=== PATIENT | female | born 1935 | race Caucasian/White ===

== ENCOUNTER 2017-12-11 07:32 | Emergency (ER) | payer MEDICARE ==
[2017-12-11] MEDS ORDERED: ASPIRIN 81 MG TABLET, CHEWABLE PO ONE (09:16)
--- NOTE | 2017-12-11 09:23 | ER Document Report ---
ED General - General Chief Complaint: High Blood Pressure Stated Complaint: POSSIBLE HIGH BLOOD PRESSURE/ NUMBNESS Time Seen by Provider: 12/11/17 08:40 Mode of Arrival: Ambulatory Information source: Patient Notes: 82 years old female presents today with complaint of left hand numbness chest pain and left facial numbness for the last 3 days. 3 days ago she was seen by the primary care physician. She states the numbness and pain in the hand is continuous. Only involving the hand and not the entire arm. The chest pain she says also continuous mild to moderate in intensity. It is not exacerbated by any activities or change of position. But when pressed upon it hurts more. Left facial numbness she describes the numbness as left half of the face. Persistent. Had some headache on and off. No nausea vomiting palpitation or diaphoresis. Denies any focal weakness numbness tingling sensation in other parts of the body. TRAVEL OUTSIDE OF THE [place] IN LAST 30 DAYS: No - HPI Onset: Other - 3 days ago Onset/Duration: Gradual Quality of pain: Achy Severity: Moderate Associated symptoms: denies: None, Allergy/hay fever, Body/muscle aches, Chest pain, Chills, Nonproductive cough, Productive cough, Diarrhea, Drooling, Earache , Fever, Headache, Hoarseness, Hurts to breath, Leg swelling, Nausea, Vomiting, Rhinnorhea, Sinus pain/drainage, Shortness of breath, Slow to respond, Sore throat, Sweating, Weakness, Other Exacerbated by: denies: Denies, Supine, Sitting, Standing, Movement, Walking, Coughing, Deep breathing, Food, Other Relieved by: denies: Denies, Supine, Sitting, Standing, Remaining still, Antacids, Food, Other Similar symptoms previously: No - Related Data Allergies/Adverse Reactions: Sulfa (Sulfonamide Antibiotics) Allergy (Unknown, Verified 12/11/17 07:33) metformin Allergy (Verified 12/11/17 07:33) Past Medical History - General Information source: Patient - Social History Smoking Status: Never Smoker Cigarette use (# per day): No Chew tobacco use (# tins/day): No Frequency of alcohol use: None Drug Abuse: None Family History: Reviewed & Not Pertinent Patient has suicidal ideation: No Patient has homicidal ideation: No - Past Medical History Cardiac Medical History: Reports: Hx Hypertension - medicated Denies: Hx Heart Attack Pulmonary Medical History: Denies: Hx Asthma Neurological Medical History: Denies: Hx Cerebrovascular Accident, Hx Seizures Endocrine Medical History: Reports: Hx Diabetes Mellitus Type 2 Renal/ Medical History: Denies: Hx Peritoneal Dialysis GI Medical History: Denies: Hx Hepatitis, Hx Hiatal Hernia, Hx Ulcer Infectious Medical History: Denies: Hx Hepatitis Past Surgical History: Reports: Hx Vascular Surgery - right carotid "cleaned out ". Denies: Hx Hysterectomy, Hx Mastectomy, Hx Open Heart Surgery, Hx Pacemaker - Immunizations Hx Diphtheria, Pertussis, Tetanus Vaccination: Yes Review of Systems - Review of Systems Constitutional: denies: No symptoms reported, See HPI, Chills, Diaphoresis, Fever, Malaise, Weakness, Other, Weight gain, Weight loss, Recent illness EENT: denies: No symptoms reported, See HPI, Eye pain, Eye discharge, Blurred vision, Tearing, Double vision, Ear pain, Ear discharge, Nose pain, Nose congestion, Nose discharge, Sinus pressure, Sinus discharge, Throat pain, Difficulty swallowing, Throat swelling, Mouth pain, Mouth swelling, Dental problem, Vertigo, Other Cardiovascular: Chest pain. denies: No symptoms reported, See HPI, Palpitations , Heart racing, Orthopnea, Dyspnea, Syncope, Dizziness, Lightheaded, Edema, Other, Paroxysmal Nocturnal Dysp Respiratory: denies: No symptoms reported, See HPI, Cough, Hurts to breathe, Hemoptysis, Short of breath, Sputum, Stridor, Wheezing, Other Gastrointestinal: denies: No symptoms reported, See HPI, Abdomen distended, Abdominal pain, Diarrhea, Nausea, Vomiting, Constipation, Blood streaked bowels , Poor appetite, Poor fluid intake, Blood in vomit, Black stools, Rectal bleeding, Last bowel movement, Fecal incontinence, Other Genitourinary: denies: No symptoms reported, See HPI, Burning, Dysuria, Discharge, Frequency, Flank pain, Hematuria, Incontinence, Pain, Urgency, Retention, Other Musculoskeletal: denies: No symptoms reported, See HPI, Back pain, Gout, Joint pain, Joint swelling, Muscle pain, Muscle stiffness, Neck pain, Deformity, Leg swelling, Ankle swelling, Other Skin: denies: No symptoms reported, See HPI, Change in color, Change in hair/ nails, Dryness, Lesions, Lumps, Rash, Other Hematologic/Lymphatic: denies: No symptoms reported, See HPI, Anemia, Blood clots, Easy bleeding, Easy bruising, Enlarged lymph nodes, Swollen glands, Other Neurological/Psychological: denies: No symptoms reported, See HPI, Confusion, Dementia, Depression, Hallucinations, Anxiety, Homicidal ideation, Sensory change, Weakness, Gait changes, Loss of power, Paralysis, Seizure, Lost consciousness, Headaches, Speech impairment, Numbness, Suicidal ideation, Tingling, Tremor, Other Physical Exam - Vital signs Vitals: Temp Pulse Resp BP Pulse Ox 98.4 F 80 20 231/97 H 95 12/11/17 07:39 12/11/17 07:39 12/11/17 07:39 12/11/17 07:39 12/11/17 07:39 - Notes Notes: PHYSICAL EXAMINATION: GENERAL: Well-appearing, well-nourished and in no acute distress. Appeared to be anxious HEAD: Atraumatic, normocephalic. EYES: Pupils equal round and reactive to light, extraocular movements intact, conjunctiva are normal. ENT: Nares patent, oropharynx clear without exudates. Moist mucous membranes. NECK: Normal range of motion, supple without lymphadenopathy LUNGS: Breath sounds clear to auscultation bilaterally and equal. No wheezes rales or rhonchi. Chest wall: Chest wall tenderness noted over the left side of the chest wall. HEART: Regular rate and rhythm without murmurs ABDOMEN: Soft, nontender, nondistended abdomen. No guarding, no rebound. No masses appreciated. Female : deferred Musculoskeletal: Normal range of motion, no pitting or edema. No cyanosis. NEUROLOGICAL: Cranial nerves grossly intact. Normal speech, normal gait. Normal sensory, motor exams PSYCH: Normal mood, normal affect. SKIN: Warm, Dry, normal turgor, no rashes or lesions noted. Course - Vital Signs Vital signs: Temp Pulse Resp BP Pulse Ox 98.4 F 77 17 171/90 H 95 12/11/17 07:39 12/11/17 08:35 12/11/17 11:01 12/11/17 11:01 12/11/17 11:01 - Laboratory Result Diagrams: 12/11/17 08:19 12/11/17 08:19 Laboratory results interpreted by me: 12/11/17 12/11/17 08:19 08:19 RBC 5.51 H RDW 14.9 H Carbon Dioxide 21 L Glucose 182 H Direct Bilirubin 0.6 H AST 42 H Total Protein 8.3 H - Diagnostic Test Radiology reviewed: Image reviewed, Reports reviewed Radiology results interpreted by me: 12/11/17 11:37 CT of the brain reported by radiologist as no acute stroke or a bleed. Some ischemic changes. Chest x-ray reported by radiologist as normal with no infiltration effusion or pneumothorax - EKG Interpretation by Me EKG shows normal: Sinus rhythm, [place] Rate: Normal Rhythm: NSR When compared to previous EKG there are: No significant change - Electrocardiogram shows normal sinus rhythm at rate of 76 bpm normal axis no acute ST elevation ST depression T-wave inversion noted. Nonspecific Q-wave in lead III. Discharge - Discharge Clinical Impression: Carpal tunnel syndrome of left wrist, Chest wall pain Condition: Fair Disposition: HOME, SELF-CARE Instructions: Chest Wall Pain ([facility]) Additional Instructions: Carpal tunnel syndrome Prescriptions: Oxycodone HCl/Acetaminophen [Percocet 5-325 mg Tablet] 1 - 2 tab PO Q4H PRN #15 tablet PRN Reason:
--- NOTE | 2017-12-11 10:08 | RADIOLOGY REPORT (SQ) ---
EXAM DESCRIPTION: CHEST SINGLE VIEW COMPLETED DATE/TIME: 12/11/2017 9:39 am REASON FOR STUDY: Chest pain COMPARISON: Two-view chest 02/23/2011 EXAM PARAMETERS: NUMBER OF VIEWS: One view. TECHNIQUE: Single frontal radiographic view of the chest acquired. RADIATION DOSE: NA LIMITATIONS: None. FINDINGS: LUNGS AND PLEURA: No opacities, masses or pneumothorax. No pleural effusion. MEDIASTINUM AND HILAR STRUCTURES: No masses. Contour normal. HEART AND VASCULAR STRUCTURES: Heart normal in size. Normal vasculature. BONES: No acute findings. HARDWARE: None in the chest. OTHER: No other significant finding. IMPRESSION: NO ACUTE RADIOGRAPHIC FINDING IN THE CHEST. TECHNICAL DOCUMENTATION: JOB ID: [id number] [employer]- All Rights Reserved Reading location - IP/workstation name: [email or web address]
[2017-12-11 10:25] LABS: ABSOLUTE BASOPHILS # (AUTO) 0.1 10^3/uL (0.0-0.2); ABSOLUTE EOSINOPHILS # (AUTO) 0.1 10^3/uL (0.0-0.6); ABSOLUTE MONOCYTES (AUTO) 0.7 10^3/uL (0.1-1.4); ABSOLUTE NEUT (AUTO) 6.4 10^3/uL (1.7-8.2); BASOPHILS % (AUTO) 0.6 % (0-2); EOSINOPHILS % (AUTO) 1.5 % (0-6); HEMATOCRIT 46.5 % (36.0-47.0); HEMOGLOBIN 15.3 g/dL (12.0-15.5); LYMPHOCYTES % (AUTO) 21.9 % (13-45); MEAN CORPUSCULAR HEMOGLOBIN 27.8 pg (27.0-33.4); MEAN CORPUSCULAR VOLUME 84 fl (80-97); MONOCYTES % (AUTO) 7.4 % (3-13); PLATELET COUNT 193 10^3/uL (150-450); RED BLOOD COUNT 5.51 10^6/uL (3.72-5.28); RED CELL DISTRIBUTION WIDTH 14.9 % (11.5-14.0); SEGMENTED NEUTROPHILS % (AUTO) 68.6 % (42-78); TOTAL CELLS COUNTED % (AUTO) 100 %; WHITE BLOOD COUNT 9.3 10^3/uL (4.0-10.5)
--- NOTE | 2017-12-11 10:26 | RADIOLOGY REPORT (SQ) ---
EXAM DESCRIPTION: CT HEAD WITHOUT COMPLETED DATE/TIME: 12/11/2017 9:48 am REASON FOR STUDY: Headache, strokelike symptoms COMPARISON: CT brain 01/26/2016 TECHNIQUE: Axial images acquired through the brain without intravenous contrast. Images reviewed wi th bone, brain and subdural windows. Images stored on PACS. All CT scanners at this facility use dose modulation, iterative reconstruction, and/or weight based d osing when appropriate to reduce radiation dose to as low as reasonably achievable (ALARA). [facility]: Dose Right [facility]: CareDose [facility]: Dose Right [facility]: Teradose 4D [facility]: Smart Anadys RADIATION DOSE: CT Rad equipment meets quality standard of care and radiation dose reduction techniq ues were employed. CTDIvol: 64.6 mGy. DLP: 1163 mGy-cm. mGy. LIMITATIONS: Mild motion artifact FINDINGS: VENTRICLES: Normal size and contour. CEREBRUM: Since the prior imaging 01/26/2016, patient has developed a well-circumscribed low-attenuati on lacunar infarct in the lateral right thalamus which is nonacute. There is moderate bifrontal and biparietal white matter small vessel ischemic change, stable. No CT evidence of acute large territor y ischemic change, acute intracranial hemorrhage, mass effect, or midline shift. CEREBELLUM: No masses. No hemorrhage. No alteration of density. No evidence for acute infarction. EXTRAAXIAL SPACES: No fluid collections. No masses. ORBITS AND GLOBE: No intra- or extraconal masses. Normal contour of globe without masses. CALVARIUM: No fracture. PARANASAL SINUSES: No fluid or mucosal thickening. SOFT TISSUES: No mass or hematoma. OTHER: No other significant finding. IMPRESSION: No acute findings today. Moderate bifrontal and biparietal chronic small vessel ischemic change, with a nonacute right alignme nt lacunar infarct. EVIDENCE OF ACUTE STROKE: NO. COMMENT: Quality ID # [id number]: Final reports with documentation of one or more dose reduction techniques (e.g., Automated exposure control, adjustment of the mA and/or kV according to patient size, use of iterative reconstruction technique) TECHNICAL DOCUMENTATION: JOB ID: [id number] [employer]- All Rights Reserved Reading location - IP/workstation name: [facility]
[2017-12-11 10:44] LABS: CREATINE KINASE MB 0.41 ng/mL (<4.55)
[2017-12-11 10:46] LABS: TROPONIN I < 0.012 ng/mL
[2017-12-11 10:59] LABS: ALANINE AMINOTRANSFERASE 20 U/L (9-52); ALBUMIN 4.7 g/dL (3.5-5.0); ALKALINE PHOSPHATASE 94 U/L (38-126); ANION GAP 16 (5-19); ASPARTATE AMINO TRANSFERASE 42 U/L (14-36); BILIRUBIN,DIRECT 0.6 mg/dL (0.0-0.4); BILIRUBIN,TOTAL 0.7 mg/dL (0.2-1.3); BLOOD UREA NITROGEN 16 mg/dL (7-20); CALCIUM 9.9 mg/dL (8.4-10.2); CARBON DIOXIDE 21 mmol/L (22-30); CHLORIDE 107 mmol/L (98-107); CREATINE KINASE 50 U/L (30-135); GLUCOSE 182 mg/dL (75-110); POTASSIUM 4.5 mmol/L (3.6-5.0); SODIUM 144.2 mmol/L (137-145); TOTAL PROTEIN 8.3 g/dL (6.3-8.2)
[2017-12-11 12:08] VITALS: BP 163/96
--- NOTE | 2017-12-11 13:04 | EKG REPORT ---
SEVERITY:- ABNORMAL ECG - SINUS RHYTHM NONSPECIFIC T ABNORMALITIES, LATERAL LEADS : Confirmed by: Ralf Cabrera MD 11-Dec-2017 13:03:54
== END 2017-12-11 12:08 | disposition home or self-care (01) ==
LOC: ER 07:32
DX: R07.89 Other chest pain (principal); G56.02 Carpal tunnel syndrome, left upper limb; R20.0 Anesthesia of skin; E11.9 Type 2 diabetes mellitus without complications; R51 Headache; Z88.8 Allergy status to other drugs, medicaments and biological substances; Z88.2 Allergy status to sulfonamides
CPT/HCPCS: 93005; 99284; 36415; 82553; 82550; 85025; 80053; 84484; 71045; 70450; 93010; A9270

== ENCOUNTER → 2018-02-12 | Day surgery (SDC) | payer MEDICARE ==
[~2018-02-12] MED LIST: BUPIVACAINE HCL 0.5 % INJ/PF 30 ML SDV ONE; CEFAZOLIN SODIUM 2 GM in DEXTROSE 5%-WATER 100 ML IV PRN; LIDOCAINE 1% INJ-PF (10 MG/ML) 30 ML SDV ONE
[2018-02-12 07:32] LABS: HEMATOCRIT 43.3 % (36.0-47.0); HEMOGLOBIN 14.3 g/dL (12.0-15.5); MEAN CORPUSCULAR HEMOGLOBIN 28.1 pg (27.0-33.4); MEAN CORPUSCULAR HGB CONC 33.1 g/dL (32.0-36.0); MEAN CORPUSCULAR VOLUME 85 fl (80-97); PLATELET COUNT 172 10^3/uL (150-450); RED BLOOD COUNT 5.11 10^6/uL (3.72-5.28); RED CELL DISTRIBUTION WIDTH 14.9 % (11.5-14.0); WHITE BLOOD COUNT 8.9 10^3/uL (4.0-10.5)
[2018-02-12 07:43] VITALS: BP 145/73
[2018-02-12 07:50] LABS: ANION GAP 16 (5-19); BLOOD UREA NITROGEN 29 mg/dL (7-20); CALCIUM 9.4 mg/dL (8.4-10.2); CARBON DIOXIDE 25 mmol/L (22-30); CHLORIDE 101 mmol/L (98-107); GLUCOSE 330 mg/dL (75-110); POTASSIUM 4.8 mmol/L (3.6-5.0); SODIUM 141.7 mmol/L (137-145)
--- NOTE | 2018-02-12 08:22 | RADIOLOGY REPORT (SQ) ---
EXAM DESCRIPTION: CHEST SINGLE VIEW COMPLETED DATE/TIME: 02/12/2018 7:35 am REASON FOR STUDY: pre op G56.02 CARPAL TUNNEL SYNDROME, LEFT UPPER LIMB COMPARISON: 04/05/2007, 02/23/2011, 12/11/2017 NUMBER OF VIEWS: Two view. TECHNIQUE: Frontal and lateral radiographic views of the chest acquired. LIMITATIONS: None. FINDINGS: LUNGS AND PLEURA: No opacities, masses or pneumothorax. No pleural effusion. Attenuated bl ood vessels and flattened marcela-diaphragms. MEDIASTINUM AND HILAR STRUCTURES: No masses. No contour abnormalities. HEART AND VASCULAR STRUCTURES: Heart normal in size and contour. No evidence for failure. BONES: No acute findings. HARDWARE: None in the chest. OTHER: No other significant finding. IMPRESSION: COPD. NO ACUTE RADIOGRAPHIC FINDING IN THE CHEST. TECHNICAL DOCUMENTATION: JOB ID: [id number] [employer]- All Rights Reserved Reading location - IP/workstation name: [facility]
--- NOTE | 2018-02-12 14:26 | EKG REPORT ---
SEVERITY:- ABNORMAL ECG - SINUS RHYTHM NONSPECIFIC T ABNORMALITIES, LATERAL LEADS : Confirmed by: Jony Ta 12-Feb-2018 14:25:50
== END ==
LOC: OROUT 06:29
PROVIDERS: ATTEND Orthopaedic Surgery
DX: G56.02 Carpal tunnel syndrome, left upper limb (principal); R94.31 Abnormal electrocardiogram [ECG] [EKG]
CPT/HCPCS: 36415; 85027; 80048; 71045; 93005; 93010; J0690; J3490

== ENCOUNTER 2018-02-26 06:31 | Day surgery (SDC) | payer MEDICARE ==
[~2018-02-26 06:31] MED LIST changes: +CEFAZOLIN 2 GM/D5W RTU 2 GM/50 ML RTUPB IV SCH; -CEFAZOLIN SODIUM 2 GM in DEXTROSE 5%-WATER 100 ML IV PRN
[2018-02-26] MEDS ORDERED: CEFAZOLIN SODIUM 2 GM in DEXTROSE 5%-WATER 100 ML IV PRN (08:17)
[2018-02-26] MEDS ORDERED: ONDANSETRON HCL INJ/PF 4 MG/2 ML SDV ONE (08:49)
[2018-02-26] MEDS ORDERED: FENTANYL CITRATE INJ/PF 100 MCG/2 ML AMPUL ONE (08:49)
[2018-02-26] MEDS ORDERED: MIDAZOLAM 2 MG/2 ML INJ ONE (08:49)
[2018-02-26] MEDS ORDERED: PROPOFOL INJ 200 MG/20 ML VIAL IV ONE (08:49)
[2018-02-26 09:06] LABS: APPEARANCE,URINE CLEAR; BILIRUBIN,URINE NEGATIVE (NEGATIVE); COLOR,URINE STRAW; GLUCOSE, URINE NEGATIVE (NEGATIVE); KETONES,URINE NEGATIVE (NEGATIVE); LEUKOCYTE ESTERASE,URINE NEGATIVE (NEGATIVE); NITRITE,URINE NEGATIVE (NEGATIVE); PROTEIN,URINE NEGATIVE (NEGATIVE); URINE SPECIFIC GRAVITY 1.006; UROBILINOGEN,URINE NEGATIVE mg/dL (<2.0)
[2018-02-26] MEDS ORDERED: FENTANYL CITRATE INJ/PF 100 MCG/2 ML AMPUL IV PRN ×3 (09:12)
[2018-02-26] MEDS ORDERED: ONDANSETRON HCL INJ/PF 4 MG/2 ML SDV IV PRN (09:12)
[2018-02-26] MEDS ORDERED: DIPHENHYDRAMINE HCL 50 MG/ML VIAL IV PRN (09:12)
[2018-02-26 14:12] VITALS: BP 140/76
--- NOTE | 2018-03-01 15:48 | Operative Report ---
Operative Report DATE OF SURGERY: 02/26/18 PREOPERATIVE DIAGNOSIS: Left Carpal Tunnel Syndrome POSTOPERATIVE DIAGNOSIS: Same OPERATION: Endoscopic Carpal Tunnel Release SURGEON: CLAUDIA WOODY ANESTHESIA: GA COMPLICATIONS: None ESTIMATED BLOOD LOSS: Minimal PROCEDURE: Indication for above procedure: 82-year-old female with complaints of numbness and tingling throughout her fingers. On physical examination she has findings suggesting carpal tunnel syndrome. We attempted conservative measures including bracing and injections which provided short-term but not long-term relief. Neurodiagnostic testing was also done however this was negative for carpal tunnel syndrome. Given patient's positive results after a carpal tunnel injection we discussed repeat injection versus operative intervention given the short-term relief of the injection patient elected to proceed with operative treatment. Procedure In Detail: Patient was seen and evaluated in the preoperative holding area. The LEFT upper extremity was initialized and marked. Patient received Ancef IV for bacterial prophylaxis. Patient was taken back to the operative room where transferred operative table. Patient was then placed under MAC anesthesia. Once adequately anesthetized, a nonsterile tourniquet was placed on the upper extremity. A surgical team debriefing was performed ensuring all instrumentation was available, the surgical procedure was discussed with possible concerns reviewed. Skin was prepped with alcohol a 50:50 10 mL mixture of 1% lidocaine and 0.5% Marcaine plain was injected locally and w/in carpal canal. The upper extremity was prepped with chlorhexidine and alcohol and draped in a sterile fashion. A timeout was done identifying correct patient, procedure and extremity everyone in attendance agree with this and verbalized no concerns.The extremity was then exsanguinated the tourniquet was inflated to 250 mmHg. A transverse skin incision was made just proximal to the wrist flexion crease ulnar to the palmaris longus. Blunt dissection was performed down to the palmaris longus tendon which was retracted radially. Deep to the palmaris longus tendon was the volar carpal ligament this was incised identifying the median nerve deep. With the use of a [place] elevator any soft tissue/synovium was freed from the undersurface of the transverse carpal ligament. The hook of hamate was identified ulnarly. The [employer]Med cannulas were then introduced beginning with #1 progressing to a #3 gently dilating the carpal canal. I then introduced the scope within the cannula and identified transverse carpal ligament ensuring the median nerve was not visualized within the cannula. I triangulated distally with a 25-gauge needle identifying the distal aspect of the transverse carpal ligament, to ensure protection of the superficial palmar arch. The arthroscopic knife was used to incise the transverse carpal ligament under direct visualization with the arthroscopic camera. Any excess transverse fibers that remained after the first past were carefully released with a repeat pass. The median nerve was then directly visualized radially without disruption. Once this was completed I placed the #3 dilator and assured I got complete release of the transverse carpal ligament without residual compression. The median nerve was directly visualized and free of any overlying compression. I then turned my attention to release of the volar antebrachial fascia proximally. Once again a [place] was used to open the wound and I proceeded with cannula #1 to #3. The arthroscope was introduced into the cannula and under direct visualization the volar antebrachial fascia was released. Once this was complete I copiusly irrigated the wound with normal saline. The skin incision was closed with 4-0 Monocryl subcutaneous and a running subcuticular 4-0 Monocryl. This was reinforced with Dermabond and Steri -Strips. Sterile, 4 x 4's and a Ambrosio bandage was placed loosely. Sponge counts , instrument counts and needle counts were correct. The was no intraoperative complications patient tolerated the procedure well and was stable to PACU.
--- NOTE | 2018-03-01 15:49 | Discharge Summary ---
Discharge Summary (SDC) - Discharge Final Diagnosis: Left carpal tunnel syndrome Date of Surgery: 02/26/18 Discharge Date: 02/26/18 Condition: Good Treatment or Instructions: Schedule Follow Up w/ Dr. Fabián Nevarez @ [facility] for [facility] to be seen in 10-14 days or as scheduled [place]: Ong: Enders: May remove dressing on postop day #3, keep incision covered and dry. Ice and elevate May begin finger range of motion attempting to make full fist. Stool softener of choice when on pain medication. Prescriptions: Hydrocodone/Acetaminophen [[place] 5-325 mg Tablet] 1 tab PO Q6 PRN #15 tablet PRN Reason: Referrals: TIMOTHY CARTER PA-C [Primary Care Provider] - Discharge Diet: As Tolerated Respiratory Treatments at Home: Deep Breathing/Coughing Discharge Activity: Activity As Tolerated Report the Following to Your Physician Immediately: Fever over 101 Degrees, Unusual Bleeding, Redness, Swelling, Warmth
== END 2018-02-26 12:30 | disposition home or self-care (01) ==
LOC: OROUT 06:31
PROVIDERS: ATTEND Orthopaedic Surgery
PROC: 01N54ZZ Release Median Nerve, Percutaneous Endoscopic Approach (ICD-10-PCS; principal; 2018-02-26 09:00)
DX: G56.02 Carpal tunnel syndrome, left upper limb (principal); E11.9 Type 2 diabetes mellitus without complications; I10 Essential (primary) hypertension; I20.9 Angina pectoris, unspecified; M19.90 Unspecified osteoarthritis, unspecified site; Z79.899 Other long term (current) drug therapy; Z88.8 Allergy status to other drugs, medicaments and biological substances; Z88.2 Allergy status to sulfonamides; Z79.84 Long term (current) use of oral hypoglycemic drugs; Z85.51 Personal history of malignant neoplasm of bladder; Z86.73 Personal history of transient ischemic attack (TIA), and cerebral infarction without residual deficits; Z87.891 Personal history of nicotine dependence
CPT/HCPCS: 36415; 82962; 82947; 81001; 83036; 29848; J2250; J0690; J3490; J2405; 1810; J2704; J3010

== ENCOUNTER → 2018-08-14 | Outpatient (CLI) | payer MEDICARE ==
--- NOTE | 2018-08-14 11:28 | RADIOLOGY REPORT (SQ) ---
EXAM DESCRIPTION: MRI CERVICAL SPINE WITHOUT COMPLETED DATE/TIME: 08/14/2018 10:36 am REASON FOR STUDY: CERVICAL DISC DISORDER W/ RADICULOPATHY, UNSPEC CERVICAL REGION M50.10 CERVICAL D ISC DISORDER W RADICULOPATHY, UNSP CERVICAL COMPARISON: None. TECHNIQUE: Sagittal and Axial imaging includes T1, T2, STIR and gradient echo sequences. LIMITATIONS: Mild motion artifact. FINDINGS: ALIGNMENT: Normal. VERTEBRAE: Intact. BONE MARROW: Normal. No marrow replacement or reactive changes. DISCS: Normal. No significant abnormal signal or loss of height. HARDWARE: None in the spine. CORD AND BASE OF BRAIN: Normal in size and signal intensity. SOFT TISSUES: No soft tissue masses. C1-C2: No significant spinal stenosis. C2-C3: No significant spinal stenosis or exit foraminal stenosis. C3-C4: Small asymmetric right-sided posterior disc and osteophyte formation. Borderline contact with the cervical cord. No significant spinal stenosis or exit foraminal stenosis. C4-C5: Mild posterior disc and osteophyte. No significant spinal stenosis or exit foraminal stenosis . C5-C6: Mild posterior disc and osteophyte. No significant spinal stenosis or exit foraminal stenosis . C6-C7: Mild posterior disc and osteophyte. Left uncovertebral spurring with left exit foraminal sten osis. No significant spinal stenosis. C7-T1: No significant spinal stenosis or exit foraminal stenosis. UPPER THORACIC: Incompletely imaged. No significant spinal stenosis or exit foraminal stenosis. OTHER: No other significant finding. IMPRESSION: MILD DEGENERATIVE CHANGES DESCRIBED ABOVE. TECHNICAL DOCUMENTATION: JOB ID: [id number] [employer]- All Rights Reserved Reading location - IP/workstation name: [facility]-[email or web address]
== END ==
LOC: RAD 09:57
PROVIDERS: ATTEND Orthopaedic Surgery
DX: M50.10 Cervical disc disorder with radiculopathy, unspecified cervical region (principal)
CPT/HCPCS: 72141

== ENCOUNTER → 2019-01-12 | Outpatient (CLI) | payer MEDICARE ==
[2019-01-12 09:04] LABS: ABSOLUTE EOSINOPHILS # (AUTO) 0.1 10^3/uL (0.0-0.6); ABSOLUTE LYMPHOCYTES (AUTO) 1.9 10^3/uL (0.5-4.7); ABSOLUTE MONOCYTES (AUTO) 0.7 10^3/uL (0.1-1.4); ABSOLUTE NEUT (AUTO) 5.2 10^3/uL (1.7-8.2); BASOPHILS % (AUTO) 0.6 % (0-2); EOSINOPHILS % (AUTO) 1.3 % (0-6); HEMATOCRIT 50.9 % (36.0-47.0); HEMOGLOBIN 16.9 g/dL (12.0-15.5); LYMPHOCYTES % (AUTO) 23.9 % (13-45); MEAN CORPUSCULAR HEMOGLOBIN 27.4 pg (27.0-33.4); MEAN CORPUSCULAR HGB CONC 33.2 g/dL (32.0-36.0); MEAN CORPUSCULAR VOLUME 82 fl (80-97); MONOCYTES % (AUTO) 8.5 % (3-13); PLATELET COUNT 174 10^3/uL (150-450); RED BLOOD COUNT 6.18 10^6/uL (3.72-5.28); RED CELL DISTRIBUTION WIDTH 15.3 % (11.5-14.0); SEGMENTED NEUTROPHILS % (AUTO) 65.7 % (42-78); TOTAL CELLS COUNTED % (AUTO) 100 %
[2019-01-12 09:13] LABS: APPEARANCE,URINE CLEAR; BILIRUBIN,URINE NEGATIVE (NEGATIVE); COLOR,URINE YELLOW; GLUCOSE, URINE >=500 mg/dL (NEGATIVE); KETONES,URINE NEGATIVE (NEGATIVE); LEUKOCYTE ESTERASE,URINE NEGATIVE (NEGATIVE); NITRITE,URINE NEGATIVE (NEGATIVE); PROTEIN,URINE NEGATIVE (NEGATIVE); URINE SPECIFIC GRAVITY 1.013; UROBILINOGEN,URINE NEGATIVE mg/dL (<2.0)
[2019-01-12 09:23] LABS: ALANINE AMINOTRANSFERASE 23 U/L (9-52); ALBUMIN 4.4 g/dL (3.5-5.0); ALKALINE PHOSPHATASE 108 U/L (38-126); ANION GAP 11 (5-19); ASPARTATE AMINO TRANSFERASE 22 U/L (14-36); BILIRUBIN,DIRECT 0.4 mg/dL (0.0-0.4); BILIRUBIN,TOTAL 0.8 mg/dL (0.2-1.3); BLOOD UREA NITROGEN 21 mg/dL (7-20); CALCIUM 10.1 mg/dL (8.4-10.2); CARBON DIOXIDE 26 mmol/L (22-30); CHLORIDE 104 mmol/L (98-107); CHOLESTEROL 232.53 mg/dL (0-200); GLUCOSE 115 mg/dL (75-110); POTASSIUM 4.6 mmol/L (3.6-5.0); SODIUM 140.8 mmol/L (137-145); TOTAL PROTEIN 7.6 g/dL (6.3-8.2); TRIGLYCERIDES 158 mg/dL (<150)
[2019-01-12 09:34] LABS: DIRECT LDL 156 mg/dL (<100)
[2019-01-12 09:35] LABS: VLDL CHOLESTEROL 31.6 mg/dL (10-31)
[2019-01-15 13:38] LABS: A/G RATIO. 1.4 (0.7-1.7); ALPHA-1-GLOBULIN 0.2 g/dL (0.0-0.4); BETA GLOBULIN 1.1 g/dL (0.7-1.3); IMMUNOGLOBULIN A 230 mg/dL (64-422); IMMUNOGLOBULIN G 1053 mg/dL (700-1600); IMMUNOGLOBULIN M 70 mg/dL (26-217); MONOCLONAL-SPIKE Not Observed g/dL (Not Observ)
== END ==
LOC: LAB 08:21
PROVIDERS: ATTEND Family Medicine
DX: D47.2 Monoclonal gammopathy (principal); E11.40 Type 2 diabetes mellitus with diabetic neuropathy, unspecified; I10 Essential (primary) hypertension; R53.83 Other fatigue; E55.9 Vitamin D deficiency, unspecified; R33.9 Retention of urine, unspecified
CPT/HCPCS: 36415; 80053; 80061; 81001; 82306; 83036; 84443; 85025; 86320

== ENCOUNTER → 2019-02-06 | Outpatient (CLI) | payer MEDICARE, OTHER ==
--- NOTE | 2019-02-06 11:17 | WOMENS IMAGING REPORT ---
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 LIMITATIONS: None. FINDINGS: LUMBAR SPINE: The bone mineral density (BMD) measured from L1-L4 in the AP projection correlates with a T-score of -1.5, which is osteopenia as defined by the World Health Organization. HIP: The bone mineral density (BMD) measured in the left hip correlates with a T-score of -2.0 in the femo ral neck, which is osteopenia as defined by the World Health Organization. IMPRESSION: 1. LUMBAR SPINE: Osteopenia 2. HIP: Osteopenia COMMENT: Patient's 10 year risk of major osteoporotic fracture is 9.4%. Her 10 year risk of hip fra cture is 2.7%. The World Health Organization defines low BMD as follows: T-score: Normal: Greater than -1.0 Osteopenia: Between -1.0 and -2.5 Osteoporosis: Less than -2.5 without fractures Established osteoporosis: Less than -2.5 with fractures In general, you may wish to consider: Diagnosis Treatment Follow-up DEXA Normal BMD Prevention 2-3 years Osteopenia Prevention/Therapy 1-2 years Osteoporosis Therapy Yearly TECHNICAL DOCUMENTATION: JOB ID: [id number] [employer]- All Rights Reserved Reading location - IP/workstation name: [email or web address]
--- NOTE | 2019-02-06 11:48 | RADIOLOGY REPORT (SQ) ---
EXAM DESCRIPTION: MRI CERVICAL SPINE WITHOUT COMPLETED DATE/TIME: 02/06/2019 11:14 am REASON FOR STUDY: CERVICAL CDISC DIORDER W/MYELOPATHY (M50.00) Z78.0 ASYMPTOMATIC MENOPAUSAL STATE M50.00 CERVICAL DISC DISORDER WITH MYELOPATHY, UNSP CERVICAL COMPARISON: MRI cervical spine 08/14/2018 TECHNIQUE: Sagittal and Axial imaging includes T1, T2, STIR and gradient echo sequences. LIMITATIONS: None. FINDINGS: ALIGNMENT: Normal. VERTEBRAE: Intact. BONE MARROW: Mild sclerotic vertebral body reactive endplate changes at C2-3 through C6-7 DISCS: Diffuse decreased T2 weighted intervertebral disc signal. Disc space loss of height at C5-6 a nd C6-7 HARDWARE: None in the spine. CORD AND BASE OF BRAIN: Normal in size and signal intensity. SOFT TISSUES: No soft tissue masses. C1-C2: No significant spinal stenosis. C2-C3: No central canal or left foraminal narrowing. Mild right foraminal narrowing from facet and u ncovertebral hypertrophy. C3-C4: Minimal posterior disc bulging and bony spurring partly effaces the ventral thecal sac and abu ts the ventral cord without cord flattening or abnormal intrinsic cord signal. No significant centra l canal or foraminal narrowing. C4-C5: Very mild posterior disc bulge and bony spurring is present without central or foraminal encro achment C5-C6: Mild diffuse posterior disc bulge and bony spurring partly effaces the ventral thecal sac with out cord flattening or abnormal intrinsic cord signal. Borderline central canal narrowing. No right foraminal narrowing. Mild to moderate left foraminal narrowing from facet and uncovertebral hypertr ophy C6-C7: Broad diffuse posterior disc bulge and bony spurring left greater than right partially effaces the ventral thecal sac and abuts the ventral cord without cord flattening. Borderline central canal narrowing. There is mild to moderate right and moderate to high-grade left foraminal narrowing from facet and uncovertebral hypertrophy C7-T1: No significant spinal stenosis or exit foraminal stenosis. UPPER THORACIC: Incompletely imaged. No significant spinal stenosis or exit foraminal stenosis. OTHER: No other significant finding. IMPRESSION: Mild degenerative changes as above TECHNICAL DOCUMENTATION: JOB ID: [id number]- All Rights Reserved Reading location - IP/workstation name: [email or web address]
== END ==
LOC: WI 09:58
PROVIDERS: ATTEND Family Medicine
DX: M50.00 Cervical disc disorder with myelopathy, unspecified cervical region (principal); Z78.0 Asymptomatic menopausal state
CPT/HCPCS: 72141; 77080

== ENCOUNTER → 2019-02-19 | Outpatient (CLI) | payer MEDICARE, OTHER ==
--- NOTE | 2019-02-20 21:38 | XCELERA REPORT ---
[address] [address] Transthoracic Echocardiogram Report Name: DAVIN HERNANDEZ Age: 83 yrs Gender: Female : 1935 Patient Status: Outpatient Patient Location: RAD Study Date: 02/19/2019 09:51 AM Height: 64 in Weight: 150 lb BSA: 1.7 m2 Procedure: A two-dimensional transthoracic echocardiogram with color flow and Doppler was performed. The study was technically limited with all images being suboptimal in quality. Reason For Study: CHEST PAIN History: CHEST PAIN. Ordering Physician: TEDDY JUAN Performed By: Anastacia Cadena Interpretation Summary The left ventricle is normal in size. There is mild to moderate concentric left ventricular hypertrophy. LV EF is 65% The left ventricular ejection fraction is within normal limits. Doppler measurements suggest impaired left ventricular relaxation, which is associated with grade I/IV or mild diastolic dysfunction The left ventricular wall motion is normal. There is no thrombus. There is no ventricular septal defect visualized. The right ventricle is moderately dilated. The right ventricular systolic function is mildly reduced. The right atrium is normal. The left atrial size is normal. The interatrial septum is intact with no evidence for an atrial septal defect. There is no Doppler evidence for an interatrial shunt There is moderate mitral annular calcification. There is no vegetation seen on the mitral valve. There is no mitral valve stenosis. There is a mild amount of mitral regurgitation There is no aortic valvular vegetation. There is aortic sclerosis without aortic stenosis. There is no LVOT obstruction. No aortic regurgitation is present. There is no tricuspid stenosis. There is a moderate amount of tricuspid regurgitation There is servere pulmonary hypertension by echo RVSP is 63 to 68 mm of Hg , with RA mean f 5 to 10. There is no pulmonic valvular stenosis. There is a moderate amount of pulmonic regurgitation The aortic root is normal size. The inferior vena cava appeared normal and decreased > 50% with respiration (RAP 5-10 mmHg) There is no pericardial effusion. MMode/2D Measurements & Calculations RVDd: 4.0 cm LVIDd: 4.1 cm FS: 35.6 % Ao root diam: 2.6 cm IVSd: 1.2 cm LVIDs: 2.6 cm EDV(Teich): 74.6 ml Ao root area: 5.3 cm2 LVPWd: 1.2 cm ESV(Teich): 25.7 ml LA dimension: 3.5 cm EF(Teich): 65.6 % Doppler Measurements & Calculations MV E max arlyn: MV P1/2t max arlyn: Ao V2 max: LV V1 max P.9 cm/sec 69.4 cm/sec 177.4 cm/sec 6.4 mmHg MV A max arlyn: MV P1/2t: 74.9 msec Ao max PG: LV V1 max: 113.4 cm/sec MVA(P1/2t): 2.9 cm2 12.6 mmHg 126.4 cm/sec MV E/A: 0.60 MV dec slope: 271.5 cm/sec2 MV dec time: 0.25 sec PA V2 max: PI end-d arlyn: TR max arlyn: MV P1/2t-pr_phl: 54.8 cm/sec 176.2 cm/sec 378.9 cm/sec 74.9 msec PA max P.2 mmHg TR max P.4 mmHg Left Ventricle The left ventricle is normal in size. There is mild to moderate concentric left ventricular hypertrophy. LV EF is 65%. The left ventricular ejection fraction is within normal limits. Doppler measurements suggest impaired left ventricular relaxation, which is associated with grade I/IV or mild diastolic dysfunction. The left ventricular wall motion is normal. There is no thrombus. There is no ventricular septal defect visualized. Right Ventricle The right ventricle is moderately dilated. The right ventricular systolic function is mildly reduced. Atria The right atrium is normal. The left atrial size is normal. The interatrial septum is intact with no evidence for an atrial septal defect. There is no Doppler evidence for an interatrial shunt. Mitral Valve There is moderate mitral annular calcification. There is no evidence of mitral valve prolapse. There is no vegetation seen on the mitral valve. There is no mitral valve stenosis. There is a mild amount of mitral regurgitation. Aortic Valve There is no aortic valvular vegetation. There is aortic sclerosis without aortic stenosis. There is no LVOT obstruction. No aortic regurgitation is present. Tricuspid Valve There is no tricuspid stenosis. There is a moderate amount of tricuspid regurgitation. There is servere pulmonary hypertension by echo. RVSP is 63 to 68 mm of Hg , with RA mean f 5 to 10. Pulmonic Valve There is no pulmonic valvular stenosis. There is a moderate amount of pulmonic regurgitation. Great Vessels The aortic root is normal size. The inferior vena cava appeared normal and decreased > 50% with respiration (RAP 5-10 mmHg). Effusions There is no pericardial effusion. : TEDDY JUAN > Nadiya Pablo
== END ==
LOC: RAD 08:33
PROVIDERS: ATTEND Internal Medicine Cardiovascular Disease
DX: R07.9 Chest pain, unspecified (principal)
CPT/HCPCS: 93306

== ENCOUNTER → 2019-02-25 | Outpatient (CLI) | payer MEDICARE, OTHER ==
[~2019-02-25] MED LIST changes: +AMINOPHYLLINE INJ/PF 250 MG/10 ML SDV IV ONE; -BUPIVACAINE HCL 0.5 % INJ/PF 30 ML SDV ONE; -CEFAZOLIN 2 GM/D5W RTU 2 GM/50 ML RTUPB IV SCH; -LIDOCAINE 1% INJ-PF (10 MG/ML) 30 ML SDV ONE; +REGADENOSON INJ 0.4 MG/5 ML DISP.SYRIN IV ONE
--- NOTE | 2019-02-26 06:34 | RADIOLOGY REPORT ---
STRESS TEST REPORT PATIENT NAME: DAVIN HERNANDEZ ROOM#: DATE OF SERVICE: 02/25/2019 AGE: 83Y ORDER#: [id number] REFERRING MD: TEDDY JUAN M.D. INDICATION: For assessment of chest pain. PROCEDURE PERFORMED: Stress/rest single isotope Cardiolite SPECT imaging with IV Lexiscan stress and gated SPECT imaging. CLINICAL HISTORY: This is an 83-year-old female with no known coronary artery disease, but has complaints of chest pain and coronary artery risk factors of diabetes, hypertension, and hypercholesterolemia. REPORT The patient received IV Lexiscan 0.4 mg infused over 10 seconds and flushed. The resting heart rate was 65 bpm and increased to 92 bpm at end infusion. The resting blood pressure was 122/64 and stayed around 116/64 at end infusion. The patient had symptoms of nausea, heaviness in the chest, and some shortness of breath. On auscultation, there was no wheezing. At 5 minutes postinjection, she was given IV aminophylline 100 mg, with total resolution of her nausea and chest heaviness. Myocardial perfusion imaging was performed at rest 60 minutes following the injection of 10.43 mCi of Cardiolite. Ten seconds after the IV Lexiscan injection, the patient was given with 30.2 mCi of Cardiolite and flushed. Gated poststress tomographic imaging was performed 60 minutes after stress. SUMMARY OF FINDINGS/IMPRESSION: The overall quality of the study is fair. The left ventricular cavity is noted to be normal in size on both the rest and stress studies. There is no evidence of gross transient ischemic dilatation of the left ventricle, although the TID ratio calculated via computer was 1.16. SPECT images showed a small area of moderate visible ischemia in the basal inferior wall and the basal inferoseptal wall. There was no fixed perfusion defect. The gated SPECT imaging showed no motion and contraction of the basal inferoseptal wall and basal inferior wall. The left ventricular ejection fraction was calculated to be 53%. IMPRESSION: Myocardial perfusion imaging is abnormal. There is a small area of moderate visible ischemia in the basal inferoseptal wall and basal inferior wall, but no fixed perfusion defect. The left ventricular ejection fraction was normal at 53% and there was normal motion and contraction in these areas. No prior study for comparison. INTERPRETING PHYSICIAN: RAMILA ESCALONA M.D. /: [id number] TT: [id number] ID: [id number] /: [id number] TD: [id number] JOB: [id number] cc:Marichuy GOODWIN M.D. >
== END ==
LOC: RAD 06:28
PROVIDERS: ATTEND Internal Medicine Cardiovascular Disease
DX: R07.9 Chest pain, unspecified (principal)
CPT/HCPCS: 93017; 78452; A9500; J2785; J0280; Q9969

== ENCOUNTER 2019-03-22 07:22 | Emergency (ER) | payer MEDICARE, OTHER ==
[2019-03-22 08:44] LABS: ALANINE AMINOTRANSFERASE 25 U/L (9-52); ALBUMIN 4.3 g/dL (3.5-5.0); ALKALINE PHOSPHATASE 102 U/L (38-126); ANION GAP 9 (5-19); ASPARTATE AMINO TRANSFERASE 20 U/L (14-36); BILIRUBIN,DIRECT 0.3 mg/dL (0.0-0.4); BILIRUBIN,TOTAL 0.5 mg/dL (0.2-1.3); BLOOD UREA NITROGEN 15 mg/dL (7-20); CALCIUM 9.7 mg/dL (8.4-10.2); CARBON DIOXIDE 27 mmol/L (22-30); CHLORIDE 105 mmol/L (98-107); CREATINE KINASE 31 U/L (30-135); GLUCOSE 125 mg/dL (75-110); POTASSIUM 4.7 mmol/L (3.6-5.0); TOTAL PROTEIN 7.2 g/dL (6.3-8.2)
[2019-03-22 08:48] LABS: ABSOLUTE EOSINOPHILS # (AUTO) 0.2 10^3/uL (0.0-0.6); ABSOLUTE LYMPHOCYTES (AUTO) 1.4 10^3/uL (0.5-4.7); ABSOLUTE MONOCYTES (AUTO) 1.3 10^3/uL (0.1-1.4); ABSOLUTE NEUT (AUTO) 5.5 10^3/uL (1.7-8.2); BASOPHILS % (AUTO) 0.4 % (0-2); EOSINOPHILS % (AUTO) 1.9 % (0-6); HEMATOCRIT 47.7 % (36.0-47.0); HEMOGLOBIN 15.7 g/dL (12.0-15.5); LYMPHOCYTES % (AUTO) 16.8 % (13-45); MEAN CORPUSCULAR HEMOGLOBIN 27.6 pg (27.0-33.4); MEAN CORPUSCULAR VOLUME 84 fl (80-97); PLATELET COUNT 161 10^3/uL (150-450); RED CELL DISTRIBUTION WIDTH 15.8 % (11.5-14.0); SEGMENTED NEUTROPHILS % (AUTO) 65.9 % (42-78); TOTAL CELLS COUNTED % (AUTO) 100 %; WHITE BLOOD COUNT 8.4 10^3/uL (4.0-10.5)
[2019-03-22 08:56] LABS: CREATINE KINASE MB 0.56 ng/mL (<4.55); NT PRO BNP 526 pg/mL (<450)
[2019-03-22 08:58] LABS: TROPONIN I < 0.012 ng/mL
--- NOTE | 2019-03-22 09:20 | ER Document Report ---
ED General - General Chief Complaint: Breathing Difficulty Stated Complaint: DIFFICULTY BREATHING Time Seen by Provider: 03/22/19 08:40 Primary Care Provider: TEDDY WILLARD MD [Primary Care Provider] - Follow up as needed TRAVEL OUTSIDE OF THE [place] IN LAST 30 DAYS: No - HPI Notes: Patient is a 83-year-old female that presents to the emergency department for chief complaint of cough and shortness of breath. Patient reports cough, congestion and sinus pressure over the last week. She denies any fevers or chills. She states that she became more short of breath last night and had a difficult time sleeping. Her cough is productive with a green sputum. She denies ever needing breathing treatments or oxygen at home. Patient also does report a right-sided chest pain which she describes as a sharp pain that is intermittent and has been ongoing for the last 2 days. The pain lasts for about 1 second at a time and then resolves. She is currently not expressing any chest pain. Patient has never had a heart catheterization before but did have an MRI of her heart which showed mild CAD, this was done with Dr. Willard reportedly a few months ago. Patient denies any nausea/vomiting, abdominal pain, numbness and weakness Past Medical History: CHF, pulmonary hypertension, hypertension, hyperlipidemia, diabetes, CAD Past Surgical History: Right carotid endarterectomy, bladder cancer surgery Social History: Denies drugs alcohol and tobacco use Family History: Reviewed and noncontributory for presenting illness Allergies: Reviewed, see documented allergy list. REVIEW OF SYSTEMS: CONSTITUTIONAL : No fever No chills No diaphoresis No recent illness EENT: No vision changes No congestion No sore throat CARDIOVASCULAR: No chest pain No palpitations RESPIRATORY: shortness of breath cough difficulty breathing GASTROINTESTINAL: No abdominal pain No nausea No vomiting No diarrhea GENITOURINARY: No dysuria No hematuria No difficulty urinating MUSCULOSKELETAL: No back pain No leg pain No arm pain SKIN: No rashes No lesions LYMPHATIC: No swollen, enlarged glands. NEUROLOGICAL: No lightheadedness No headache No weakness No paresthesias PSYCHIATRIC: No anxiety No depression PHYSICAL EXAMINATION: Vital signs reviewed, nursing noted reviewed. GENERAL: Well-appearing, well-nourished and in no acute distress. HEAD: Atraumatic, normocephalic. EYES: Eyes appear normal, extraocular movements intact, sclera anicteric, conjunctiva are normal. ENT: nares patent, oropharynx clear without exudates. Moist mucous membranes. NECK: Normal range of motion, supple without lymphadenopathy LUNGS: Breath sounds mildly diminished to auscultation bilaterally and equal. No accessory muscle use or retractions. No rhonchi or wheezing HEART: Regular rate and rhythm without murmurs ABDOMEN: Soft, nontender, normoactive bowel sounds. No rebound, guarding, or rigidity. No masses appreciated. EXTREMITIES: Nontender, good range of motion, no pitting or edema. NEUROLOGICAL: No focal neurological deficits. Moves all extremities spontaneously Motor and sensory grossly intact on exam. PSYCH: Normal mood, normal affect. SKIN: Warm, Dry, normal turgor, no rashes or lesions noted on exposed skin - Related Data Allergies/Adverse Reactions: Sulfa (Sulfonamide Antibiotics) Allergy (Unknown, Verified 03/22/19 07:23) metformin Allergy (Verified 03/22/19 07:23) Past Medical History - Social History Smoking Status: Unknown if Ever Smoked Family History: Reviewed & Not Pertinent Patient has suicidal ideation: No Patient has homicidal ideation: No - Past Medical History Cardiac Medical History: Reports: Hx Hypertension - medicated Denies: Hx Coronary Artery Disease, Hx Heart Attack Pulmonary Medical History: Denies: Hx Asthma, Hx Bronchitis, Hx COPD, Hx Pneumonia Neurological Medical History: Denies: Hx Cerebrovascular Accident, Hx Seizures Endocrine Medical History: Reports: Hx Diabetes Mellitus Type 2 Renal/ Medical History: Denies: Hx Peritoneal Dialysis GI Medical History: Denies: Hx Hepatitis, Hx Hiatal Hernia, Hx Ulcer Musculoskeletal Medical History: Reports Hx Arthritis Infectious Medical History: Denies: Hx Hepatitis Past Surgical History: Reports: Hx Vascular Surgery - right carotid "cleaned out". Denies: Hx Hysterectomy, Hx Mastectomy, Hx Open Heart Surgery, Hx Pacemaker - Immunizations Hx Diphtheria, Pertussis, Tetanus Vaccination: Yes Physical Exam - Vital signs Vitals: Temp Pulse Resp BP Pulse Ox 98.4 F 65 20 164/58 H 88 L 03/22/19 07:28 03/22/19 07:28 03/22/19 07:28 03/22/19 07:28 03/22/19 07:28 Course - Re-evaluation Re-evalutation: 03/22/19 09:20 Vitals reviewed. Nursing notes reviewed. Patient was mildly hypoxic on room air presentation and was placed on 2 L nasal cannula which has improved her oxygen saturation to 96%. She is otherwise afebrile and does not appear toxic. 03/22/19 11:23 Patient was given DuoNeb and when she was reevaluated her oxygen level was now 93% on room air. She states she is feeling much better. Chest x-ray shows left basilar atelectasis however patient symptoms are more consistent with pneumonia. I suspect she may have a left lower lobe pneumonia. Patient has a negative troponin but her EKG shows new T wave inversions concerning for possible ischemia in the setting of CAD. Patient was recommended to be admitted to the hospital for further evaluation of her EKG changes, chest pain and low oxygen levels. Patient would not like to be admitted to the hospital. She understands risks, benefits, and alternative treatment plans. Patient would like to sign out AGAINST MEDICAL ADVICE. Her family is at bedside and states they will monitor her at home and have her return for new or worsening symptoms. Patient is aware she can return at any point time for further management. She will be started on azithromycin for possible pneumonia. She will be given albuterol inhaler for symptomatic management. She was told to take aspirin at home daily. She will follow with Dr. Willard Sunday morning if she does not return to the emergency room. Laboratory 03/22/19 03/22/19 03/22/19 07:46 07:46 07:46 WBC 8.4 RBC 5.70 H Hgb 15.7 H Hct 47.7 H MCV 84 MCH 27.6 MCHC 33.0 RDW 15.8 H Plt Count 161 Seg Neutrophils % 65.9 Lymphocytes % 16.8 Monocytes % 15.0 H Eosinophils % 1.9 Basophils % 0.4 Absolute Neutrophils 5.5 Absolute Lymphocytes 1.4 Absolute Monocytes 1.3 Absolute Eosinophils 0.2 Absolute Basophils 0.0 Sodium 141.0 Potassium 4.7 Chloride 105 Carbon Dioxide 27 Anion Gap 9 BUN 15 Creatinine 0.79 Est GFR ( Amer) > 60 Est GFR (Non-Af Amer) > 60 Glucose 125 H Calcium 9.7 Total Bilirubin 0.5 Direct Bilirubin 0.3 Neonat Total Bilirubin Not Reportable Neonat Direct Bilirubin Not Reportable Neonat Indirect Bili Not Reportable AST 20 ALT 25 Alkaline Phosphatase 102 Creatine Kinase 31 CK-MB (CK-2) 0.56 Troponin I < 0.012 NT-Pro-B Natriuret Pep 526 H Total Protein 7.2 Albumin 4.3 Urine Color Urine Appearance Urine pH Ur Specific [place] Urine Protein Urine Glucose (UA) Urine Ketones Urine Blood Urine Nitrite Urine Bilirubin Urine Urobilinogen Ur Leukocyte Esterase Urine WBC (Auto) Urine RBC (Auto) Urine Ascorbic Acid 03/22/19 09:05 WBC RBC Hgb Hct MCV MCH MCHC RDW Plt Count Seg Neutrophils % Lymphocytes % Monocytes % Eosinophils % Basophils % Absolute Neutrophils Absolute Lymphocytes Absolute Monocytes Absolute Eosinophils Absolute Basophils Sodium Potassium Chloride Carbon Dioxide Anion Gap BUN Creatinine Est GFR ( Amer) Est GFR (Non-Af Amer) Glucose Calcium Total Bilirubin Direct Bilirubin Neonat Total Bilirubin Neonat Direct Bilirubin Neonat Indirect Bili AST ALT Alkaline Phosphatase Creatine Kinase CK-MB (CK-2) Troponin I NT-Pro-B Natriuret Pep Total Protein Albumin Urine Color YELLOW Urine Appearance SLIGHTLY-CLOUDY Urine pH 5.0 Ur Specific [place] 1.013 Urine Protein NEGATIVE Urine Glucose (UA) NEGATIVE Urine Ketones NEGATIVE Urine Blood NEGATIVE Urine Nitrite NEGATIVE Urine Bilirubin NEGATIVE Urine Urobilinogen NEGATIVE Ur Leukocyte Esterase NEGATIVE Urine WBC (Auto) 3 Urine RBC (Auto) 1 Urine Ascorbic Acid NEGATIVE Chest X-Ray 03/22/19 08:17 IMPRESSION: Left basilar atelectasis. - Vital Signs Vital signs: Temp Pulse Resp BP Pulse Ox 98.4 F 65 17 117/39 L 96 03/22/19 07:28 03/22/19 07:28 03/22/19 10:01 03/22/19 10:01 03/22/19 10:01 - Laboratory Result Diagrams: 03/22/19 07:46 03/22/19 07:46 Laboratory results interpreted by me: 03/22/19 03/22/19 03/22/19 07:46 07:46 07:46 RBC 5.70 H Hgb 15.7 H Hct 47.7 H RDW 15.8 H Monocytes % 15.0 H Glucose 125 H NT-Pro-B Natriuret Pep 526 H - EKG Interpretation by Me Additional EKG results interpreted by me: 03/22/19 09:21 Interpreted by myself 0734: Normal sinus rhythm, rate 56, normal axis, T wave inversion lead III, aVF, V3-V6 which is new compared to 02/12/2018. No STEMI Discharge - Discharge Clinical Impression: Abnormal EKG, Hypoxia Pneumonia Qualifiers: Pneumonia type: due to unspecified organism Laterality: left Lung location: lower lobe of lung Qualified Code(s): J18.1 - Lobar pneumonia, unspecified organism Condition: Fair Disposition: AGAINST MEDICAL ADVICE Instructions: Pneumonia ([facility]), Electrogram Abnormality ([facility]) Prescriptions: Albuterol Sulfate [Proair HFA Inhalation Aerosol 8.5 gm MDI] 2 puff IH Q4H PRN #1 mdi PRN Reason: Azithromycin [Zithromax 250 mg Tablet] 250 mg PO DAILY #4 tablet Referrals: TEDDY WILLARD MD [Primary Care Provider] - 03/24/19
--- NOTE | 2019-03-22 09:23 | RADIOLOGY REPORT (SQ) ---
EXAM DESCRIPTION: CHEST SINGLE VIEW COMPLETED DATE/TIME: 03/22/2019 8:44 am REASON FOR STUDY: SOB COMPARISON: 12/11/2017 EXAM PARAMETERS: NUMBER OF VIEWS: One view. TECHNIQUE: Single frontal radiographic view of the chest acquired. RADIATION DOSE: NA LIMITATIONS: None. FINDINGS: LUNGS AND PLEURA: Hazy density partially silhouetting the left diaphragm. Right lung is c lear. MEDIASTINUM AND HILAR STRUCTURES: No masses. Contour normal. HEART AND VASCULAR STRUCTURES: Heart normal in size. Normal vasculature. BONES: No acute findings. HARDWARE: None in the chest. OTHER: No other significant finding. IMPRESSION: Left basilar atelectasis. TECHNICAL DOCUMENTATION: JOB ID: [id number] [employer]- All Rights Reserved Reading location - IP/workstation name: [email or web address]
[2019-03-22 10:08] LABS: APPEARANCE,URINE SLIGHTLY-CLOUDY; BILIRUBIN,URINE NEGATIVE (NEGATIVE); COLOR,URINE YELLOW; GLUCOSE, URINE NEGATIVE (NEGATIVE); KETONES,URINE NEGATIVE (NEGATIVE)
[2019-03-22 10:09] LABS: NITRITE,URINE NEGATIVE (NEGATIVE); PROTEIN,URINE NEGATIVE (NEGATIVE); URINE SPECIFIC GRAVITY 1.013; UROBILINOGEN,URINE NEGATIVE mg/dL (<2.0)
[2019-03-22 10:10] LABS: LEUKOCYTE ESTERASE,URINE NEGATIVE (NEGATIVE)
[2019-03-22] MEDS ORDERED: IPRATROPIUM/ALBUTEROL 0.5-2.5 MG/3 ML AMPUL NEB ONE ×2 (10:46→10:48)
[2019-03-22 10:55] VITALS: BP 117/39
[2019-03-22] MEDS ORDERED: AZITHROMYCIN 250 MG TABLET PO ONE (11:28)
--- NOTE | 2019-03-22 11:51 | EKG REPORT ---
SEVERITY:- ABNORMAL ECG - SINUS RHYTHM MULTIPLE ATRIAL PREMATURE COMPLEXES ABNORMAL T, CONSIDER ISCHEMIA, DIFFUSE LEADS : Confirmed by: Ralf Cabrera MD 22-Mar-2019 11:50:03
== END 2019-03-22 11:41 | disposition left against medical advice (07) ==
LOC: ER 07:22
DX: J18.1 Lobar pneumonia, unspecified organism (principal); R09.02 Hypoxemia; R94.31 Abnormal electrocardiogram [ECG] [EKG]; I50.9 Heart failure, unspecified; I11.0 Hypertensive heart disease with heart failure; E78.5 Hyperlipidemia, unspecified; E11.9 Type 2 diabetes mellitus without complications
CPT/HCPCS: 93005; 94640; 99285; 36415; 82553; 82550; 85025; 80053; 81001; 84484; 83880; 71045; 93010; A9270 ×2; J7620

== ENCOUNTER → 2019-05-31 | Outpatient (CLI) | payer MEDICARE, OTHER ==
[2019-05-31 08:58] LABS: ABSOLUTE BASOPHILS # (AUTO) 0.1 10^3/uL (0.0-0.2); ABSOLUTE EOSINOPHILS # (AUTO) 0.2 10^3/uL (0.0-0.6); ABSOLUTE LYMPHOCYTES (AUTO) 2.2 10^3/uL (0.5-4.7); ABSOLUTE MONOCYTES (AUTO) 0.7 10^3/uL (0.1-1.4); ABSOLUTE NEUT (AUTO) 5.9 10^3/uL (1.7-8.2); BASOPHILS % (AUTO) 0.6 % (0-2); EOSINOPHILS % (AUTO) 2.3 % (0-6); HEMATOCRIT 47.8 % (36.0-47.0); HEMOGLOBIN 15.8 g/dL (12.0-15.5); LYMPHOCYTES % (AUTO) 24.4 % (13-45); MEAN CORPUSCULAR HEMOGLOBIN 28.1 pg (27.0-33.4); MEAN CORPUSCULAR VOLUME 85 fl (80-97); MONOCYTES % (AUTO) 8.2 % (3-13); PLATELET COUNT 165 10^3/uL (150-450); RED BLOOD COUNT 5.62 10^6/uL (3.72-5.28); RED CELL DISTRIBUTION WIDTH 14.5 % (11.5-14.0); SEGMENTED NEUTROPHILS % (AUTO) 64.5 % (42-78); TOTAL CELLS COUNTED % (AUTO) 100 %; WHITE BLOOD COUNT 9.1 10^3/uL (4.0-10.5)
[2019-05-31 09:15] LABS: ALBUMIN 4.6 g/dL (3.5-5.0); ALKALINE PHOSPHATASE 94 U/L (38-126); ANION GAP 8 (5-19); ASPARTATE AMINO TRANSFERASE 21 U/L (14-36); BILIRUBIN,DIRECT 0.3 mg/dL (0.0-0.4); BILIRUBIN,TOTAL 0.5 mg/dL (0.2-1.3); BLOOD UREA NITROGEN 16 mg/dL (7-20); CALCIUM 9.7 mg/dL (8.4-10.2); CARBON DIOXIDE 28 mmol/L (22-30); CHLORIDE 105 mmol/L (98-107); CHOLESTEROL 223.44 mg/dL (0-200); GLUCOSE 144 mg/dL (75-110); TOTAL PROTEIN 7.4 g/dL (6.3-8.2); TRIGLYCERIDES 167 mg/dL (<150)
[2019-05-31 09:26] LABS: DIRECT LDL 156 mg/dL (<100)
[2019-05-31 09:28] LABS: VLDL CHOLESTEROL 33.4 mg/dL (10-31)
[2019-06-02 03:36] LABS: MICROALBUMIN URINE 251.5 ug/mL (Not Estab.)
== END ==
LOC: OD 08:18
PROVIDERS: ATTEND Family Medicine
DX: E78.5 Hyperlipidemia, unspecified (principal); E11.40 Type 2 diabetes mellitus with diabetic neuropathy, unspecified; D75.1 Secondary polycythemia
CPT/HCPCS: 36415; 80053; 80061; 82043; 82570; 83036; 84443; 85025

== ENCOUNTER → 2019-06-04 | Outpatient (CLI) | payer MEDICARE, OTHER ==
--- NOTE | 2019-06-04 12:46 | RADIOLOGY REPORT (SQ) ---
EXAM DESCRIPTION: CHEST PA/LATERAL COMPLETED DATE/TIME: 06/04/2019 12:30 pm REASON FOR STUDY: UNSPECIFIED BACTERIAL PNEUMONIA COMPARISON: 03/22/2019 EXAM PARAMETERS: NUMBER OF VIEWS: two views TECHNIQUE: Digital Frontal and Lateral radiographic views of the chest acquired. RADIATION DOSE: NA LIMITATIONS: none FINDINGS: LUNGS AND PLEURA: Stable interstitial changes without focal consolidation, pleural effusio n pneumothorax. MEDIASTINUM AND HILAR STRUCTURES: No masses or contour abnormalities. HEART AND VASCULAR STRUCTURES: Normal heart size. Aortic atherosclerosis. BONES: No acute findings. HARDWARE: None in the chest. OTHER: No other significant finding. IMPRESSION: Stable chronic changes without focal consolidation or other evidence of acute cardiopulm onary process. TECHNICAL DOCUMENTATION: JOB ID: [id number] [employer]- All Rights Reserved Reading location - IP/workstation name: [email or web address]
== END ==
LOC: OD 12:16
PROVIDERS: ATTEND Family Medicine
DX: J15.9 Unspecified bacterial pneumonia (principal)
CPT/HCPCS: 71046

== ENCOUNTER → 2019-09-02 | Outpatient (CLI) | payer MEDICARE, OTHER ==
[2019-09-02 12:18] LABS: ANION GAP 14 (5-19); BLOOD UREA NITROGEN 17 mg/dL (7-20); CALCIUM 9.9 mg/dL (8.4-10.2); CARBON DIOXIDE 27 mmol/L (22-30); CHLORIDE 101 mmol/L (98-107); GLUCOSE 205 mg/dL (75-110); POTASSIUM 5.5 mmol/L (3.6-5.0)
== END ==
LOC: OD 11:17
PROVIDERS: ATTEND Family Medicine
DX: E11.40 Type 2 diabetes mellitus with diabetic neuropathy, unspecified (principal)
CPT/HCPCS: 36415; 80048; 83036

== ENCOUNTER → 2019-12-09 | Outpatient (CLI) | payer MEDICARE, OTHER ==
--- NOTE | 2019-12-09 10:50 | RADIOLOGY REPORT (SQ) ---
EXAM DESCRIPTION: MRI HEAD WITHOUT COMPLETED DATE/TIME: 12/09/2019 10:41 am REASON FOR STUDY: R27.0 ATAXIA, UNSPECIFIED R27.0 ATAXIA, UNSPECIFIED COMPARISON: CT dated 12/11/2017. TECHNIQUE: Multiplanar imaging includes non-contrasted T1, T2, FLAIR, and diffusion with ADC map seq uences. Images stored on PACS. LIMITATIONS: Motion artifact. FINDINGS: ANATOMY: No anomalies. Normal vascular flow voids. Pituitary fossa normal. CSF SPACES: Atrophy induced prominence of ventricles and CSF spaces. CEREBRUM: High signal intensity lesions scattered throughout the white matter on FLAIR imaging with d istribution suggesting micro-vascular ischemic changes. No evidence of hemorrhage, mass, or extraaxi al fluid collection. POSTERIOR FOSSA: No signal alteration. No hemorrhage. No edema, masses or mass effect. Internal cici tory canals, cerebello-pontine angles, mastoids normal. DIFFUSION IMAGING: Negative for acute or sub-acute infarction. ORBITS: No masses. Globes normal. PARANASAL SINUSES: No fluid levels. Mucosa normal. OTHER: No other significant finding. IMPRESSION: ATROPHY AND CHRONIC MICRO-VASCULAR ISCHEMIC CHANGES. OTHERWISE NORMAL MRI OF THE BRAIN W ITHOUT INTRAVENOUS GADOLINIUM CONTRAST. EVIDENCE OF ACUTE STROKE: NO. TECHNICAL DOCUMENTATION: JOB ID: [id number] [employer]- All Rights Reserved Reading location - IP/workstation name: [email or web address]
== END ==
LOC: RAD 09:29
PROVIDERS: ATTEND Family Medicine
DX: R27.0 Ataxia, unspecified (principal)
CPT/HCPCS: 70551

== ENCOUNTER → 2020-03-16 | Outpatient (CLI) | payer MEDICARE, OTHER ==
--- NOTE | 2020-03-16 09:33 | ER RDC ASSESSMENT REPORT ---
Intake - In the Last 14 days Have you traveled outside [place]?: No Have you been in close contact with someone CONFIRMED: No Worked in Healthcare?: No - Symptoms Subjective Fever([place] feverish): Yes Chills: Yes Muscule Aches: Yes Runny Nose: Yes Sore Throat: Yes Cough (New or worsening chronic cough): Yes Shortness of breath: Yes Nausea or Vomiting: Yes Headache: Yes Abdominal Pain: Yes Diarrhea(3 or more loose stools in last 24 hours): Yes - Do you have any of the following Chronic lung disease: Asthma or emphysema or COPD: Yes Chronic Lung Disease Comment: copd Cystic Fibrosis: No Diabetes: Yes High Blood Pressure: Yes Cardiovascular Disease: Yes Chronic Kidney Disease: No Chronic Liver Disease: No Chronic blood disorder like Sickle Cell Disease: No Weak immune system due to disease or medication: No Neurologic condition that limits movement: No Developmental delay - Moderate to Severe: No Recent (within past 2 weeks) or current : No Morbid Obesity (>100 pounds over ideal weight): No - Objective Temperature: 96.5 F Pulse Rate: 77 Respiratory Rate: 20 Blood Pressure: 135/66 O2 Sat by Pulse Oximetry: 93 Objective: Given above, testing performed: If Testing Performed: Test Specimen Type Sent to General - General Information source: Patient Notes: Patient presents to the RTC for screening for the coronavirus. Patient reports fever chills body aches cough runny nose and shortness of breath. Patient also complains of headache abdominal pain with nausea vomiting and diarrhea. Patient reports symptoms since June of last year. Does have an underlying history of hypertension, diabetes and COPD. - Related Data Allergies/Adverse Reactions: Sulfa (Sulfonamide Antibiotics) Allergy (Unknown, Verified 03/22/19 07:23) metformin Allergy (Verified 03/22/19 07:23) Past Medical History - General Information source: Patient - Social History Smoking Status: Never Smoker Family History: Reviewed & Not Pertinent - Past Medical History Cardiac Medical History: Reports: Hx Hypertension - medicated Denies: Hx Coronary Artery Disease, Hx Heart Attack Pulmonary Medical History: Denies: Hx Asthma, Hx Bronchitis, Hx COPD, Hx Pneumonia Neurological Medical History: Reports: Other - Neuropathy. Denies: Hx Cerebrovascular Accident, Hx Seizures Endocrine Medical History: Reports: Hx Diabetes Mellitus Type 2 Renal/ Medical History: Denies: Hx Peritoneal Dialysis GI Medical History: Denies: Hx Hepatitis, Hx Hiatal Hernia, Hx Ulcer Musculoskeletal Medical History: Reports Hx Arthritis Infectious Medical History: Denies: Hx Hepatitis Past Surgical History: Reports: Hx Carotid Endarterectomy, Hx Tubal Ligation, Hx Vascular Surgery - right carotid "cleaned out" Physical Exam - Notes Notes: Full physical exam could not be performed due to covid 19 isolation protocols. Constitutional: Nontoxic appearance, no acute distress Eyes: Nonicteric, extraocular movements intact, sclera clear ENT: Posterior pharynx clear without exudates Cardiovascular: Heart rate and rhythm regular, no JVD Respiratory: Occasional cough, rhonchi that clears with cough nonlabored breathing, no use of accessory muscles, no tachypnea Gastrointestinal: Abdomen not distended Muculoskeletal: Moves all extremities well Skin: Normal color Neuro: Awake alert oriented, normal speech Psych: Normal mood and affect Diagnostic Results Laboratory Results: The patient was evaluated during the global Covid 19 pandemic, and that diagnosis was suspected/considered upon their initial presentation. Their evaluation, treatment and testing was consistent with current guidelines for patients who present with complaints or symptoms that may be related to Covid 19. Patient presents with upper respiratory symptoms worrisome for possible Covid 19. Patient does not have emergency worrying symptoms such as difficulty breathing, shortness of breath, chest pain, pressure, confusion or cyanosis. Patient appears suitable for discharge as vital signs are stable and patient is nontoxic in appearance. Patient good return precautions have been discussed with patient, patient verbalized understanding and is agreeable with discharge plan of care at this time. Patient Education/Counseling Counseling/Education: Patient was provided with discharge information including: As a person under investigation for Covid 19, the [facility], division of public health advises you to adhere to the following guidance until your test results are reported to you. If your test result is positive, you will receive additional information from your provider and your local health department at that time. Remain at home until you are cleared by the health provider or public health authorities. Keep a log of visitors to your home, notify any visitors to your home of your isolation status. If you plan to move to a new address or leave the county, notify the local health department in your County. Call your doctor or seek care if you have an urgent medical need. Before seeking medical care, call ahead to get instructions from the provider before arriving at the medical office clinic or hospital. Notify them that you are being tested for the virus that causes Covid 19 so that arrangements can be made, as necessary, to prevent transmission to others in the healthcare setting. Next, notify the local health department in your county. If a medical emergency arises and you need to call 911, inform the first responders that you are being tested for the virus that causes Covid 19. Next, notify the local health department in your county. RDC Discharge - Discharge Clinical Impression: Encounter for screening laboratory testing for COVID-19 virus Condition: Stable Disposition: Home; Selfcare
[2020-03-16 09:37] VITALS: BP 135/66
[2020-03-16 12:18] LABS: A TYPE INFLUENZA AG NEGATIVE (NEGATIVE); B INFLUENZA AG NEGATIVE (NEGATIVE)
== END ==
LOC: RDC 08:59
PROVIDERS: ATTEND Nurse Practitioner Family
DX: Z20.828 Contact with and (suspected) exposure to other viral communicable diseases (principal); R50.9 Fever, unspecified; R05 Cough; R06.02 Shortness of breath; M79.10 Myalgia, unspecified site; J02.9 Acute pharyngitis, unspecified; R09.89 Other specified symptoms and signs involving the circulatory and respiratory systems; R11.2 Nausea with vomiting, unspecified; R51 Headache; R10.9 Unspecified abdominal pain; R19.7 Diarrhea, unspecified; J44.9 Chronic obstructive pulmonary disease, unspecified; I10 Essential (primary) hypertension; E11.9 Type 2 diabetes mellitus without complications; Z88.2 Allergy status to sulfonamides; Z88.8 Allergy status to other drugs, medicaments and biological substances
CPT/HCPCS: 87070; 87880; 87804; U0003; G0463; C9803; 87635; 99201; 99211

== ENCOUNTER → 2020-03-24 | Outpatient (CLI) | payer MEDICARE, OTHER ==
[2020-03-24 08:55] LABS: ABSOLUTE EOSINOPHILS # (AUTO) 0.2 10^3/uL (0.0-0.6); ABSOLUTE MONOCYTES (AUTO) 0.7 10^3/uL (0.1-1.4); ABSOLUTE NEUT (AUTO) 4.6 10^3/uL (1.7-8.2); BASOPHILS % (AUTO) 0.5 % (0-2); HEMATOCRIT 48.2 % (36.0-47.0); HEMOGLOBIN 16.2 g/dL (12.0-15.5); LYMPHOCYTES % (AUTO) 26.9 % (13-45); MEAN CORPUSCULAR HEMOGLOBIN 28.3 pg (27.0-33.4); MEAN CORPUSCULAR HGB CONC 33.6 g/dL (32.0-36.0); MEAN CORPUSCULAR VOLUME 84 fl (80-97); MONOCYTES % (AUTO) 8.9 % (3-13); PLATELET COUNT 166 10^3/uL (150-450); RED BLOOD COUNT 5.72 10^6/uL (3.72-5.28); RED CELL DISTRIBUTION WIDTH 14.4 % (11.5-14.0); SEGMENTED NEUTROPHILS % (AUTO) 61.7 % (42-78); TOTAL CELLS COUNTED % (AUTO) 100 %; WHITE BLOOD COUNT 7.5 10^3/uL (4.0-10.5)
[2020-03-24 09:01] LABS: APPEARANCE,URINE CLEAR; BILIRUBIN,URINE NEGATIVE (NEGATIVE); COLOR,URINE STRAW; GLUCOSE, URINE NEGATIVE (NEGATIVE); KETONES,URINE NEGATIVE (NEGATIVE); LEUKOCYTE ESTERASE,URINE TRACE (NEGATIVE); NITRITE,URINE NEGATIVE (NEGATIVE); PROTEIN,URINE 100 mg/dL (NEGATIVE); URINE SPECIFIC GRAVITY 1.006; UROBILINOGEN,URINE NEGATIVE mg/dL (<2.0)
[2020-03-24 09:06] LABS: ADD MANUAL MICROSCOPIC YES
[2020-03-24 09:19] LABS: RBC,URINE NONE SEEN /HPF; WBC,URINE NONE SEEN /HPF
[2020-03-24 09:27] LABS: ALBUMIN 4.6 g/dL (3.5-5.0); ALKALINE PHOSPHATASE 108 U/L (38-126); ANION GAP 7 (5-19); ASPARTATE AMINO TRANSFERASE 21 U/L (14-36); BILIRUBIN,DIRECT 0.1 mg/dL (0.0-0.4); BILIRUBIN,TOTAL 0.9 mg/dL (0.2-1.3); BLOOD UREA NITROGEN 11 mg/dL (7-20); CALCIUM 9.8 mg/dL (8.4-10.2); CARBON DIOXIDE 30 mmol/L (22-30); CHLORIDE 102 mmol/L (98-107); CHOLESTEROL 240.22 mg/dL (0-200); GLUCOSE 115 mg/dL (75-110); POTASSIUM 4.2 mmol/L (3.6-5.0); TOTAL PROTEIN 7.6 g/dL (6.3-8.2); TRIGLYCERIDES 189 mg/dL (<150)
[2020-03-24 09:37] LABS: DIRECT LDL 153 mg/dL (<100)
[2020-03-24 09:41] LABS: VLDL CHOLESTEROL 37.8 mg/dL (10-31)
[2020-03-25 13:37] LABS: CREATININE URINE 46.6 mg/dL (Not Estab.); MICROALBUMIN URINE 259.1 ug/mL (Not Estab.)
== END ==
LOC: OD 07:36
PROVIDERS: ATTEND Family Medicine
DX: E55.9 Vitamin D deficiency, unspecified (principal); E11.40 Type 2 diabetes mellitus with diabetic neuropathy, unspecified; E78.5 Hyperlipidemia, unspecified; D75.1 Secondary polycythemia; Z85.51 Personal history of malignant neoplasm of bladder
CPT/HCPCS: 36415; 80053; 80061; 81001; 82043; 82306; 82570; 83036; 85025

== ENCOUNTER → 2020-08-10 | Outpatient (CLI) | payer MEDICARE ==
[2020-08-10 14:09] LABS: ANION GAP 12 (5-19); BLOOD UREA NITROGEN 19 mg/dL (7-20); CALCIUM 9.9 mg/dL (8.4-10.2); CARBON DIOXIDE 27 mmol/L (22-30); CHLORIDE 101 mmol/L (98-107); GLUCOSE 208 mg/dL (75-110); POTASSIUM 4.7 mmol/L (3.6-5.0)
== END ==
LOC: OD 12:30
PROVIDERS: ATTEND Internal Medicine Cardiovascular Disease
DX: I11.0 Hypertensive heart disease with heart failure (principal); I50.9 Heart failure, unspecified; R00.2 Palpitations
CPT/HCPCS: 36415; 80048; 83735; 83880; 84443

== ENCOUNTER 2020-09-20 17:26 | Inpatient (IN) | payer MEDICARE, OTHER ==
[2020-09-20] MEDS ORDERED: FUROSEMIDE INJ/PF 20 MG/2 ML SDV IV ONE (19:46)
[2020-09-20 20:10] LABS: ABSOLUTE LYMPHOCYTES (AUTO) 1.7 10^3/uL (0.5-4.7); ABSOLUTE MONOCYTES (AUTO) 0.6 10^3/uL (0.1-1.4); BASOPHILS % (AUTO) 0.5 % (0-2); EOSINOPHILS % (AUTO) 0.5 % (0-6); HEMATOCRIT 46.1 % (36.0-47.0); HEMOGLOBIN 14.9 g/dL (12.0-15.5); LYMPHOCYTES % (AUTO) 20.4 % (13-45); MEAN CORPUSCULAR HEMOGLOBIN 27.4 pg (27.0-33.4); MEAN CORPUSCULAR HGB CONC 32.3 g/dL (32.0-36.0); MEAN CORPUSCULAR VOLUME 85 fl (80-97); MONOCYTES % (AUTO) 7.1 % (3-13); PLATELET COUNT 186 10^3/uL (150-450); RED BLOOD COUNT 5.43 10^6/uL (3.72-5.28); RED CELL DISTRIBUTION WIDTH 15.6 % (11.5-14.0); SEGMENTED NEUTROPHILS % (AUTO) 71.5 % (42-78); TOTAL CELLS COUNTED % (AUTO) 100 %; WHITE BLOOD COUNT 8.4 10^3/uL (4.0-10.5)
[2020-09-20 20:32] LABS: NT PRO BNP 3930 pg/mL (<450)
[2020-09-20 20:33] LABS: TROPONIN I < 0.012 ng/mL
--- NOTE | 2020-09-20 20:57 | RADIOLOGY REPORT (SQ) ---
EXAM DESCRIPTION: CHEST 2 VIEWS CLINICAL HISTORY: 85 years Female, Dyspnea COMPARISON: Two views of the chest 06/04/2019 FINDINGS: Lungs: Prominence of the interstitial lung markings is again identified and unchanged. No focal consolidation. No pleural effusions or pneumothorax. Mediastinum: Cardiac and mediastinal silhouette are unchanged. There is vascular calcifications in the thoracic aorta. Bones: Appearance of the osseous structures are stable. There is endplate spondylosis in the mid thoracic spine. IMPRESSION: No acute process. No significant interval change.
--- NOTE | 2020-09-20 20:59 | RADIOLOGY REPORT (SQ) ---
EXAM DESCRIPTION: HIP RIGHT AP/LATERAL CLINICAL HISTORY: 85 years Female, Pain s/p fall COMPARISON: None. FINDINGS: Hips are located bilaterally. The pelvic ring is intact. Sacrum is not well seen secondary to overlying air in the colon. There is degenerative change in the lower spine. There is mild axial joint space narrowing in the right hip. No fracture is seen. Soft tissues are unremarkable. Vascular calcifications are present. IMPRESSION: Subtle degenerative change of the right hip. No fracture.
--- NOTE | 2020-09-20 21:00 | RADIOLOGY REPORT (SQ) ---
EXAM DESCRIPTION: KNEE RIGHT 4 VIEWS CLINICAL HISTORY: 85 years Female, Pain s/p fall COMPARISON: None. FINDINGS: Bone mineralization is diminished. Minimal narrowing of the lateral compartment. Several small ossific densities are seen adjacent to the lateral femoral condyle suggesting old trauma. No acute fracture. No effusion. Soft tissues are unremarkable. IMPRESSION: No acute process. Subtle degenerative change in the lateral compartment.
[2020-09-20 21:53] LABS: ALBUMIN 3.9 g/dL (3.5-5.0); ALKALINE PHOSPHATASE 117 U/L (38-126); ANION GAP 9 (5-19); ASPARTATE AMINO TRANSFERASE 28 U/L (14-36); BILIRUBIN,DIRECT 0.5 mg/dL (0.0-0.4); BLOOD UREA NITROGEN 18 mg/dL (7-20); CALCIUM 9.5 mg/dL (8.4-10.2); CARBON DIOXIDE 28 mmol/L (22-30); CHLORIDE 104 mmol/L (98-107); GLUCOSE 190 mg/dL (75-110); POTASSIUM 4.2 mmol/L (3.6-5.0); TOTAL PROTEIN 7.1 g/dL (6.3-8.2)
[2020-09-21] MEDS ORDERED: GLUCAGON,HUMAN RECOMB 1 MG INJ IM PRN (01:52)
[2020-09-21] MEDS ORDERED: DEXTROSE 40% GEL 15 GM TUBE PO PRN ×2 (01:52)
[2020-09-21] MEDS ORDERED: DEXTROSE 50%-WATER 25 GM/50 ML DISP.SYRIN IV PRN ×2 (01:52)
[2020-09-21] MEDS ORDERED: IPRATROPIUM/ALBUTEROL 0.5-2.5 MG/3 ML AMPUL NEB PRN (01:53)
--- NOTE | 2020-09-21 01:57 | PDOC H&P ---
History of Present Illness Admission Date/PCP: RAMILA ESCALONA MD Patient complains of: Shortness of breath, lower extremity weakness History of Present Illness: DAVIN HERNANDEZ is a 85 year old female with a history of hypertension, COPD, heart failure who was brought in by EMS after she was found lying in her kitchen floor. Per EMS report her oxygen saturation was 76% on room air when she was initially found. Currently patient is saturating mid 90s on 3 L of intranasal oxygen. She reports about 2 days back when she tried to go to the bathroom her legs gave up on her and has been having weakness of her lower extremities. Since the incident she has been able to regain strength on the left lower extremity but the right lower extremity has been weaker. She denies weakness in any of her upper extremity, facial droop, change in her speech, difficulty with swallowing, loss of consciousness. She also states that she has been missing her Lasix for the past week stating that it has been making her pee a lot and waking her up at night. She has been feeling more and more short of breath. She denies any nausea, vomiting, abdominal pain, or any change in her bowel or urinary habits. Past Medical History Cardiac Medical History: Reports: Congestive Heart Failure, Myocardial Infarction, Hyperlipidema, Hypertension - medicated Denies: Coronary Artery Disease Pulmonary Medical History: Reports: Chronic Obstructive Pulmonary Disease (COPD) Denies: Asthma, Bronchitis, Pneumonia Neurological Medical History: Denies: Seizures Endocrine Medical History: Reports: Diabetes Mellitus Type 2 GI Medical History: Denies: Hepatitis, Hiatal Hernia Musculoskeltal Medical History: Reports: Arthritis Hematology: Denies: Anemia, Sickle Cell Disease Past Surgical History Past Surgical History: Reports: Carotid Endarterectomy, Tubal Ligation, Vascular Surgery - right carotid "cleaned out" Denies: Amputation, Hysterectomy, Mastectomy, Pacemaker Social History Information Source: Patient Lives with: Family Smoking Status: Unknown if Ever Smoked Hx Recreational Drug Use: No Drugs: None - Advance Directive Resuscitation Status: Full Code Family History Family History: Reviewed & Not Pertinent Parental Family History Reviewed: Yes Children Family History Reviewed: Yes Sibling(s) Family History Reviewed.: Yes Medication/Allergy Home Medications: Albuterol Sulfate [Proair HFA Inhalation Aerosol 8.5 gm MDI] 2 puff IH Q4H PRN #1 mdi 03/22/19 Azithromycin [Zithromax 250 mg Tablet] 250 mg PO DAILY #4 tablet 03/22/19 Allergies/Adverse Reactions: Sulfa (Sulfonamide Antibiotics) Allergy (Unknown, Verified 09/20/20 19:36) metformin Allergy (Verified 09/20/20 19:36) Review of Systems Constitutional: ABSENT: chills, fever(s), headache(s), weight gain, weight loss Eyes: ABSENT: visual disturbances Ears: ABSENT: hearing changes Nose, Mouth, and Throat: ABSENT: headache(s), mouth pain, sore throat Cardiovascular: PRESENT: as per HPI Respiratory: PRESENT: as per HPI Gastrointestinal: ABSENT: abdominal pain, constipation, diarrhea, hematemesis, hematochezia, nausea, vomiting Neurological: ABSENT: abnormal gait, abnormal speech, confusion, dizziness, focal weakness, syncope Psychiatric: ABSENT: anxiety, depression, homidical ideation, suicidal ideation Endocrine: ABSENT: cold intolerance, heat intolerance, polydipsia, polyuria Hematologic/Lymphatic: ABSENT: easy bleeding, easy bruising Physical Exam Vital Signs: Temp Pulse Resp BP Pulse Ox 98.0 F 13 169/95 H 95 09/20/20 19:33 09/21/20 01:01 09/21/20 01:01 09/21/20 01:01 Intake & Output 09/19/20 09/20/20 09/21/20 06:59 06:59 06:59 Output Total 1150 Balance -1150 Weight 71.1 kg Additional comments: GENERAL APPEARANCE: Alert and oriented x3, in no acute distress HEENT: Normocephalic and atraumatic. No scleral icterus. Moist oral mucosa NECK: Supple. No lymphadenopathy or tenderness. No carotid bruit. No JVD CHEST: Symmetric. Nontender to palpation. LUNGS: Clear with good air entry bilaterally. No wheezing or crackles HEART: Regular rate and rhythm with normal S1 and S2. No murmurs, gallops, or rubs. ABDOMEN: Flat, soft, active bowel sounds, no direct or rebound tenderness. No organomegaly detected. EXTREMITIES: No cyanosis, clubbing, or edema. MUSCULOSKELETAL: No deformity, atrophy or swelling noted PSYCHIATRIC: Recent and remote memory is intact. Appropriate mood and affect. SKIN: Warm, dry, and well perfused. No lesions or rashes are noted. NEUROLOGIC: Cranial nerves II through XII are grossly intact Motor : power 5/5 in upper extremities and left lower extremity, 3/5 on right lower extremity Tone is normal, no muscle atrophy, no fasciculation Sensation to light touch intact symmetrically in upper and lower extremities Reflexes: +2 bilaterally symmetrically No clonus Results Laboratory Results: 09/20/20 17:52 09/20/20 17:52 09/20/20 09/20/20 17:52 17:52 WBC 8.4 RBC 5.43 H Hgb 14.9 Hct 46.1 MCV 85 MCH 27.4 MCHC 32.3 RDW 15.6 H Plt Count 186 Seg Neutrophils % 71.5 Sodium 141.0 Potassium 4.2 Chloride 104 Carbon Dioxide 28 Anion Gap 9 BUN 18 Creatinine 0.84 Est GFR ( Amer) > 60 Glucose 190 H Calcium 9.5 Total Bilirubin 1.0 AST 28 Alkaline Phosphatase 117 Total Protein 7.1 Albumin 3.9 09/20/20 17:52 Troponin I < 0.012 NT-Pro-B Natriuret Pep 3930 H Impressions: Chest X-Ray 09/20/20 19:45 IMPRESSION: No acute process. No significant interval change. Hip/Pelvis X-Ray 09/20/20 19:45 IMPRESSION: Subtle degenerative change of the right hip. No fracture. Knee X-Ray 09/20/20 19:45 IMPRESSION: No acute process. Subtle degenerative change in the lateral compartment. Assessment and Plan - Diagnosis (1) Acute on chronic respiratory failure with hypoxia Is this a current diagnosis for this admission?: Yes Plan: Patient was found saturating 76% on room air Likely due to mixture of heart failure and COPD exacerbation Chest x-ray shows signs of pulmonary vascular congestion with cardiomegaly BNP was elevated at 3930 Currently saturating mid 90s on 4 L intranasal oxygen Closely monitor respiratory parameters Lasix 40 mg IV twice daily Breathing treatments with DuoNebs, prednisone and oral Levaquin Strict I&O of, daily weights and fluid restriction (2) Congestive heart failure Qualifiers: Heart failure type: unspecified Heart failure chronicity: acute on chronic Qualified Code(s): I50.9 - Heart failure, unspecified Is this a current diagnosis for this admission?: Yes Plan: Presents with shortness of breath Likely precipitated by medication noncompliance Chest x-ray show cardiomegaly with signs of pulmonary edema Has elevated BNP 3930 Ordered echocardiogram Lasix 40 IV twice daily Strict I&O's, daily weights and fluid restriction On telemetry monitoring (3) COPD exacerbation Is this a current diagnosis for this admission?: Yes Plan: Continue breathing treatment with DuoNeb's Currently on prednisone 40 mg p.o. daily Intranasal oxygen and titrate for saturation between 88 and 92% Continue Levaquin 750 p.o. daily Continue closely monitoring respiratory monitors (4) Right leg weakness Is this a current diagnosis for this admission?: Yes Plan: Patient has right lower extremity weakness CT head without contrast was negative for acute change Ordered MRI head, carotid Doppler and echocardiogram On telemetry Neuro check, fall precaution, swallow eval Aspirin and atorvastatin started PT/OT consult placed (5) Hypertension Is this a current diagnosis for this admission?: Yes Plan: Continue home medications - Time Time Spent with patient: 35 or more minutes Total Critical Time (Minutes): 45 Medications reviewed and adjusted accordingly: Yes Anticipated Discharge Disposition: Home, Self Care Anticipated Discharge Timeframe: within 72 hours - Inpatient Certification Based on my medical assessment, after consideration of the patient's comorbidities, presenting symptoms, or acuity I expect that the services needed warrant INPATIENT care.: Yes I certify that my determination is in accordance with my understanding of Medicare's requirements for reasonable and necessary INPATIENT services [42 CFR 412.3e].: Yes Medical Necessity: Significant Comorbidiites Make Outpatient Treatment Too Risky, Need Close Monitoring Due to Risk of Patient Decompensation, Need For Continuous Telemetry Monitoring, Risk of Complication if Not Cared For in Hospital Post Hospital Care: D/C or Transfer Summary
--- NOTE | 2020-09-21 02:36 | ER Document Report ---
ED General - General Chief Complaint: Shortness Of Breath Stated Complaint: SHORTNESS OF BREATH Time Seen by Provider: 09/20/20 19:12 Primary Care Provider: RAMILA ESCALONA MD [Primary Care Provider] - Follow up as needed Mode of Arrival: Medic Information source: Patient TRAVEL OUTSIDE OF THE [place] IN LAST 30 DAYS: No - HPI Notes: Patient complains of shortness of breath it has been going on for several days. She is a somewhat poor historian. She says that she does not have lung disease, but the nursing staff reports that EMS said that she has an oxygen set up at home but does not use it. She also evidently has furosemide prescribed but does not take it because it makes her urinate more frequently. According to nursing staff and EMS the patient was found on her kitchen floor with an O2 sat of 76% when EMS arrived. To me, the patient indicated that she fell onto her right knee and that her knee was painful and would not hold her up. She described her complaint in her leg is more related to the pain and less so the weakness. She does mention some giving way of the knee but it sounded more like an orthopedic issue the way the patient was describing it to me. It is unclear how much support the patient gets at home from her family. - Related Data Allergies/Adverse Reactions: Sulfa (Sulfonamide Antibiotics) Allergy (Unknown, Verified 09/20/20 19:36) metformin Allergy (Verified 09/20/20 19:36) Home Medications: Gabapentin. Glimepiride. Omeprazole. Dicyclomine. Nitrogymcerin. Pantoprazole. Metoprolol. ProAir inhaler. cefuroxime. Cetirizine. Ventolin. Anoro Ellipta. Telmisartan-amlodipine. Lantus. albuterol Past Medical History - General Information source: Patient - Social History Smoking Status: Unknown if Ever Smoked Family History: Reviewed & Not Pertinent - Medical History Medical History: Other Notes: Past medical history as documented in the EHR is reviewed. - Past Medical History Cardiac Medical History: Reports: Hx Congestive Heart Failure, Hx Heart Attack, Hx Hypercholesterolemia, Hx Hypertension - medicated Denies: Hx Coronary Artery Disease Pulmonary Medical History: Reports: Hx COPD Denies: Hx Asthma, Hx Bronchitis, Hx Pneumonia Neurological Medical History: Denies: Hx Cerebrovascular Accident, Hx Seizures Endocrine Medical History: Reports: Hx Diabetes Mellitus Type 2 Renal/ Medical History: Denies: Hx Peritoneal Dialysis GI Medical History: Denies: Hx Hepatitis, Hx Hiatal Hernia, Hx Ulcer Musculoskeletal Medical History: Reports Hx Arthritis Infectious Medical History: Denies: Hx Hepatitis Past Surgical History: Reports: Hx Carotid Endarterectomy, Hx Tubal Ligation, Hx Vascular Surgery - right carotid "cleaned out". Denies: Hx Hysterectomy, Hx Mastectomy, Hx Open Heart Surgery, Hx Pacemaker - Immunizations Hx Diphtheria, Pertussis, Tetanus Vaccination: Yes Review of Systems - Review of Systems Notes: All other systems were reviewed and are negative or noncontributory except as noted in the present illness. Physical Exam - Vital signs Vitals: Resp Pulse Ox 16 94 09/20/20 17:44 09/20/20 17:44 - Notes Notes: General: Pleasant elderly somewhat chronically ill-appearing female in no acute distress. Vital signs and nursing documentation are reviewed. Neck: Supple no obvious JVD. Chest: Fair air entry bilaterally. Few bibasilar rales. No rhonchi or wheezes. Heart: Regular rate and rhythm no murmur rub or gallop. Distant heart tones are present. Abdomen: Obese soft nontender no masses organomegaly. Extremities: Trace to 1+ edema at the ankles bilaterally. Patient has no right hip tenderness to palpation no pain with internal or external rotation but some tenderness to palpation of the right knee. Neuro: No focal abnormalities noted. Course - Re-evaluation Re-evalutation: 09/21/20 02:36 Patient was given furosemide IV. She was placed on oxygen. Her condition gradually improved somewhat. Her labs indicated some degree of congestive heart failure. Her chest x-ray certainly did not suggest florid pulmonary edema. Her skeletal x-rays show degenerative change of her hip and knee but no obvious fracture or dislocation. I contacted the hospitalist on duty and he agreed to admit the patient to the hospital for further evaluation and treatment. - Vital Signs Vital signs: Temp Pulse Resp BP Pulse Ox 98.0 F 13 169/95 H 95 09/20/20 19:33 09/21/20 01:01 09/21/20 01:01 09/21/20 01:01 - Laboratory Result Diagrams: 09/20/20 17:52 09/20/20 17:52 Laboratory results interpreted by me: 09/20/20 09/20/20 09/20/20 17:52 17:52 17:52 RBC 5.43 H RDW 15.6 H Glucose 190 H Direct Bilirubin 0.5 H NT-Pro-B Natriuret Pep 3930 H 09/21/20 02:35 Labs- Entire Visit 09/20/20 09/20/20 09/20/20 17:52 17:52 17:52 WBC 8.4 RBC 5.43 H Hgb 14.9 Hct 46.1 MCV 85 MCH 27.4 MCHC 32.3 RDW 15.6 H Plt Count 186 Lymph % (Auto) 20.4 Butts % (Auto) 7.1 Eos % (Auto) 0.5 Baso % (Auto) 0.5 Absolute Neuts (auto) 6.0 Absolute Lymphs (auto) 1.7 Absolute Monos (auto) 0.6 Absolute Eos (auto) 0.0 Absolute Basos (auto) 0.0 Seg Neutrophils % 71.5 Sodium 141.0 Potassium 4.2 Chloride 104 Carbon Dioxide 28 Anion Gap 9 BUN 18 Creatinine 0.84 Est GFR ( Amer) > 60 Est GFR (MDRD) Non-Af > 60 Glucose 190 H Calcium 9.5 Total Bilirubin 1.0 Direct Bilirubin 0.5 H Neonat Total Bilirubin Not Reportable Neonat Direct Bilirubin Not Reportable Neonat Indirect Bili Not Reportable AST 28 ALT 14 Alkaline Phosphatase 117 Troponin I < 0.012 NT-Pro-B Natriuret Pep 3930 H Total Protein 7.1 Albumin 3.9 - Diagnostic Test Radiology reviewed: Image reviewed, Reports reviewed Radiology results interpreted by me: 09/21/20 02:35 Chest X-Ray 09/20/20 19:45 IMPRESSION: No acute process. No significant interval change. Hip/Pelvis X-Ray 09/20/20 19:45 IMPRESSION: Subtle degenerative change of the right hip. No fracture. Knee X-Ray 09/20/20 19:45 IMPRESSION: No acute process. Subtle degenerative change in the lateral compartment. - EKG Interpretation by Me EKG shows normal: Sinus rhythm Rate: Normal Rhythm: NSR Discharge - Discharge Clinical Impression: Right leg weakness Congestive heart failure Qualifiers: Heart failure type: unspecified Heart failure chronicity: acute on chronic Qualified Code(s): I50.9 - Heart failure, unspecified Acute and chronic respiratory failure Qualifiers: Respiratory failure complication: unspecified whether with hypoxia or hypercapnia Qualified Code(s): J96.20 - Acute and chronic respiratory failure, unspecified whether with hypoxia or hypercapnia Condition: Fair Disposition: ADMITTED INPATIENT Admitting Provider: [facility] Unit Admitted: Telemetry Referrals: RAMILA ESCALONA MD [Primary Care Provider] - Follow up as needed
--- NOTE | 2020-09-21 03:48 | RADIOLOGY REPORT (SQ) ---
EXAM DESCRIPTION: CT HEAD WITHOUT IV CONTRAST COMPLETED DATE/TME: 09/21/2020 03:26 CLINICAL HISTORY: R leg weakness x 2 days COMPARISON: 12/09/2019 TECHNIQUE: Axial CT of the head obtained from the skull apex to the skull base without contrast. FINDINGS: No acute intracranial hemorrhage identified. No mass, mass effect, shift of the midline, abnormal extra-axial fluid collection or CT evidence of acute ischemic change identified. The ventricular system and sulcal spaces are mildly enlarged compatible with mild cerebral atrophy. Confluent areas of hypodensity throughout the supratentorial white matter are nonspecific and may be related to chronic small vessel ischemic change. The visualized paranasal sinuses and mastoid air cells are well aerated. No skull fracture identified. Visualized orbits and globes are unremarkable. Atherosclerotic calcification of the intracranial internal carotid arteries. IMPRESSION: 1. No acute intracranial abnormality by CT criteria. This exam was performed according to our departmental dose-optimization program, which includes automated exposure control, adjustment of the mA and/or kV according to patient size and/or use of iterative reconstruction technique.
[2020-09-21 04:07] LABS: APPEARANCE,URINE SLIGHTLY-CLOUDY; BILIRUBIN,URINE NEGATIVE (NEGATIVE); COLOR,URINE YELLOW; GLUCOSE, URINE 50 mg/dL (NEGATIVE); KETONES,URINE NEGATIVE (NEGATIVE); PROTEIN,URINE 100 mg/dL (NEGATIVE); URINE SPECIFIC GRAVITY 1.012; UROBILINOGEN,URINE NEGATIVE mg/dL (<2.0)
[2020-09-21] MEDS: ACETAMINOPHEN 325 MG TABLET PO PRN ×3 (05:07→21:30)
[2020-09-21 06:59] LABS: ANION GAP 13 (5-19); BLOOD UREA NITROGEN 16 mg/dL (7-20); CALCIUM 9.1 mg/dL (8.4-10.2); CARBON DIOXIDE 25 mmol/L (22-30); CHLORIDE 102 mmol/L (98-107); GLUCOSE 223 mg/dL (75-110); POTASSIUM 3.7 mmol/L (3.6-5.0)
[2020-09-21] MEDS: INSULIN REG, HUMAN 100 UNIT/ML 3 ML VIAL (PYX) SUBCUT SCH ×4 (08:04→22:34)
[2020-09-21] MEDS: ONDANSETRON HCL INJ/PF 4 MG/2 ML SDV IV PRN (08:15)
[2020-09-21] MEDS ORDERED: FUROSEMIDE INJ/PF 40 MG/4 ML SDV IV SCH (10:00)
[2020-09-21] MEDS ORDERED: FAMOTIDINE 20 MG TABLET PO SCH (10:00)
--- NOTE | 2020-09-21 10:01 | RADIOLOGY REPORT (SQ) ---
EXAM DESCRIPTION: MRI HEAD WITHOUT IMAGES COMPLETED DATE/TIME: 09/21/2020 9:16 am REASON FOR STUDY: CVA COMPARISON: CT dated 09/21/2020. MR dated 12/09/2019. TECHNIQUE: Multiplanar imaging includes non-contrasted T1, T2, FLAIR, and diffusion with ADC map seq uences. Images stored on PACS. LIMITATIONS: None. FINDINGS: ANATOMY: No anomalies. Normal vascular flow voids. Pituitary fossa normal. CSF SPACES: Atrophy induced prominence of ventricles and CSF spaces. CEREBRUM: High signal intensity lesions scattered throughout the white matter on FLAIR imaging with d istribution suggesting micro-vascular ischemic changes. No evidence of hemorrhage, mass, or extraaxi al fluid collection. POSTERIOR FOSSA: No signal alteration. No hemorrhage. No edema, masses or mass effect. Internal cici tory canals, cerebello-pontine angles, mastoids normal. DIFFUSION IMAGING: There are small focal areas of restricted diffusion in the subcortical white matte r of the right frontal lobe (axial image 21) and in the superior left frontal lobe (axial images 23- 26). ORBITS: No masses. Globes normal. PARANASAL SINUSES: No fluid levels. Mucosa normal. OTHER: No other significant finding. IMPRESSION: 1. SMALL FOCAL AREAS OF RESTRICTED DIFFUSION IN THE RIGHT FRONTAL LOBE AND SUPERIOR LEFT FRONTAL LOBE CONSISTENT WITH ACUTE LACUNAR INFARCTS. 2. ATROPHY AND CHRONIC MICRO-VASCULAR ISCHEMIC CHANGES. EVIDENCE OF ACUTE STROKE: YES. RIGHT MCA AND LEFT UMA. COMMENT: The findings were sent to the Radiology Results Communication Center at 09:54 on 09/21/2020 to be communicated to a licensed caregiver. TECHNICAL DOCUMENTATION: JOB ID: [id number] 2010 [employer]- All Rights Reserved Reading location - IP/workstation name: [email or web address]
[2020-09-21] MEDS: PREDNISONE 20 MG TABLET PO SCH (10:02)
[2020-09-21] MEDS: ENOXAPARIN SODIUM INJ 40 MG/0.4 ML DISP.SYRIN SUBCUT SCH (10:02)
[2020-09-21] MEDS: ASPIRIN 81 MG TABLET, CHEWABLE PO SCH (10:02)
--- NOTE | 2020-09-21 13:35 | PDOC PROGRESS REPORT ---
Subjective Date:: 09/21/20 Subjective:: The patient's son had many questions tested the patient. She reports feeling slightly better. Reason For Visit: CONGESTIVE HEART FAILURE,ACUTE AND CHRONIC Physical Exam Vital Signs: Temp Pulse Resp BP Pulse Ox 98.1 F 89 18 150/70 H 96 09/21/20 08:54 09/21/20 07:00 09/21/20 04:42 09/21/20 06:11 09/21/20 04:42 Intake & Output 09/20/20 09/21/20 09/22/20 06:59 06:59 06:59 Intake Total 250 480 Output Total 1450 Balance -1200 480 Weight 66.3 kg General appearance: PRESENT: cooperative, well-developed Head exam: PRESENT: atraumatic, normocephalic Respiratory exam: PRESENT: rales - Bilateral bases, symmetrical, unlabored. ABSENT: rhonchi, tachypnea, wheezes Cardiovascular exam: PRESENT: RRR, +S1, +S2, systolic murmur - 2/6. ABSENT: br adycardia, diastolic murmur, irregular rhythm GI/Abdominal exam: PRESENT: normal bowel sounds, soft. ABSENT: distended, guarding, tenderness Rectal exam: PRESENT: deferred Gentrourinary exam: ABSENT: indwelling catheter Extremities exam: ABSENT: pedal edema Neurological exam: PRESENT: alert, awake, oriented to person, oriented to place, oriented to time, oriented to situation, CN II-XII grossly intact, motor sensory deficit - Peripheral neuropathy from diabetes. ABSENT: altered Psychiatric exam: PRESENT: anxious - Anxious regarding hospitalization and medication regimen. ABSENT: agitated Focused psych exam: ABSENT: delusional, paranoid, restlessness Results Laboratory Results: 09/20/20 17:52 09/21/20 06:32 09/20/20 09/20/20 09/20/20 17:52 17:52 20:35 WBC 8.4 RBC 5.43 H Hgb 14.9 Hct 46.1 MCV 85 MCH 27.4 MCHC 32.3 RDW 15.6 H Plt Count 186 Seg Neutrophils % 71.5 Sodium 141.0 Potassium 4.2 Chloride 104 Carbon Dioxide 28 Anion Gap 9 BUN 18 Creatinine 0.84 Est GFR ( Amer) > 60 Glucose 190 H Calcium 9.5 Total Bilirubin 1.0 AST 28 Alkaline Phosphatase 117 Total Protein 7.1 Albumin 3.9 Urine Color YELLOW Urine Appearance SLIGHTLY-CLOUDY Urine pH 6.0 Ur Specific [place] 1.012 Urine Protein 100 H Urine Glucose (UA) 50 H Urine Ketones NEGATIVE Urine Blood NEGATIVE Urine RBC (Auto) 1 09/21/20 06:32 WBC RBC Hgb Hct MCV MCH MCHC RDW Plt Count Seg Neutrophils % Sodium 139.9 Potassium 3.7 Chloride 102 Carbon Dioxide 25 Anion Gap 13 BUN 16 Creatinine 0.70 Est GFR ( Amer) > 60 Glucose 223 H Calcium 9.1 Total Bilirubin AST Alkaline Phosphatase Total Protein Albumin Urine Color Urine Appearance Urine pH Ur Specific [place] Urine Protein Urine Glucose (UA) Urine Ketones Urine Blood Urine RBC (Auto) 09/20/20 17:52 Troponin I < 0.012 NT-Pro-B Natriuret Pep 3930 H Impressions: Chest X-Ray 09/20/20 19:45 IMPRESSION: No acute process. No significant interval change. Hip/Pelvis X-Ray 09/20/20 19:45 IMPRESSION: Subtle degenerative change of the right hip. No fracture. Knee X-Ray 09/20/20 19:45 IMPRESSION: No acute process. Subtle degenerative change in the lateral compartment. Head MRI 09/21/20 00:00 IMPRESSION: 1. SMALL FOCAL AREAS OF RESTRICTED DIFFUSION IN THE RIGHT FRONTAL LOBE AND SUPERIOR LEFT FRONTAL LOBE CONSISTENT WITH ACUTE LACUNAR INFARCTS. 2. ATROPHY AND CHRONIC MICRO-VASCULAR ISCHEMIC CHANGES. EVIDENCE OF ACUTE STROKE: YES. RIGHT MCA AND LEFT UMA. Head CT 09/21/20 00:26 IMPRESSION: 1. No acute intracranial abnormality by CT criteria. This exam was performed according to our departmental dose-optimization program, which includes automated exposure control, adjustment of the mA and/or kV according to patient size and/or use of iterative reconstruction technique. Assessment and Plan - Diagnosis (1) Acute on chronic respiratory failure with hypoxia Is this a current diagnosis for this admission?: Yes (2) Acute diastolic heart failure Is this a current diagnosis for this admission?: Yes (3) COPD exacerbation Is this a current diagnosis for this admission?: Yes (4) Acute lacunar infarction Is this a current diagnosis for this admission?: Yes (5) Hypertension Is this a current diagnosis for this admission?: Yes (6) Right leg weakness Is this a current diagnosis for this admission?: Yes - Plan Summary Summary: 09/21/2020 I spent approximately 30 minutes with the patient and her son. The majority of it was regarding her current illnesses Echocardiogram revealed an acute diastolic heart failure-we will adjust medication regimen accordingly She has a history of a carotid endarterectomy or atherectomy. I explained the use of statin therapy. The patient states she had diarrhea with statin therapy but I think she confuse this with a history of using Metformin. We will need aspirin, statin therapy, good control of blood pressure and diabetes. She thinks telmisartan caused her stroke. She is currently on losartan. They asked about Entresto but her ejection fraction is well above the threshold. Physical therapy did work with her. She is a week but her goal is home with home health and therapy. She did cough when she took a drink and I will ask speech therapy to see her. - Time Time Spent with patient: 25-34 minutes Medications reviewed and adjusted accordingly: Yes Anticipated Discharge Disposition: Home with Home Health Anticipated Discharge Timeframe: within 72 hours
--- NOTE | 2020-09-21 15:53 | RADIOLOGY REPORT (SQ) ---
EXAM DESCRIPTION: CAROTID DOPPLER IMAGES COMPLETED DATE/TIME: 09/21/2020 3:31 pm REASON FOR STUDY: Right lower extremity weakness, POSSIBLE CVA COMPARISON: 03/16/2011. TECHNIQUE: Grayscale ultrasound, Doppler velocity and spectra, and color Doppler images acquired of the extra-cranial carotid and vertebral arteries. Images stored on PACS. LIMITATIONS: None. FINDINGS: RIGHT CAROTID CCA Velocities: Within normal limits. ICA Velocities Peak systolic 0.71 m/s. End diastolic 0.19 m/s. Proximal ICA/CCA peak systolic ratio 1.2. Soft plaque. LEFT CAROTID CCA Velocities: Within normal limits. ICA Velocities Peak systolic 0.97 m/s. End diastolic 0.25 m/s. Proximal ICA/CCA peak systolic ratio 1.2. Soft plaque. VERTEBRAL ARTERIES: Antegrade flow. Normal waveforms. SUBCLAVIAN ARTERIES: No finding. OTHER: No other significant finding. IMPRESSION: NO HEMODYNAMICALLY SIGNIFICANT STENOSIS. COMMENT: Quality ID #[id number]: Velocity criteria are extrapolated from the diameter data as defined by t he Society of Radiologists in Ultrasound Consensus Conference. Radiology 2003: 229; 340-346. TECHNICAL DOCUMENTATION: JOB ID: [id number] 2010 [employer]- All Rights Reserved Reading location - IP/workstation name: [email or web address]
--- NOTE | 2020-09-21 16:20 | XCELERA REPORT ---
[address] [address] Transthoracic Echocardiogram Report Name: DAVIN HERNANDEZ Age: 85 yrs Gender: Female : 1935 [facility] Date: 09/21/2020 10:47 AM Height: 64 in Weight: 146 lb BSA: 1.7 m2 Procedure: A complete two-dimensional transthoracic echocardiogram was performed (2D, M-mode, spectral and color flow Doppler). The study was technically adequate with some images being suboptimal in quality. Reason For Study: heart failure, possible CVA Ordering Physician: SEGUNDO AHMADI Performed By: Afua Hope Interpretation Summary LEFT VENTRICLE: LV Systolic function: LVEF is felt to be within normal limits. Best estimate is approximately LVEF is 60 to 65%. LV Diastolic Function: Grade II diastolic dysfunction noted. Wall motion: No definite regional wall motion abnormalities are noted. Left ventricular chamber size: is within normal limit. Left ventricular wall thickness: is increased indicative of Mild LVH. RIGHT VENTRICLE: RV systolic function: moderately depressed. Right Ventricle Size: moderate to severely dilated. LEFT ATRIUM size: WNL. RIGHT ATRIUM size: moderately dilated. INTER ATRIAL SEPTUM: No definite atrial septal defect noted however a small PFO could be missed. AORTIC ROOT: seems to be within normal limits. ASCENDING AORTA: is not well visualized. INFERIOR VENA CAVA: was not well visualized. VALVES: MITRAL VALVE: Leaflets are mildly thickened. Mobility seems to be within normal limits. Mitral Regurgitation: trace to mild mitral regurgitation is noted. Mitral Stenosis: No mitral stenosis noted. Mitral valve prolapse: none noted. AORTIC VALVE: seems to be trileaflet with mild thickening but adequate excursion. Aortic stenosis: No aortic stenosis noted. Aortic regurgitation: No aortic incompetence noted. TRICUSPID VALVE: mobility and structures within normal limit. Tricuspid stenosis: no tricuspid stenosis noted. Tricuspid regurgitation: moderate to severe tricuspid regurgitation noted. Estimated RVSP: approximately 60 to 70 mmHg consistent with severe pulmonary hypertension. PULMONARY VALVE: was not well visualized but no significant abnormalities suspected. Pulmonary stenosis: no pulmonary stenosis noted. Pulmonary regurgitation: no significant pulmonary regurgitation noted. MASSES AND THROMBUS: No definite intracardiac thrombus or masses are noted. PERICARDIUM: minimal pericardial effusion was noted. IMPRESSION: 1. Normal LVEF. RV moderately dilated with moderate RV systolic dysfunction noted. 2. Mild LVH noted. RVH noted. Severe pulmonary hypertension noted. 3. Grade II [mild] Diastolic Dysfunction noted. 4. Moderate to severe tricuspid, trace to mild mitral regurgitation noted. MMode/2D Measurements & Calculations RVDd: 3.0 cm LVIDd: 3.9 cm FS: 35.3 % Ao root diam: 2.7 cm IVSd: 1.2 cm LVIDs: 2.5 cm EDV(Teich): 66.9 ml Ao root area: 5.8 cm2 LVPWd: 1.1 cm ESV(Teich): 23.2 ml EF(Teich): 65.3 % Doppler Measurements & Calculations MV E max arlyn: MV dec slope: Ao V2 max: LV V1 max P.6 cm/sec 486.8 cm/sec2 167.3 cm/sec 2.2 mmHg MV A max arlyn: MV dec time: Ao max PG: LV V1 max: 117.7 cm/sec 0.16 sec 11.2 mmHg 74.5 cm/sec MV E/A: 0.68 MR max arlyn: PA V2 max: PI end-d arlyn: TR max arlyn: 380.4 cm/sec 67.1 cm/sec 176.5 cm/sec 378.1 cm/sec MR max PG: PA max P.8 mmHg TR max P.9 mmHg 58.3 mmHg : SEGUNDO AHMADI Shyamal
[2020-09-21] MEDS ORDERED: INSULIN GLARGINE,HUM.REC.ANLOG 1,000 UNIT/10 ML VIAL SUBCUT SCH (22:00)
[2020-09-21] MEDS ORDERED: ATORVASTATIN CALCIUM 40 MG TABLET PO SCH (22:00)
[2020-09-21] MEDS: GABAPENTIN 100 MG CAPSULE PO SCH (22:34)
[2020-09-21] MEDS: AMLODIPINE BESYLATE 10 MG TABLET PO SCH (22:35)
[2020-09-21] MEDS: ATORVASTATIN CALCIUM 80 MG TABLET PO SCH (22:35)
[2020-09-22] MEDS: ACETAMINOPHEN 325 MG TABLET PO PRN (06:41)
--- NOTE | 2020-09-22 07:02 | PDOC PROGRESS REPORT ---
Subjective Date:: 09/22/20 Subjective:: The patient just finished her lunch. She appears comfortable on oxygen. She is not tachypneic. Reason For Visit: CONGESTIVE HEART FAILURE,ACUTE AND CHRONIC Physical Exam Vital Signs: Temp Pulse Resp BP Pulse Ox 97.3 F 76 18 113/61 91 L 09/22/20 03:53 09/22/20 03:53 09/22/20 03:53 09/22/20 03:53 09/22/20 03:53 Intake & Output 09/21/20 09/22/20 09/23/20 06:59 06:59 06:59 Intake Total 250 750 Output Total 1450 1100 Balance -1200 -350 Weight 66.3 kg 69.1 kg General appearance: PRESENT: no acute distress, cooperative, well-developed Head exam: PRESENT: atraumatic, normocephalic Ear exam: PRESENT: normal external ear exam. ABSENT: bleeding, drainage Mouth exam: PRESENT: moist, tongue midline Respiratory exam: PRESENT: rales - Fine rales at bases, symmetrical, unlabored. ABSENT: rhonchi, tachypnea, wheezes Cardiovascular exam: PRESENT: RRR, +S1, +S2, systolic murmur - 3/6 GI/Abdominal exam: PRESENT: normal bowel sounds, soft. ABSENT: tenderness Rectal exam: PRESENT: deferred Musculoskeletal exam: ABSENT: ambulatory - See physical therapy note. Still with marked right leg weakness Neurological exam: PRESENT: alert, awake, oriented to person, oriented to place, oriented to time, oriented to situation, CN II-XII grossly intact. ABSENT: altered Psychiatric exam: PRESENT: appropriate affect. ABSENT: agitated, anxious Focused psych exam: ABSENT: delusional, paranoid, restlessness Results Laboratory Results: 09/20/20 17:52 09/21/20 06:32 09/21/20 06:32 Sodium 139.9 Potassium 3.7 Chloride 102 Carbon Dioxide 25 Anion Gap 13 BUN 16 Creatinine 0.70 Est GFR ( Amer) > 60 Glucose 223 H Calcium 9.1 09/20/20 17:52 Troponin I < 0.012 NT-Pro-B Natriuret Pep 3930 H Impressions: Chest X-Ray 09/20/20 19:45 IMPRESSION: No acute process. No significant interval change. Hip/Pelvis X-Ray 09/20/20 19:45 IMPRESSION: Subtle degenerative change of the right hip. No fracture. Knee X-Ray 09/20/20 19:45 IMPRESSION: No acute process. Subtle degenerative change in the lateral compartment. Carotid Doppler Study 09/21/20 00:00 IMPRESSION: NO HEMODYNAMICALLY SIGNIFICANT STENOSIS. Head MRI 09/21/20 00:00 IMPRESSION: 1. SMALL FOCAL AREAS OF RESTRICTED DIFFUSION IN THE RIGHT FRONTAL LOBE AND SUPERIOR LEFT FRONTAL LOBE CONSISTENT WITH ACUTE LACUNAR INFARCTS. 2. ATROPHY AND CHRONIC MICRO-VASCULAR ISCHEMIC CHANGES. EVIDENCE OF ACUTE STROKE: YES. RIGHT MCA AND LEFT UMA. Head CT 09/21/20 00:26 IMPRESSION: 1. No acute intracranial abnormality by CT criteria. This exam was performed according to our departmental dose-optimization program, which includes automated exposure control, adjustment of the mA and/or kV according to patient size and/or use of iterative reconstruction technique. Assessment and Plan - Diagnosis (1) Acute on chronic respiratory failure with hypoxia Is this a current diagnosis for this admission?: Yes (2) COPD exacerbation Is this a current diagnosis for this admission?: Yes (3) Acute on chronic diastolic heart failure Is this a current diagnosis for this admission?: Yes (4) Acute lacunar infarction Is this a current diagnosis for this admission?: Yes (5) Hypertension Is this a current diagnosis for this admission?: Yes (6) Right leg weakness Is this a current diagnosis for this admission?: Yes (7) Severe pulmonary arterial systolic hypertension Is this a current diagnosis for this admission?: Yes (8) Tricuspid regurgitation Qualifiers: Cardiac valve disease etiology: etiology unspecified Qualified Code(s): I07.1 - Rheumatic tricuspid insufficiency Is this a current diagnosis for this admission?: Yes - Plan Summary Summary: 09/21/2020 I spent approximately 30 minutes with the patient and her son. The majority of it was regarding her current illnesses Echocardiogram revealed an acute diastolic heart failure-we will adjust medication regimen accordingly She has a history of a carotid endarterectomy or atherectomy. I explained the use of statin therapy. The patient states she had diarrhea with statin therapy but I think she confuse this with a history of using Metformin. We will need aspirin, statin therapy, good control of blood pressure and diabetes. She thinks telmisartan caused her stroke. She is currently on losartan. They asked about Entresto but her ejection fraction is well above the threshold. Physical therapy did work with her. She is a week but her goal is home with home health and therapy. She did cough when she took a drink and I will ask speech therapy to see her. 09/22/2020 Acute ischemic bilateral lacunar infarct-by the time the patient presented to the emergency department she was outside of the window for TPA and even if stroke alert was called in the emergency department she still would have been outside the window. She continues to work with physical therapy. Due to the significant weakness in the right leg short-term rehab is suggested. Heart failure is actually acute on chronic diastolic. There is also severe pulmonary hypertension with tricuspid regurgitation. Cardiology will see the patient tomorrow. We discussed the possibility of going to a pulmonary hypertension specialty clinic unfortunately they are not local. One is in [place] and there are 1 or 2 in the [facility] area. Accu-Cheks are still higher than desired. I will increase the Lantus. Speech therapy did evaluate the patient and there is no evidence of dysphagia. - Time Time Spent with patient: 15-24 minutes Medications reviewed and adjusted accordingly: Yes Anticipated Discharge Disposition: Assisted Facility Anticipated Discharge Timeframe: within 48 hours
[2020-09-22 07:14] LABS: HEMATOCRIT 47.6 % (36.0-47.0); HEMOGLOBIN 15.5 g/dL (12.0-15.5); MEAN CORPUSCULAR HEMOGLOBIN 27.6 pg (27.0-33.4); MEAN CORPUSCULAR HGB CONC 32.5 g/dL (32.0-36.0); MEAN CORPUSCULAR VOLUME 85 fl (80-97); PLATELET COUNT 185 10^3/uL (150-450); RED CELL DISTRIBUTION WIDTH 15.3 % (11.5-14.0); WHITE BLOOD COUNT 10.8 10^3/uL (4.0-10.5)
[2020-09-22 07:49] LABS: ANION GAP 5 (5-19); BLOOD UREA NITROGEN 25 mg/dL (7-20); CALCIUM 9.8 mg/dL (8.4-10.2); CARBON DIOXIDE 32 mmol/L (22-30); CHLORIDE 98 mmol/L (98-107); GLUCOSE 154 mg/dL (75-110); POTASSIUM 4.1 mmol/L (3.6-5.0); TRIGLYCERIDES 99 mg/dL (<150)
[2020-09-22 08:00] LABS: DIRECT LDL 100 mg/dL (<100)
[2020-09-22] MEDS: INSULIN REG, HUMAN 100 UNIT/ML 3 ML VIAL (PYX) SUBCUT SCH ×4 (08:19→22:06)
[2020-09-22] MEDS ORDERED: METOPROLOL SUCCINATE 25 MG TAB.SR.24H PO SCH (10:00)
[2020-09-22] MEDS ORDERED: OXYCODONE HCL IR 5 MG TABLET PO ONE (10:45)
[2020-09-22] MEDS: FLUTICASONE NASAL SPRAY 50 MCG/SPRY 120 SPRAY/16 GM NASL SCH (10:57)
[2020-09-22] MEDS: GABAPENTIN 100 MG CAPSULE PO SCH ×2 (10:58→22:04)
[2020-09-22] MEDS: FUROSEMIDE INJ/PF 40 MG/4 ML SDV IV SCH (10:58)
[2020-09-22] MEDS: ASPIRIN 81 MG TABLET, CHEWABLE PO SCH (10:58)
[2020-09-22] MEDS: FLUTICASONE/VILANTEROL 100-25 MCG/DOSE IH SCH (10:58)
[2020-09-22] MEDS: PREDNISONE 20 MG TABLET PO SCH (10:58)
[2020-09-22] MEDS: LOSARTAN POTASSIUM 50 MG TABLET PO SCH (10:59)
[2020-09-22] MEDS: METOPROLOL SUCCINATE 25 MG TAB.SR.24H PO SCH (10:59)
[2020-09-22] MEDS: ENOXAPARIN SODIUM INJ 40 MG/0.4 ML DISP.SYRIN SUBCUT SCH (10:59)
[2020-09-22] MEDS: ONDANSETRON HCL INJ/PF 4 MG/2 ML SDV IV PRN (20:19)
[2020-09-22] MEDS ORDERED: INSULIN GLARGINE,HUM.REC.ANLOG 1,000 UNIT/10 ML VIAL (PYX) SUBCUT ONE ×2 (21:53→22:00)
[2020-09-22] MEDS: ATORVASTATIN CALCIUM 80 MG TABLET PO SCH (22:04)
[2020-09-22] MEDS: AMLODIPINE BESYLATE 10 MG TABLET PO SCH (22:04)
[2020-09-23] MEDS ORDERED: INSULIN LISPRO 100 UNIT/ML 3 ML VIAL SUBCUT ONE (00:45)
[2020-09-23 06:11] LABS: ABSOLUTE LYMPHOCYTES (AUTO) 1.6 10^3/uL (0.5-4.7); ABSOLUTE NEUT (AUTO) 8.5 10^3/uL (1.7-8.2); BASOPHILS % (AUTO) 0.3 % (0-2); EOSINOPHILS % (AUTO) 0.1 % (0-6); HEMATOCRIT 48.5 % (36.0-47.0); HEMOGLOBIN 15.8 g/dL (12.0-15.5); LYMPHOCYTES % (AUTO) 14.2 % (13-45); MEAN CORPUSCULAR HEMOGLOBIN 27.8 pg (27.0-33.4); MEAN CORPUSCULAR HGB CONC 32.6 g/dL (32.0-36.0); MEAN CORPUSCULAR VOLUME 85 fl (80-97); MONOCYTES % (AUTO) 8.8 % (3-13); PLATELET COUNT 191 10^3/uL (150-450); RED CELL DISTRIBUTION WIDTH 15.9 % (11.5-14.0); SEGMENTED NEUTROPHILS % (AUTO) 76.6 % (42-78); TOTAL CELLS COUNTED % (AUTO) 100 %; WHITE BLOOD COUNT 11.1 10^3/uL (4.0-10.5)
[2020-09-23 06:30] LABS: ANION GAP 9 (5-19); BLOOD UREA NITROGEN 34 mg/dL (7-20); CALCIUM 9.6 mg/dL (8.4-10.2); CARBON DIOXIDE 27 mmol/L (22-30); CHLORIDE 99 mmol/L (98-107); GLUCOSE 108 mg/dL (75-110); POTASSIUM 4.6 mmol/L (3.6-5.0)
[2020-09-23] MEDS: INSULIN REG, HUMAN 100 UNIT/ML 3 ML VIAL (PYX) SUBCUT SCH ×4 (08:49→21:25)
[2020-09-23] MEDS: METOPROLOL SUCCINATE 25 MG TAB.SR.24H PO SCH (09:12)
[2020-09-23] MEDS: LOSARTAN POTASSIUM 50 MG TABLET PO SCH (09:13)
[2020-09-23] MEDS: GABAPENTIN 100 MG CAPSULE PO SCH ×2 (09:13→21:25)
[2020-09-23] MEDS: PREDNISONE 20 MG TABLET PO SCH (09:14)
[2020-09-23] MEDS: ASPIRIN 81 MG TABLET, CHEWABLE PO SCH (09:14)
[2020-09-23] MEDS: FUROSEMIDE INJ/PF 40 MG/4 ML SDV IV SCH (09:14)
[2020-09-23] MEDS: ENOXAPARIN SODIUM INJ 40 MG/0.4 ML DISP.SYRIN SUBCUT SCH (09:15)
--- NOTE | 2020-09-23 10:02 | PDOC CONSULTATION ---
Consultation Consult Date: 09/23/20 Attending physician:: AMANDEEP CALDERÓN Provider Consulted: TEDDY JUAN Consult reason:: [id number] History of Present Illness Admission Date/PCP: 09/21/20 02:43 RAMILA ESCALONA MD History of Present Illness: DAVIN HERNANDEZ is a 85 year old female DAVIN HERNANDEZ is a 85 year old female with a history of monoclonal gammopathy, type 2 diabetes, hypertension, stage IV COPD (very severe), pulmonary hypertension followed by Dr. Parnell at [facility], and heart failure with preserved ejection fraction who is consulted to our service for further evaluation and management of heart failure. The patient was brought to our emergency department by EMS after she was found lying in her kitchen floor for an unknown amount of time. Apparently EMS found her with an oxygen saturation of 76% on room air but her oxygen level improved with 3 L of oxygen. Of note, she had been missing her Lasix for at least 1 week week due to increased urination at night. She did endorse increased shortness of breath. She had an uneventful night and is found resting in bed comfortably. She denies cardiovascular complaints and feels slightly better. Unfortunately she did have a CVA as demonstrated by her brain imaging. Physical exam on 09/23/2020: GENERAL: Pleasant and conversational. Oriented x3 with normal mood. Not in acute distress. Well groomed and well developed. HEENT: Normocephalic, atraumatic. Pupils equal. Sclerae anicteric. Oropharynx moist. NECK: No JVD. No carotid bruits. LUNGS: Clear to auscultation bilaterally. Normal respiratory effort without the use of accessory muscles or intercostal retractions. CARDIOVASCULAR: Regular rate and rhythm, normal S1 and S2 without murmurs, rubs, or gallops. PMI not displaced. ABDOMEN: No masses or tenderness to palpation. No bruit. No splenomegaly or hepatomegaly. No abdominal aorta bruit noted. EXTREMITIES: No edema, no cyanosis, no clubbing. +2 pulses femoral and pedal pulses bilaterally. SKIN: No lesions or rashes. MUSCULOSKELETAL: No chest tenderness to palpation. Cardiac studies: Echocardiogram on 09/21/2020 at [facility]: -LV systolic function is normal. -EF 60 to 65%. -No wall motion abnormalities. -Grade 2 diastolic dysfunction. -Mild concentric LVH. -Trace to mild MR, moderate to severe TR. -Severe pulmonary hypertension with pressures estimated between 60 and 70 mmHg. Lexiscan MPS on 02/25/19: -Small area of moderate ischemia in the basal inferoseptal and basal inferior wall. -EF 53%. -Normal wall motion. Echocardiogram on 02/19/19 at [facility]: -LV is normal in size. -Moderate concentric LVH. -EF 65%. -Grade 1 diastolic dysfunction. -No wall motion normalities. -Moderate RVE with mildly reduced systolic function. -Moderate MAC without stenosis. -Mild MR, moderate TR, moderate PI,. -Severe pulmonary hypertension with pressures between 63 and 68 mmHg. Past Medical History Cardiac Medical History: Reports: Congestive Heart Failure, Myocardial Infarction, Hyperlipidema, Hypertension - medicated Denies: Coronary Artery Disease Pulmonary Medical History: Reports: Chronic Obstructive Pulmonary Disease (COPD) Denies: Asthma, Bronchitis, Pneumonia Neurological Medical History: Denies: Seizures Endocrine Medical History: Reports: Diabetes Mellitus Type 2 GI Medical History: Denies: Hepatitis, Hiatal Hernia Musculoskeltal Medical History: Reports: Arthritis Psychiatric Medical History: Denies: Depression Hematology: Denies: Anemia, Sickle Cell Disease Past Surgical History Past Surgical History: Reports: Carotid Endarterectomy, Tubal Ligation, Vascular Surgery - right carotid "cleaned out" Denies: Amputation, Hysterectomy, Mastectomy, Pacemaker Social History Lives with: Family Smoking Status: Unknown if Ever Smoked Electronic Cigarette use?: No Last Time Smoked: 1969 Frequency of Alcohol Use: None Hx Recreational Drug Use: No Drugs: None Hx Prescription Drug Abuse: No - Advance Directive Resuscitation Status: Full Code Family History Family History: Reviewed & Not Pertinent Parental Family History Reviewed: Yes Children Family History Reviewed: Yes Sibling(s) Family History Reviewed.: Yes Medication/Allergy Home Medications: Fluticasone Propionate [Flonase Nasal [place] 50 Mcg/[place] 16 gm] 1 spray NASL DAILY 09/21/20 Furosemide [Lasix 40 mg Tablet] 40 mg PO DAILY 09/21/20 Gabapentin [Neurontin 100 mg Capsule] 200 mg PO Q12 09/21/20 Insulin Glargine,Hum.rec.anlog [Lantus Insulin 100 Unit/mL Insulin Pen] 14 unit SUBCUT QPM 09/21/20 Metoprolol Succinate [Toprol Xl 25 mg Tab.sr] 25 mg PO DAILY 09/21/20 Omeprazole 20 mg PO DAILY 09/21/20 Telmisartan/Amlodipine [Telmisartan-Amlodipine 40-10] 0.5 each PO DAILY 09/21/20 Umeclidinium Brm/Vilanterol Tr [Anoro Ellipta 62.5-25 Mcg INH] 1 each IH DAILY 09/21/20 Allergies/Adverse Reactions: Sulfa (Sulfonamide Antibiotics) Allergy (Unknown, Verified 09/20/20 19:36) metformin Allergy (Verified 09/20/20 19:36) Physical Exam Vital Signs: Temp Pulse Resp BP Pulse Ox 97.9 F 77 17 151/83 H 93 09/23/20 00:13 09/23/20 02:00 09/23/20 00:13 09/23/20 00:13 09/23/20 03:06 Intake & Output 09/21/20 09/22/20 09/23/20 06:59 06:59 06:59 Intake Total 250 750 220 Output Total 1450 1100 150 Balance -1200 -350 70 Weight 66.3 kg 69.1 kg 66.7 kg Results Laboratory Results: 09/23/20 05:53 09/23/20 05:53 09/22/20 09/22/20 09/23/20 06:30 06:30 05:53 WBC 10.8 H 11.1 H RBC 5.60 H 5.70 H Hgb 15.5 15.8 H Hct 47.6 H 48.5 H MCV 85 85 MCH 27.6 27.8 MCHC 32.5 32.6 RDW 15.3 H 15.9 H Plt Count 185 191 Seg Neutrophils % 76.6 Sodium 135.4 L Potassium 4.1 Chloride 98 Carbon Dioxide 32 H Anion Gap 5 BUN 25 H Creatinine 0.92 Est GFR ( Amer) > 60 Glucose 154 H Calcium 9.8 Triglycerides 99 Cholesterol 161.00 LDL Cholesterol Direct 100 VLDL Cholesterol 20.0 HDL Cholesterol 46 09/23/20 05:53 WBC RBC Hgb Hct MCV MCH MCHC RDW Plt Count Seg Neutrophils % Sodium 135.2 L Potassium 4.6 Chloride 99 Carbon Dioxide 27 Anion Gap 9 BUN 34 H Creatinine 0.99 Est GFR ( Amer) > 60 Glucose 108 Calcium 9.6 Triglycerides Cholesterol LDL Cholesterol Direct VLDL Cholesterol HDL Cholesterol 09/20/20 17:52 Troponin I < 0.012 NT-Pro-B Natriuret Pep 3930 H Impressions: Chest X-Ray 09/20/20 19:45 IMPRESSION: No acute process. No significant interval change. Hip/Pelvis X-Ray 09/20/20 19:45 IMPRESSION: Subtle degenerative change of the right hip. No fracture. Knee X-Ray 09/20/20 19:45 IMPRESSION: No acute process. Subtle degenerative change in the lateral compartment. Carotid Doppler Study 09/21/20 00:00 IMPRESSION: NO HEMODYNAMICALLY SIGNIFICANT STENOSIS. Head MRI 09/21/20 00:00 IMPRESSION: 1. SMALL FOCAL AREAS OF RESTRICTED DIFFUSION IN THE RIGHT FRONTAL LOBE AND SUPERIOR LEFT FRONTAL LOBE CONSISTENT WITH ACUTE LACUNAR INFARCTS. 2. ATROPHY AND CHRONIC MICRO-VASCULAR ISCHEMIC CHANGES. EVIDENCE OF ACUTE STROKE: YES. RIGHT MCA AND LEFT UMA. Head CT 09/21/20 00:26 IMPRESSION: 1. No acute intracranial abnormality by CT criteria. This exam was performed according to our departmental dose-optimization program, which includes automated exposure control, adjustment of the mA and/or kV according to patient size and/or use of iterative reconstruction technique. Assessment & Plan - Diagnosis (1) Heart failure with preserved ejection fraction Is this a current diagnosis for this admission?: Yes Plan: The patient is diuresing well and her fluid balance is -1780 cc. Her elevated BNP is multifactorial in etiology to include her heart failure as well as her pulmonary hypertension. Recommendations: -Continue diuresis with current doses of Lasix IV -Continue with baby aspirin, atorvastatin, ARB. -Restrict fluid intake to 1500 cc daily. -Low sodium diet, less than 1500 mg daily. -Strict intake and output. -Daily weights. -Daily BMP/magnesium and replace electrolytes as needed. (2) Hypertension Qualifiers: Hypertension type: essential hypertension Qualified Code(s): I10 - Essential (primary) hypertension Plan: Her blood pressure is at goal this morning. We will continue with current medical management. (3) COPD (chronic obstructive pulmonary disease) Qualifiers: COPD type: emphysema Plan: The patient has very severe COPD and is followed by Dr. Parnell with [facility]. Further management per hospitalist team. (4) Severe pulmonary arterial systolic hypertension Plan: Secondary to her severe COPD. She will continue to follow up with Dr. Parnell.
[2020-09-23] MEDS: FLUTICASONE NASAL SPRAY 50 MCG/SPRY 120 SPRAY/16 GM NASL SCH (11:55)
[2020-09-23] MEDS: FLUTICASONE/VILANTEROL 100-25 MCG/DOSE IH SCH (11:56)
[2020-09-23] MEDS: ACETAMINOPHEN 325 MG TABLET PO PRN (15:35)
[2020-09-23] MEDS ORDERED: MAG HYDROX/AL HYDROX/SIMETH SUSP 30 ML UDCUP PO PRN (15:43)
--- NOTE | 2020-09-23 16:50 | PDOC PROGRESS REPORT ---
Subjective Date:: 09/23/20 Subjective:: Patient is resting in bed Reason For Visit: CONGESTIVE HEART FAILURE,ACUTE AND CHRONIC Physical Exam Vital Signs: Temp Pulse Resp BP Pulse Ox 97.5 F 75 19 134/79 H 85 L 09/23/20 11:41 09/23/20 16:06 09/23/20 16:06 09/23/20 16:06 09/23/20 16:06 Intake & Output 09/22/20 09/23/20 09/24/20 06:59 06:59 06:59 Intake Total 750 220 Output Total 1100 450 Balance -350 -230 Weight 69.1 kg 66.7 kg General appearance: PRESENT: no acute distress, cooperative, well-developed Head exam: PRESENT: atraumatic, normocephalic Eye exam: PRESENT: conjunctiva pink. ABSENT: scleral icterus Ear exam: PRESENT: normal external ear exam. ABSENT: bleeding, drainage Mouth exam: PRESENT: moist, tongue midline Respiratory exam: PRESENT: clear to auscultation nicolas, symmetrical, unlabored. ABSENT: decreased breath sounds, rales, rhonchi, tachypnea, wheezes Cardiovascular exam: PRESENT: RRR, +S1, +S2. ABSENT: bradycardia, diastolic murmur, irregular rhythm, systolic murmur, tachycardia GI/Abdominal exam: PRESENT: normal bowel sounds, soft. ABSENT: distended, tenderness Rectal exam: PRESENT: deferred Extremities exam: ABSENT: pedal edema Musculoskeletal exam: PRESENT: normal inspection. ABSENT: deformity, dislocation Neurological exam: PRESENT: alert, awake, oriented to person, oriented to place, oriented to time, oriented to situation, CN II-XII grossly intact, motor sensory deficit - Still with right leg weakness. ABSENT: altered Psychiatric exam: PRESENT: appropriate affect. ABSENT: agitated, anxious Focused psych exam: ABSENT: delusional, paranoid, restlessness Skin exam: PRESENT: dry, normal color, warm. ABSENT: rash Results Laboratory Results: 09/23/20 05:53 09/23/20 05:53 09/23/20 09/23/20 05:53 05:53 WBC 11.1 H RBC 5.70 H Hgb 15.8 H Hct 48.5 H MCV 85 MCH 27.8 MCHC 32.6 RDW 15.9 H Plt Count 191 Seg Neutrophils % 76.6 Sodium 135.2 L Potassium 4.6 Chloride 99 Carbon Dioxide 27 Anion Gap 9 BUN 34 H Creatinine 0.99 Est GFR ( Amer) > 60 Glucose 108 Calcium 9.6 09/20/20 17:52 Troponin I < 0.012 NT-Pro-B Natriuret Pep 3930 H Impressions: Chest X-Ray 09/20/20 19:45 IMPRESSION: No acute process. No significant interval change. Hip/Pelvis X-Ray 09/20/20 19:45 IMPRESSION: Subtle degenerative change of the right hip. No fracture. Knee X-Ray 09/20/20 19:45 IMPRESSION: No acute process. Subtle degenerative change in the lateral compartment. Carotid Doppler Study 09/21/20 00:00 IMPRESSION: NO HEMODYNAMICALLY SIGNIFICANT STENOSIS. Head MRI 09/21/20 00:00 IMPRESSION: 1. SMALL FOCAL AREAS OF RESTRICTED DIFFUSION IN THE RIGHT FRONTAL LOBE AND SUPERIOR LEFT FRONTAL LOBE CONSISTENT WITH ACUTE LACUNAR INFARCTS. 2. ATROPHY AND CHRONIC MICRO-VASCULAR ISCHEMIC CHANGES. EVIDENCE OF ACUTE STROKE: YES. RIGHT MCA AND LEFT UMA. Head CT 09/21/20 00:26 IMPRESSION: 1. No acute intracranial abnormality by CT criteria. This exam was performed according to our departmental dose-optimization program, which includes automated exposure control, adjustment of the mA and/or kV according to patient size and/or use of iterative reconstruction technique. Assessment and Plan - Diagnosis (1) Acute on chronic respiratory failure with hypoxia Is this a current diagnosis for this admission?: Yes (2) COPD exacerbation Is this a current diagnosis for this admission?: Yes (3) Acute on chronic diastolic heart failure Is this a current diagnosis for this admission?: Yes (4) Acute lacunar infarction Is this a current diagnosis for this admission?: Yes (5) Hypertension Qualifiers: Hypertension type: essential hypertension Qualified Code(s): I10 - Essential (primary) hypertension Is this a current diagnosis for this admission?: Yes (6) Right leg weakness Is this a current diagnosis for this admission?: Yes (7) Severe pulmonary arterial systolic hypertension Is this a current diagnosis for this admission?: Yes (8) Tricuspid regurgitation Qualifiers: Cardiac valve disease etiology: etiology unspecified Qualified Code(s): I07.1 - Rheumatic tricuspid insufficiency Is this a current diagnosis for this admission?: Yes - Plan Summary Summary: 09/21/2020 I spent approximately 30 minutes with the patient and her son. The majority of it was regarding her current illnesses Echocardiogram revealed an acute diastolic heart failure-we will adjust medication regimen accordingly She has a history of a carotid endarterectomy or atherectomy. I explained the use of statin therapy. The patient states she had diarrhea with statin therapy but I think she confuse this with a history of using Metformin. We will need aspirin, statin therapy, good control of blood pressure and diab etes. She thinks telmisartan caused her stroke. She is currently on losartan. They asked about Entresto but her ejection fraction is well above the threshold. Physical therapy did work with her. She is a week but her goal is home with home health and therapy. She did cough when she took a drink and I will ask speech therapy to see her. 09/22/2020 Acute ischemic bilateral lacunar infarct-by the time the patient presented to the emergency department she was outside of the window for TPA and even if stroke alert was called in the emergency department she still would have been outside the window. She continues to work with physical therapy. Due to the significant weakness in the right leg short-term rehab is suggested. Heart failure is actually acute on chronic diastolic. There is also severe pulmonary hypertension with tricuspid regurgitation. Cardiology will see the patient tomorrow. We discussed the possibility of going to a pulmonary hypertension specialty clinic unfortunately they are not local. One is in [place] and there are 1 or 2 in the [facility] area. Accu-Cheks are still higher than desired. I will increase the Lantus. Speech therapy did evaluate the patient and there is no evidence of dysphagia. 09/23/2020 Bilateral infarcts-continuing with physical therapy. Will need short-term rehab due to predominantly right leg weakness. Hypertension-blood pressure is increasing and so I have added back amlodipine and losartan in place of her telmisartan. Diastolic heart failure-the patient is on 40 mg IV daily. We will need to begin switching to an oral regimen in anticipation of transfer to [facility]. Severe pulmonary hypertension-continue current regimen. I did discuss with the patient's daughter that at 85 years old there is not much to be done except medication management. Diabetes-I did find out today that glimepiride was not on her med rec. We have started her glimepiride 4 mg daily. We will make adjustments in her insulin regimen accordingly. I did speak to the patient's daughter Lidia who is a nurse. We reviewed the patient's progress as well as medication regimen on plans for disposition. She will continue to support short-term rehab with her mother and brother. - Time Time Spent with patient: 15-24 minutes Medications reviewed and adjusted accordingly: Yes Anticipated Discharge Disposition: Longterm Facility Anticipated Discharge Timeframe: within 72 hours
[2020-09-23] MEDS: GLIMEPIRIDE 4 MG TABLET PO SCH (19:30)
[2020-09-23] MEDS ORDERED: OXYCODONE HCL IR 5 MG TABLET PO PRN (20:26)
[2020-09-23] MEDS: ATORVASTATIN CALCIUM 80 MG TABLET PO SCH (21:25)
[2020-09-23] MEDS: INSULIN GLARGINE,HUM.REC.ANLOG 1,000 UNIT/10 ML VIAL SUBCUT SCH (21:27)
[2020-09-24 07:23] LABS: ANION GAP 6 (5-19); BLOOD UREA NITROGEN 38 mg/dL (7-20); CALCIUM 9.6 mg/dL (8.4-10.2); CARBON DIOXIDE 32 mmol/L (22-30); CHLORIDE 99 mmol/L (98-107); GLUCOSE 131 mg/dL (75-110); POTASSIUM 4.7 mmol/L (3.6-5.0)
[2020-09-24] MEDS: INSULIN REG, HUMAN 100 UNIT/ML 3 ML VIAL (PYX) SUBCUT SCH ×4 (07:58→22:10)
[2020-09-24] MEDS: FUROSEMIDE INJ/PF 40 MG/4 ML SDV IV SCH (09:14)
[2020-09-24] MEDS: ASPIRIN 81 MG TABLET, CHEWABLE PO SCH (09:14)
[2020-09-24] MEDS: PREDNISONE 20 MG TABLET PO SCH (09:15)
[2020-09-24] MEDS: GLIMEPIRIDE 4 MG TABLET PO SCH (09:15)
[2020-09-24] MEDS: METOPROLOL SUCCINATE 25 MG TAB.SR.24H PO SCH (09:15)
[2020-09-24] MEDS: ENOXAPARIN SODIUM INJ 40 MG/0.4 ML DISP.SYRIN SUBCUT SCH (09:15)
[2020-09-24] MEDS: GABAPENTIN 100 MG CAPSULE PO SCH ×2 (09:15→22:10)
[2020-09-24] MEDS: FLUTICASONE NASAL SPRAY 50 MCG/SPRY 120 SPRAY/16 GM NASL SCH (09:19)
[2020-09-24] MEDS: FLUTICASONE/VILANTEROL 100-25 MCG/DOSE IH SCH (09:19)
--- NOTE | 2020-09-24 09:36 | PDOC PROGRESS REPORT ---
Subjective Date:: 09/24/20 Subjective:: DAVIN HERNANDEZ is a 85 year old female with a history of monoclonal gammopathy, t ype 2 diabetes, hypertension, stage IV COPD (very severe), pulmonary hypertension followed by Dr. Parnell at [facility], and heart failure with preserved ejection fraction who is consulted to our service for further evaluation and management of heart failure. The patient was brought to our emergency department by EMS after she was found lying in her kitchen floor for an unknown amount of time. Apparently EMS found her with an oxygen saturation of 76% on room air but her oxygen level improved with 3 L of oxygen. Of note, she had been missing her Lasix for at least 1 week week due to increased urination at night. She did endorse increased shortness of breath. She had an uneventful night and is found resting in bed comfortably. She denies cardiovascular complaints and feels slightly better. Unfortunately she did have a CVA as demonstrated by her brain imaging. 09/24/2020: The patient had an uneventful night and continues to have a negative fluid balance. She has remained stable from the cardiovascular standpoint and denies cardiac complaints this morning. Her telemetry is unremarkable. Her blood pressure had been slowly increasing however Dr. Acevedo already addressed this issue. Physical exam on 09/24/2020: GENERAL: Pleasant and conversational. Oriented x3 with normal mood. Not in acute distress. Well groomed and well developed. HEENT: Normocephalic, atraumatic. Pupils equal. Sclerae anicteric. Oropharynx moist. NECK: No JVD. No carotid bruits. LUNGS: Clear to auscultation bilaterally. Normal respiratory effort without the use of accessory muscles or intercostal retractions. CARDIOVASCULAR: Regular rate and rhythm, normal S1 and S2 without murmurs, rubs, or gallops. PMI not displaced. ABDOMEN: No masses or tenderness to palpation. No bruit. No splenomegaly or hepatomegaly. No abdominal aorta bruit noted. EXTREMITIES: No edema, no cyanosis, no clubbing. +2 pulses femoral and pedal pulses bilaterally. SKIN: No lesions or rashes. MUSCULOSKELETAL: No chest tenderness to palpation. Cardiac studies: Echocardiogram on 09/21/2020 at [facility]: -LV systolic function is normal. -EF 60 to 65%. -No wall motion abnormalities. -Grade 2 diastolic dysfunction. -Mild concentric LVH. -Trace to mild MR, moderate to severe TR. -Severe pulmonary hypertension with pressures estimated between 60 and 70 mmHg. Lexiscan MPS on 02/25/19: -Small area of moderate ischemia in the basal inferoseptal and basal inferior wall. -EF 53%. -Normal wall motion. Echocardiogram on 02/19/19 at [facility]: -LV is normal in size. -Moderate concentric LVH. -EF 65%. -Grade 1 diastolic dysfunction. -No wall motion normalities. -Moderate RVE with mildly reduced systolic function. -Moderate MAC without stenosis. -Mild MR, moderate TR, moderate PI,. -Severe pulmonary hypertension with pressures between 63 and 68 mmHg. Reason For Visit: CONGESTIVE HEART FAILURE,ACUTE AND CHRONIC Physical Exam Vital Signs: Temp Pulse Resp BP Pulse Ox 97.8 F 70 17 142/72 H 91 L 09/24/20 03:37 09/24/20 03:37 09/24/20 03:37 09/24/20 03:37 09/24/20 03:37 Intake & Output 09/23/20 09/24/20 09/25/20 06:59 06:59 06:59 Intake Total 220 1540 Output Total 450 1400 Balance -230 140 Weight 66.7 kg 68.6 kg Results Laboratory Results: 09/23/20 05:53 09/24/20 06:44 09/24/20 06:44 Sodium 137.0 Potassium 4.7 Chloride 99 Carbon Dioxide 32 H Anion Gap 6 BUN 38 H Creatinine 0.99 Est GFR ( Amer) > 60 Glucose 131 H Calcium 9.6 Magnesium 2.2 09/20/20 17:52 Troponin I < 0.012 NT-Pro-B Natriuret Pep 3930 H Impressions: Chest X-Ray 09/20/20 19:45 IMPRESSION: No acute process. No significant interval change. Hip/Pelvis X-Ray 09/20/20 19:45 IMPRESSION: Subtle degenerative change of the right hip. No fracture. Knee X-Ray 09/20/20 19:45 IMPRESSION: No acute process. Subtle degenerative change in the lateral compartment. Carotid Doppler Study 09/21/20 00:00 IMPRESSION: NO HEMODYNAMICALLY SIGNIFICANT STENOSIS. Head MRI 09/21/20 00:00 IMPRESSION: 1. SMALL FOCAL AREAS OF RESTRICTED DIFFUSION IN THE RIGHT FRONTAL LOBE AND SUPERIOR LEFT FRONTAL LOBE CONSISTENT WITH ACUTE LACUNAR INFARCTS. 2. ATROPHY AND CHRONIC MICRO-VASCULAR ISCHEMIC CHANGES. EVIDENCE OF ACUTE STROKE: YES. RIGHT MCA AND LEFT UMA. Head CT 09/21/20 00:26 IMPRESSION: 1. No acute intracranial abnormality by CT criteria. This exam was performed according to our departmental dose-optimization program, which includes automated exposure control, adjustment of the mA and/or kV according to patient size and/or use of iterative reconstruction technique. Assessment & Plan - Diagnosis (1) Heart failure with preserved ejection fraction Is this a current diagnosis for this admission?: Yes Plan: The patient continues to have a negative fluid balance and remains asymptomatic. Recommendations: -Agree with plan to switch IV Lasix to p.o. in preparation for discharge. -Continue with medical management. -Restrict fluid intake to 1500 cc daily. -Low sodium diet, less than 1500 mg daily. -Strict intake and output. -Daily weights. -Daily BMP/magnesium and replace electrolytes as needed. -Cardiology does not have further recommendations therefore we will sign off the case. Please reconsult if necessary. (2) Hypertension Qualifiers: Hypertension type: essential hypertension Qualified Code(s): I10 - Essential (primary) hypertension Is this a current diagnosis for this admission?: Yes Plan: Her blood pressure is above goal. Dr. Acevedo is already addressing this issue therefore I will defer further management to him. (3) COPD (chronic obstructive pulmonary disease) Qualifiers: COPD type: emphysema Is this a current diagnosis for this admission?: Yes Plan: The patient has very severe COPD and is followed by Dr. Parnell with [facility]. Further management per hospitalist team. (4) Severe pulmonary arterial systolic hypertension Is this a current diagnosis for this admission?: Yes Plan: Secondary to her severe COPD. She will continue to follow up with Dr. Parnell.
[2020-09-24] MEDS ORDERED: AMLODIPINE PO SCH (10:00)
[2020-09-24] MEDS ORDERED: [UNRECOGNIZED DRUG - OTHER] PO SCH (10:00)
[2020-09-24] MEDS ORDERED: LOSARTAN POTASSIUM 50 MG TABLET PO SCH (10:00)
[2020-09-24] MEDS ORDERED: TELMISARTAN PO SCH (10:00)
[2020-09-24] MEDS ORDERED: AMLODIPINE BESYLATE 10 MG TABLET PO SCH (10:00)
--- NOTE | 2020-09-24 12:56 | PDOC PROGRESS REPORT ---
Subjective Date:: 09/24/20 Subjective:: The patient is resting in bed. Her son is at the bedside. She had her physical therapy session was earlier today. Reason For Visit: CONGESTIVE HEART FAILURE,ACUTE AND CHRONIC Physical Exam Vital Signs: Temp Pulse Resp BP Pulse Ox 97.8 F 63 20 119/63 90 L 09/24/20 08:35 09/24/20 07:45 09/24/20 07:45 09/24/20 07:45 09/24/20 07:45 Intake & Output 09/23/20 09/24/20 09/25/20 06:59 06:59 06:59 Intake Total 220 1540 Output Total 450 1400 Balance -230 140 Weight 66.7 kg 68.6 kg General appearance: PRESENT: no acute distress, cooperative, well-developed, well-nourished, other - Nasal cannula in place Head exam: PRESENT: atraumatic, normocephalic Ear exam: PRESENT: normal external ear exam. ABSENT: bleeding, drainage Mouth exam: PRESENT: moist, tongue midline Respiratory exam: PRESENT: rales - Fine rales, symmetrical, unlabored. ABSENT: accessory muscle use, rhonchi, tachypnea, wheezes Cardiovascular exam: PRESENT: RRR, +S1, +S2 GI/Abdominal exam: PRESENT: normal bowel sounds, soft, tenderness - Epigastrium. ABSENT: distended, guarding Rectal exam: PRESENT: deferred Gentrourinary exam: ABSENT: indwelling catheter Extremities exam: ABSENT: pedal edema Musculoskeletal exam: PRESENT: ambulatory, normal inspection. ABSENT: deformity, dislocation Neurological exam: PRESENT: alert, awake, oriented to person, oriented to place, oriented to time, oriented to situation, CN II-XII grossly intact. ABSENT: altered Psychiatric exam: PRESENT: appropriate affect. ABSENT: agitated, anxious Focused psych exam: ABSENT: delusional, paranoid, restlessness Skin exam: PRESENT: dry, normal color, warm. ABSENT: rash Results Laboratory Results: 09/23/20 05:53 09/24/20 06:44 09/24/20 06:44 Sodium 137.0 Potassium 4.7 Chloride 99 Carbon Dioxide 32 H Anion Gap 6 BUN 38 H Creatinine 0.99 Est GFR ( Amer) > 60 Glucose 131 H Calcium 9.6 Magnesium 2.2 09/20/20 17:52 Troponin I < 0.012 NT-Pro-B Natriuret Pep 3930 H Impressions: Chest X-Ray 09/20/20 19:45 IMPRESSION: No acute process. No significant interval change. Hip/Pelvis X-Ray 09/20/20 19:45 IMPRESSION: Subtle degenerative change of the right hip. No fracture. Knee X-Ray 09/20/20 19:45 IMPRESSION: No acute process. Subtle degenerative change in the lateral compartment. Carotid Doppler Study 09/21/20 00:00 IMPRESSION: NO HEMODYNAMICALLY SIGNIFICANT STENOSIS. Head MRI 09/21/20 00:00 IMPRESSION: 1. SMALL FOCAL AREAS OF RESTRICTED DIFFUSION IN THE RIGHT FRONTAL LOBE AND SUPERIOR LEFT FRONTAL LOBE CONSISTENT WITH ACUTE LACUNAR INFARCTS. 2. ATROPHY AND CHRONIC MICRO-VASCULAR ISCHEMIC CHANGES. EVIDENCE OF ACUTE STROKE: YES. RIGHT MCA AND LEFT UMA. Head CT 09/21/20 00:26 IMPRESSION: 1. No acute intracranial abnormality by CT criteria. This exam was performed according to our departmental dose-optimization program, which includes automated exposure control, adjustment of the mA and/or kV according to patient size and/or use of iterative reconstruction technique. Assessment and Plan - Diagnosis (1) Acute on chronic respiratory failure with hypoxia Is this a current diagnosis for this admission?: Yes (2) COPD exacerbation Is this a current diagnosis for this admission?: Yes (3) Acute on chronic diastolic heart failure Is this a current diagnosis for this admission?: Yes (4) Acute lacunar infarction Is this a current diagnosis for this admission?: Yes (5) Hypertension Qualifiers: Hypertension type: essential hypertension Qualified Code(s): I10 - Essential (primary) hypertension Is this a current diagnosis for this admission?: Yes (6) Right leg weakness Is this a current diagnosis for this admission?: Yes (7) Severe pulmonary arterial systolic hypertension Is this a current diagnosis for this admission?: Yes (8) Tricuspid regurgitation Qualifiers: Cardiac valve disease etiology: etiology unspecified Qualified Code(s): I07.1 - Rheumatic tricuspid insufficiency Is this a current diagnosis for this admission?: Yes - Plan Summary Summary: 09/21/2020 I spent approximately 30 minutes with the patient and her son. The majority of it was regarding her current illnesses Echocardiogram revealed an acute diastolic heart failure-we will adjust medication regimen accordingly She has a history of a carotid endarterectomy or atherectomy. I explained the use of statin therapy. The patient states she had diarrhea with statin therapy but I think she confuse this with a history of using Metformin. We will need aspirin, statin therapy, good control of blood pressure and diabetes. She thinks telmisartan caused her stroke. She is currently on losartan. They asked about Entresto but her ejection fraction is well above the threshold. Physical therapy did work with her. She is a week but her goal is home with home health and therapy. She did cough when she took a drink and I will ask speech therapy to see her. 09/22/2020 Acute ischemic bilateral lacunar infarct-by the time the patient presented to the emergency department she was outside of the window for TPA and even if stroke alert was called in the emergency department she still would have been outside the window. She continues to work with physical therapy. Due to the significant weakness in the right leg short-term rehab is suggested. Heart failure is actually acute on chronic diastolic. There is also severe pulmonary hypertension with tricuspid regurgitation. Cardiology will see the patient tomorrow. We discussed the possibility of going to a pulmonary hyperten maria t specialty clinic unfortunately they are not local. One is in [place] and there are 1 or 2 in the [facility] area. Accu-Cheks are still higher than desired. I will increase the Lantus. Speech therapy did evaluate the patient and there is no evidence of dysphagia. 09/23/2020 Bilateral infarcts-continuing with physical therapy. Will need short-term rehab due to predominantly right leg weakness. Hypertension-blood pressure is increasing and so I have added back amlodipine and losartan in place of her telmisartan. Diastolic heart failure-the patient is on 40 mg IV daily. We will need to begin switching to an oral regimen in anticipation of transfer to long term. Severe pulmonary hypertension-continue current regimen. I did discuss with the patient's daughter that at 85 years old there is not much to be done except medication management. Diabetes-I did find out today that glimepiride was not on her med rec. We have started her glimepiride 4 mg daily. We will make adjustments in her insulin regimen accordingly. I did speak to the patient's daughter Lidia who is a nurse. We reviewed the patient's progress as well as medication regimen on plans for disposition. She will continue to support short-term rehab with her mother and brother. 09/24/2020 The patient son was at the bedside. Bilateral lacunar infarcts-continue physical therapy. Accepted at short-term rehab however awaiting Covid results. Unfortunately they do not take patients on the weekends and so she will be here through the weekend. We will continue therapy. Hypertension-she did have her own antihypertensive telmisartan/amlodipine. She is back on the medication as she had it on her. The losartan/hydrochlorothiazide combination was stopped last evening. On her own medication regimen her blood pressure is much improved. Furosemide dosing has moved to oral formulation as we anticipate discharge soon. Currently not symptomatic for heart failure. Pulmonary hypertension with COPD-I have started her on Brio Ellipta. Nebulizer treatments available if needed. Continue diuresis. Diabetes-adjusting insulin daily. I have increased the premeal fixed dose. The steroids certainly will interfere and we will need to adjust the medication consistently based on the Accu-Cheks. The patient may very well need home oxygen therapy after this episode. The combination of severe pulmonary hypertension with severe COPD and diastolic heart failure make this extremely likely. Her son actually feels that she would have benefited from being on oxygen already. Will defer to the short-term rehab facility to arrange for oxygen if clinically appropriate. - Time Time Spent with patient: 15-24 minutes Medications reviewed and adjusted accordingly: Yes [facility] Anticipated Discharge Timeframe: when bed available - Delayed due to Covid test. Facility does not take patients on the weekend.
[2020-09-24] MEDS: PANTOPRAZOLE SODIUM 40 MG TABLET.DR PO SCH (14:03)
[2020-09-24] MEDS: INSULIN GLARGINE,HUM.REC.ANLOG 1,000 UNIT/10 ML VIAL SUBCUT SCH (22:09)
[2020-09-24] MEDS: ATORVASTATIN CALCIUM 80 MG TABLET PO SCH (22:10)
[2020-09-25] MEDS: PANTOPRAZOLE SODIUM 40 MG TABLET.DR PO SCH (05:30)
--- NOTE | 2020-09-25 09:25 | PDOC PROGRESS REPORT ---
Subjective Date:: 09/25/20 Subjective:: The patient is sitting at the edge of the bed. She is still on nasal cannula ox ygen. We discussed her breathing and she feels that is not quite back to baseline. She is on 3 and half liters nasal cannula. Reason For Visit: CONGESTIVE HEART FAILURE,ACUTE AND CHRONIC Physical Exam Vital Signs: Temp Pulse Resp BP Pulse Ox 98.9 F 67 16 155/79 H 92 09/25/20 03:16 09/25/20 07:01 09/25/20 03:16 09/25/20 03:16 09/25/20 03:16 Intake & Output 09/24/20 09/25/20 09/26/20 06:59 06:59 06:59 Intake Total 1540 920 Output Total 1400 1650 Balance 140 -730 Weight 68.6 kg 68.4 kg General appearance: PRESENT: no acute distress, cooperative, well-developed Head exam: PRESENT: atraumatic, normocephalic Eye exam: PRESENT: conjunctiva pink. ABSENT: scleral icterus Ear exam: PRESENT: normal external ear exam. ABSENT: bleeding, drainage Mouth exam: PRESENT: moist, tongue midline Neck exam: ABSENT: carotid bruit, JVD, lymphadenopathy Respiratory exam: PRESENT: rales - Fine rales bilateral bases, symmetrical, unlabored. ABSENT: accessory muscle use, rhonchi, tachypnea, wheezes Cardiovascular exam: PRESENT: RRR, +S1, +S2, systolic murmur. ABSENT: bradycardia, diastolic murmur, irregular rhythm, tachycardia GI/Abdominal exam: PRESENT: normal bowel sounds, soft. ABSENT: distended, guarding, tenderness Rectal exam: PRESENT: deferred Gentrourinary exam: ABSENT: indwelling catheter Extremities exam: ABSENT: pedal edema, tenderness Musculoskeletal exam: PRESENT: ambulatory, normal inspection. ABSENT: deformity, dislocation Neurological exam: PRESENT: alert, awake, oriented to person, oriented to place, oriented to time, oriented to situation, CN II-XII grossly intact. ABSENT: altered Psychiatric exam: PRESENT: appropriate affect. ABSENT: agitated, anxious Focused psych exam: ABSENT: delusional, paranoid, restlessness Skin exam: PRESENT: dry, normal color, warm. ABSENT: rash Results Laboratory Results: 09/23/20 05:53 09/24/20 06:44 09/20/20 17:52 Troponin I < 0.012 NT-Pro-B Natriuret Pep 3930 H Impressions: Chest X-Ray 09/20/20 19:45 IMPRESSION: No acute process. No significant interval change. Hip/Pelvis X-Ray 09/20/20 19:45 IMPRESSION: Subtle degenerative change of the right hip. No fracture. Knee X-Ray 09/20/20 19:45 IMPRESSION: No acute process. Subtle degenerative change in the lateral compartment. Carotid Doppler Study 09/21/20 00:00 IMPRESSION: NO HEMODYNAMICALLY SIGNIFICANT STENOSIS. Head MRI 09/21/20 00:00 IMPRESSION: 1. SMALL FOCAL AREAS OF RESTRICTED DIFFUSION IN THE RIGHT FRONTAL LOBE AND SUPERIOR LEFT FRONTAL LOBE CONSISTENT WITH ACUTE LACUNAR INFARCTS. 2. ATROPHY AND CHRONIC MICRO-VASCULAR ISCHEMIC CHANGES. EVIDENCE OF ACUTE STROKE: YES. RIGHT MCA AND LEFT UMA. Head CT 09/21/20 00:26 IMPRESSION: 1. No acute intracranial abnormality by CT criteria. This exam was performed according to our departmental dose-optimization program, which includes automated exposure control, adjustment of the mA and/or kV according to patient size and/or use of iterative reconstruction technique. Assessment and Plan - Diagnosis (1) Acute on chronic respiratory failure with hypoxia Is this a current diagnosis for this admission?: Yes (2) COPD exacerbation Is this a current diagnosis for this admission?: Yes (3) Acute on chronic diastolic heart failure Is this a current diagnosis for this admission?: Yes (4) Acute lacunar infarction Is this a current diagnosis for this admission?: Yes (5) Hypertension Qualifiers: Hypertension type: essential hypertension Qualified Code(s): I10 - Essential (primary) hypertension Is this a current diagnosis for this admission?: Yes (6) Right leg weakness Is this a current diagnosis for this admission?: Yes (7) Severe pulmonary arterial systolic hypertension Is this a current diagnosis for this admission?: Yes (8) Tricuspid regurgitation Qualifiers: Cardiac valve disease etiology: etiology unspecified Qualified Code(s): I07.1 - Rheumatic tricuspid insufficiency Is this a current diagnosis for this admission?: Yes - Plan Summary Summary: 09/21/2020 I spent approximately 30 minutes with the patient and her son. The majority of it was regarding her current illnesses Echocardiogram revealed an acute diastolic heart failure-we will adjust medication regimen accordingly She has a history of a carotid endarterectomy or atherectomy. I explained the use of statin therapy. The patient states she had diarrhea with statin therapy but I think she confuse this with a history of using Metformin. We will need aspirin, statin therapy, good control of blood pressure and fay betes. She thinks telmisartan caused her stroke. She is currently on losartan. They asked about Entresto but her ejection fraction is well above the threshold. Physical therapy did work with her. She is a week but her goal is home with home health and therapy. She did cough when she took a drink and I will ask speech therapy to see her. 09/22/2020 Acute ischemic bilateral lacunar infarct-by the time the patient presented to the emergency department she was outside of the window for TPA and even if stroke alert was called in the emergency department she still would have been outside the window. She continues to work with physical therapy. Due to the significant weakness in the right leg short-term rehab is suggested. Heart failure is actually acute on chronic diastolic. There is also severe pulmonary hypertension with tricuspid regurgitation. Cardiology will see the patient tomorrow. We discussed the possibility of going to a pulmonary hypertension specialty clinic unfortunately they are not local. One is in [place] and there are 1 or 2 in the [facility] area. Accu-Cheks are still higher than desired. I will increase the Lantus. Speech therapy did evaluate the patient and there is no evidence of dysphagia. 09/23/2020 Bilateral infarcts-continuing with physical therapy. Will need short-term rehab due to predominantly right leg weakness. Hypertension-blood pressure is increasing and so I have added back amlodipine and losartan in place of her telmisartan. Diastolic heart failure-the patient is on 40 mg IV daily. We will need to begin switching to an oral regimen in anticipation of transfer to alf. Severe pulmonary hypertension-continue current regimen. I did discuss with the patient's daughter that at 85 years old there is not much to be done except medication management. Diabetes-I did find out today that glimepiride was not on her med rec. We have started her glimepiride 4 mg daily. We will make adjustments in her insulin regimen accordingly. I did speak to the patient's daughter Lidia who is a nurse. We reviewed the patient's progress as well as medication regimen on plans for disposition. She will continue to support short-term rehab with her mother and brother. 09/24/2020 The patient son was at the bedside. Bilateral lacunar infarcts-continue physical therapy. Accepted at short-term rehab however awaiting Covid results. Unfortunately they do not take patients on the weekends and so she will be here through the weekend. We will continue therapy. Hypertension-she did have her own antihypertensive telmisartan/amlodipine. She is back on the medication as she had it on her. The losartan/hydrochlorothiazide combination was stopped last evening. On her own medication regimen her blood pressure is much improved. Furosemide dosing has moved to oral formulation as we anticipate discharge soon. Currently not symptomatic for heart failure. Pulmonary hypertension with COPD-I have started her on Brio Ellipta. Nebulizer treatments available if needed. Continue diuresis. Diabetes-adjusting insulin daily. I have increased the premeal fixed dose. The steroids certainly will interfere and we will need to adjust the medication consistently based on the Accu-Cheks. The patient may very well need home oxygen therapy after this episode. The combination of severe pulmonary hypertension with severe COPD and diastolic heart failure make this extremely likely. Her son actually feels that she would have benefited from being on oxygen already. Will defer to the short-term rehab facility to arrange for oxygen if clinically appropriate. 09/25/2020 Patient is feeling comfortable. Still on 3.5 L nasal cannula. Continue Breo and slow prednisone taper. Continuing with negative fluid balance. Have switched IV Lasix to p.o. Lasix. Continue to monitor electrolytes. Back on the telmisartan amlodipine her blood pressure is improved. Continue to monitor. The last several Accu-Cheks have been under 150. Will monitor closely. Acute stroke-continue aspirin therapy. Continue physical therapy. The most sig nificant deficit is the right leg. The patient will benefit from short-term rehab. - Time Time Spent with patient: 15-24 minutes Medications reviewed and adjusted accordingly: Yes [facility]ticipated [facility] Anticipated Discharge Timeframe: when bed available
[2020-09-25] MEDS ORDERED: FAMOTIDINE 20 MG TABLET PO SCH (10:00)
[2020-09-25] MEDS: INSULIN REG, HUMAN 100 UNIT/ML 3 ML VIAL (PYX) SUBCUT SCH ×4 (10:33→22:27)
[2020-09-25] MEDS: FUROSEMIDE 80 MG TABLET PO SCH (11:21)
[2020-09-25] MEDS: METOPROLOL SUCCINATE 25 MG TAB.SR.24H PO SCH (11:21)
[2020-09-25] MEDS: ASPIRIN 81 MG TABLET, CHEWABLE PO SCH (11:21)
[2020-09-25] MEDS: ACETAZOLAMIDE 250 MG TABLET PO SCH ×2 (11:21→22:25)
[2020-09-25] MEDS: FLUTICASONE NASAL SPRAY 50 MCG/SPRY 120 SPRAY/16 GM NASL SCH (11:22)
[2020-09-25] MEDS: PREDNISONE 20 MG TABLET PO SCH (11:22)
[2020-09-25] MEDS: FLUTICASONE/VILANTEROL 100-25 MCG/DOSE IH SCH (11:23)
[2020-09-25] MEDS: GABAPENTIN 100 MG CAPSULE PO SCH ×3 (11:23→22:31)
[2020-09-25] MEDS: ENOXAPARIN SODIUM INJ 40 MG/0.4 ML DISP.SYRIN SUBCUT SCH (11:24)
[2020-09-25] MEDS: GLIMEPIRIDE 4 MG TABLET PO SCH (13:59)
[2020-09-25] MEDS: ATORVASTATIN CALCIUM 80 MG TABLET PO SCH ×2 (22:26→22:37)
[2020-09-25] MEDS: INSULIN GLARGINE,HUM.REC.ANLOG 1,000 UNIT/10 ML VIAL SUBCUT SCH (22:26)
[2020-09-26] MEDS: PANTOPRAZOLE SODIUM 40 MG TABLET.DR PO SCH (05:41)
[2020-09-26 05:42] LABS: ABSOLUTE EOSINOPHILS # (AUTO) 0.1 10^3/uL (0.0-0.6); ABSOLUTE LYMPHOCYTES (AUTO) 2.3 10^3/uL (0.5-4.7); ABSOLUTE MONOCYTES (AUTO) 0.8 10^3/uL (0.1-1.4); ABSOLUTE NEUT (AUTO) 8.3 10^3/uL (1.7-8.2); BASOPHILS % (AUTO) 0.2 % (0-2); EOSINOPHILS % (AUTO) 0.5 % (0-6); HEMATOCRIT 49.9 % (36.0-47.0); HEMOGLOBIN 16.2 g/dL (12.0-15.5); LYMPHOCYTES % (AUTO) 19.7 % (13-45); MEAN CORPUSCULAR HEMOGLOBIN 27.5 pg (27.0-33.4); MEAN CORPUSCULAR HGB CONC 32.4 g/dL (32.0-36.0); MEAN CORPUSCULAR VOLUME 85 fl (80-97); MONOCYTES % (AUTO) 7.1 % (3-13); PLATELET COUNT 159 10^3/uL (150-450); RED BLOOD COUNT 5.87 10^6/uL (3.72-5.28); RED CELL DISTRIBUTION WIDTH 15.6 % (11.5-14.0); SEGMENTED NEUTROPHILS % (AUTO) 72.5 % (42-78); TOTAL CELLS COUNTED % (AUTO) 100 %; WHITE BLOOD COUNT 11.5 10^3/uL (4.0-10.5)
[2020-09-26 06:14] LABS: ANION GAP 11 (5-19); BLOOD UREA NITROGEN 34 mg/dL (7-20); CALCIUM 9.6 mg/dL (8.4-10.2); CARBON DIOXIDE 26 mmol/L (22-30); CHLORIDE 101 mmol/L (98-107); GLUCOSE 150 mg/dL (75-110); POTASSIUM 4.2 mmol/L (3.6-5.0)
[2020-09-26] MEDS: INSULIN REG, HUMAN 100 UNIT/ML 3 ML VIAL (PYX) SUBCUT SCH ×4 (08:00→21:45)
--- NOTE | 2020-09-26 10:24 | PDOC PROGRESS REPORT ---
Subjective Date:: 09/26/20 Subjective:: The patient expressed concern about atorvastatin. She read that it is a carcino gen and wants me to stop it. Considering her age and advanced disease I have no problem with that. Reason For Visit: CONGESTIVE HEART FAILURE,ACUTE AND CHRONIC Physical Exam Vital Signs: Temp Pulse Resp BP Pulse Ox 98.2 F 57 L 19 145/77 H 95 09/26/20 08:24 09/26/20 08:24 09/26/20 08:24 09/26/20 08:24 09/26/20 08:24 Intake & Output 09/25/20 09/26/20 09/27/20 06:59 06:59 06:59 Intake Total 920 1230 Output Total 1650 2100 Balance -730 -870 Weight 68.4 kg 67 kg General appearance: PRESENT: no acute distress, cooperative, well-developed Head exam: PRESENT: atraumatic, normocephalic Ear exam: PRESENT: normal external ear exam. ABSENT: bleeding, drainage Mouth exam: PRESENT: dry mucosa, tongue midline Neck exam: ABSENT: carotid bruit, JVD, lymphadenopathy, tracheostomy Respiratory exam: PRESENT: rales - Fine rales at bases, symmetrical, unlabored. ABSENT: accessory muscle use, rhonchi, tachypnea, wheezes Cardiovascular exam: PRESENT: RRR, +S1, +S2. ABSENT: bradycardia, diastolic murmur, irregular rhythm, systolic murmur, tachycardia GI/Abdominal exam: PRESENT: normal bowel sounds, soft. ABSENT: distended, tenderness Rectal exam: PRESENT: deferred Gentrourinary exam: ABSENT: indwelling catheter Extremities exam: ABSENT: pedal edema Musculoskeletal exam: PRESENT: normal inspection, other - Decreased muscle mass. ABSENT: ambulatory, deformity Neurological exam: PRESENT: alert, awake, oriented to person, oriented to place, oriented to time, oriented to situation, CN II-XII grossly intact. ABSENT: altered Psychiatric exam: PRESENT: appropriate affect. ABSENT: agitated, anxious Focused psych exam: ABSENT: delusional, paranoid, restlessness Skin exam: PRESENT: dry, warm. ABSENT: rash Results Laboratory Results: 09/26/20 05:04 09/26/20 05:04 09/26/20 09/26/20 05:04 05:04 WBC 11.5 H RBC 5.87 H Hgb 16.2 H Hct 49.9 H MCV 85 MCH 27.5 MCHC 32.4 RDW 15.6 H Plt Count 159 Seg Neutrophils % 72.5 Sodium 138.1 Potassium 4.2 Chloride 101 Carbon Dioxide 26 Anion Gap 11 BUN 34 H Creatinine 0.90 Est GFR ( Amer) > 60 Glucose 150 H Calcium 9.6 Magnesium 2.1 09/20/20 17:52 Troponin I < 0.012 NT-Pro-B Natriuret Pep 3930 H Impressions: Chest X-Ray 09/20/20 19:45 IMPRESSION: No acute process. No significant interval change. Hip/Pelvis X-Ray 09/20/20 19:45 IMPRESSION: Subtle degenerative change of the right hip. No fracture. Knee X-Ray 09/20/20 19:45 IMPRESSION: No acute process. Subtle degenerative change in the lateral compartment. Carotid Doppler Study 09/21/20 00:00 IMPRESSION: NO HEMODYNAMICALLY SIGNIFICANT STENOSIS. Head MRI 09/21/20 00:00 IMPRESSION: 1. SMALL FOCAL AREAS OF RESTRICTED DIFFUSION IN THE RIGHT FRONTAL LOBE AND SUPERIOR LEFT FRONTAL LOBE CONSISTENT WITH ACUTE LACUNAR INFARCTS. 2. ATROPHY AND CHRONIC MICRO-VASCULAR ISCHEMIC CHANGES. EVIDENCE OF ACUTE STROKE: YES. RIGHT MCA AND LEFT UMA. Head CT 09/21/20 00:26 IMPRESSION: 1. No acute intracranial abnormality by CT criteria. This exam was performed according to our departmental dose-optimization program, which includes automated exposure control, adjustment of the mA and/or kV according to patient size and/or use of iterative reconstruction technique. Assessment and Plan - Diagnosis (1) Acute on chronic respiratory failure with hypoxia Is this a current diagnosis for this admission?: Yes (2) COPD exacerbation Is this a current diagnosis for this admission?: Yes (3) Acute on chronic diastolic heart failure Is this a current diagnosis for this admission?: Yes (4) Acute lacunar infarction Is this a current diagnosis for this admission?: Yes (5) Hypertension Qualifiers: Hypertension type: essential hypertension Qualified Code(s): I10 - Essential (primary) hypertension Is this a current diagnosis for this admission?: Yes (6) Right leg weakness Is this a current diagnosis for this admission?: Yes (7) Severe pulmonary arterial systolic hypertension Is this a current diagnosis for this admission?: Yes (8) Tricuspid regurgitation Qualifiers: Cardiac valve disease etiology: etiology unspecified Qualified Code(s): I07.1 - Rheumatic tricuspid insufficiency Is this a current diagnosis for this admission?: Yes - Plan Summary Summary: 09/21/2020 I spent approximately 30 minutes with the patient and her son. The majority of it was regarding her current illnesses Echocardiogram revealed an acute diastolic heart failure-we will adjust medication regimen accordingly She has a history of a carotid endarterectomy or atherectomy. I explained the use of statin therapy. The patient states she had diarrhea with statin therapy but I think she confuse this with a history of using Metformin. We will need aspirin, statin therapy, good control of blood pressure and diabetes. She thinks telmisartan caused her stroke. She is currently on losartan. They asked about Entresto but her ejection fraction is well above the threshold. Physical therapy did work with her. She is a week but her goal is home with home health and therapy. She did cough when she took a drink and I will ask speech therapy to see her. 09/22/2020 Acute ischemic bilateral lacunar infarct-by the time the patient presented to the emergency department she was outside of the window for TPA and even if stroke alert was called in the emergency department she still would have been outside the window. She continues to work with physical therapy. Due to the significant weakness in the right leg short-term rehab is suggested. Heart failure is actually acute on chronic diastolic. There is also severe pulmonary hypertension with tricuspid regurgitation. Cardiology will see the pa césarnt tomorrow. We discussed the possibility of going to a pulmonary hypertension specialty clinic unfortunately they are not local. One is in [place] and there are 1 or 2 in the [facility] area. Accu-Cheks are still higher than desired. I will increase the Lantus. Speech therapy did evaluate the patient and there is no evidence of dysphagia. 09/23/2020 Bilateral infarcts-continuing with physical therapy. Will need short-term rehab due to predominantly right leg weakness. Hypertension-blood pressure is increasing and so I have added back amlodipine and losartan in place of her telmisartan. Diastolic heart failure-the patient is on 40 mg IV daily. We will need to begin switching to an oral regimen in anticipation of transfer to [facility]. Severe pulmonary hypertension-continue current regimen. I did discuss with the patient's daughter that at 85 years old there is not much to be done except medication management. Diabetes-I did find out today that glimepiride was not on her med rec. We have started her glimepiride 4 mg daily. We will make adjustments in her insulin regimen accordingly. I did speak to the patient's daughter Lidia who is a nurse. We reviewed the patient's progress as well as medication regimen on plans for disposition. She will continue to support short-term rehab with her mother and brother. 09/24/2020 The patient son was at the bedside. Bilateral lacunar infarcts-continue physical therapy. Accepted at short-term rehab however awaiting Covid results. Unfortunately they do not take patients on the weekends and so she will be here through the weekend. We will continue therapy. Hypertension-she did have her own antihypertensive telmisartan/amlodipine. She is back on the medication as she had it on her. The losartan/hydrochloro thiazide combination was stopped last evening. On her own medication regimen her blood pressure is much improved. Furosemide dosing has moved to oral formulation as we anticipate discharge soon. Currently not symptomatic for heart failure. Pulmonary hypertension with COPD-I have started her on Brio Ellipta. Nebulizer treatments available if needed. Continue diuresis. Diabetes-adjusting insulin daily. I have increased the premeal fixed dose. The steroids certainly will interfere and we will need to adjust the medication consistently based on the Accu-Cheks. The patient may very well need home oxygen therapy after this episode. The combination of severe pulmonary hypertension with severe COPD and diastolic heart failure make this extremely likely. Her son actually feels that she would have benefited from being on oxygen already. Will defer to the short-term rehab facility to arrange for oxygen if clinically appropriate. 09/25/2020 Patient is feeling comfortable. Still on 3.5 L nasal cannula. Continue Breo and slow prednisone taper. Continuing with negative fluid balance. Have switched IV Lasix to p.o. Lasix. Continue to monitor electrolytes. Back on the telmisartan amlodipine her blood pressure is improved. Continue to monitor. The last several Accu-Cheks have been under 150. Will monitor closely. Acute stroke-continue aspirin therapy. Continue physical therapy. The most significant deficit is the right leg. The patient will benefit from short-term rehab. 09/26/2020 Patient expressed significant concerns regarding atorvastatin. I will hold all statins's she has read that they are carcinogenic. This is unfortunate considering her strokes. Current medication regimen exhibits good control. Diabetes-no changes in the treatment plan considering Accu-Cheks are well controlled. We will continue the aspirin for stroke. We are waiting for a bed at a short-t [facility] rehab to maximize recovery especially with her right leg. Pulmonary hypertension-no specific treatment at this time Heart failure-on 80 mg daily her hemoglobin appears to be up slightly. This cou ld be some hemoconcentration. She was initially on 40 mg of Lasix at home I will decrease her daily dose to 60 mg. Continue to monitor renal function and electrolytes - Time Time Spent with patient: 15-24 minutes Medications reviewed and adjusted accordingly: Yes Anticipated Discharge Disposition: Nursing Home Facility Anticipated Discharge Timeframe: within 24 hours
[2020-09-26] MEDS: GABAPENTIN 100 MG CAPSULE PO SCH ×2 (10:46→21:45)
[2020-09-26] MEDS: METOPROLOL SUCCINATE 25 MG TAB.SR.24H PO SCH (10:47)
[2020-09-26] MEDS: PREDNISONE 20 MG TABLET PO SCH (10:47)
[2020-09-26] MEDS: GLIMEPIRIDE 4 MG TABLET PO SCH (10:47)
[2020-09-26] MEDS: ASPIRIN 81 MG TABLET, CHEWABLE PO SCH (10:47)
[2020-09-26] MEDS: ENOXAPARIN SODIUM INJ 40 MG/0.4 ML DISP.SYRIN SUBCUT SCH (10:48)
[2020-09-26] MEDS: FLUTICASONE NASAL SPRAY 50 MCG/SPRY 120 SPRAY/16 GM NASL SCH (11:13)
[2020-09-26] MEDS: ACETAZOLAMIDE 250 MG TABLET PO SCH ×2 (11:15→21:44)
[2020-09-26] MEDS: FLUTICASONE/VILANTEROL 100-25 MCG/DOSE IH SCH (11:17)
[2020-09-26] MEDS: ATORVASTATIN CALCIUM 80 MG TABLET PO SCH (21:40)
[2020-09-26] MEDS: INSULIN GLARGINE,HUM.REC.ANLOG 1,000 UNIT/10 ML VIAL SUBCUT SCH (21:45)
[2020-09-27] MEDS: PANTOPRAZOLE SODIUM 40 MG TABLET.DR PO SCH (05:46)
[2020-09-27 05:52] LABS: HEMATOCRIT 51.2 % (36.0-47.0); HEMOGLOBIN 16.4 g/dL (12.0-15.5); MEAN CORPUSCULAR HEMOGLOBIN 27.4 pg (27.0-33.4); MEAN CORPUSCULAR HGB CONC 32.1 g/dL (32.0-36.0); MEAN CORPUSCULAR VOLUME 85 fl (80-97); PLATELET COUNT 165 10^3/uL (150-450); RED BLOOD COUNT 6.01 10^6/uL (3.72-5.28); RED CELL DISTRIBUTION WIDTH 15.7 % (11.5-14.0); WHITE BLOOD COUNT 12.5 10^3/uL (4.0-10.5)
[2020-09-27 06:08] LABS: ANION GAP 7 (5-19); BLOOD UREA NITROGEN 43 mg/dL (7-20); CALCIUM 9.9 mg/dL (8.4-10.2); CARBON DIOXIDE 27 mmol/L (22-30); CHLORIDE 104 mmol/L (98-107); GLUCOSE 94 mg/dL (75-110); POTASSIUM 4.4 mmol/L (3.6-5.0)
[2020-09-27] MEDS: INSULIN REG, HUMAN 100 UNIT/ML 3 ML VIAL (PYX) SUBCUT SCH ×2 (08:23→12:35)
[2020-09-27] MEDS ORDERED: AMLODIPINE BESYLATE 10 MG TABLET PO SCH (10:00)
[2020-09-27] MEDS ORDERED: LOSARTAN POTASSIUM 50 MG TABLET PO SCH (10:00)
[2020-09-27] MEDS ORDERED: ENOXAPARIN SODIUM INJ 30 MG/0.3 ML DISP.SYRIN SUBCUT SCH (10:00)
[2020-09-27] MEDS: ACETAZOLAMIDE 250 MG TABLET PO SCH (10:14)
[2020-09-27] MEDS: GLIMEPIRIDE 4 MG TABLET PO SCH (10:14)
[2020-09-27] MEDS: METOPROLOL SUCCINATE 25 MG TAB.SR.24H PO SCH (10:14)
[2020-09-27] MEDS: PREDNISONE 20 MG TABLET PO SCH (10:14)
[2020-09-27] MEDS: GABAPENTIN 100 MG CAPSULE PO SCH (10:14)
[2020-09-27] MEDS: ASPIRIN 81 MG TABLET, CHEWABLE PO SCH (10:14)
[2020-09-27] MEDS: FUROSEMIDE 80 MG TABLET PO SCH (10:14)
[2020-09-27] MEDS: FLUTICASONE NASAL SPRAY 50 MCG/SPRY 120 SPRAY/16 GM NASL SCH (10:15)
[2020-09-27] MEDS: FLUTICASONE/VILANTEROL 100-25 MCG/DOSE IH SCH (10:15)
--- NOTE | 2020-09-27 10:39 | PDOC TRANSFER SUMMARY ---
Impression - Admit/DC Date/PCP Admission Date/Primary Care Provider: 09/21/20 02:43 RAMILA ESCALONA MD Discharge Date: 09/27/20 - Discharge Diagnosis (1) Acute on chronic respiratory failure with hypoxia Is this a current diagnosis for this admission?: Yes (2) COPD exacerbation Is this a current diagnosis for this admission?: Yes (3) Acute on chronic diastolic heart failure Is this a current diagnosis for this admission?: Yes (4) Acute lacunar infarction Is this a current diagnosis for this admission?: Yes (5) Hypertension Is this a current diagnosis for this admission?: Yes (6) Right leg weakness Is this a current diagnosis for this admission?: Yes (7) Severe pulmonary arterial systolic hypertension Is this a current diagnosis for this admission?: Yes (8) Tricuspid regurgitation Is this a current diagnosis for this admission?: Yes - Assessment Summary: 09/21/2020 I spent approximately 30 minutes with the patient and her son. The majority of it was regarding her current illnesses Echocardiogram revealed an acute diastolic heart failure-we will adjust medication regimen accordingly She has a history of a carotid endarterectomy or atherectomy. I explained the use of statin therapy. The patient states she had diarrhea with statin therapy but I think she confuse this with a history of using Metformin. We will need aspirin, statin therapy, good control of blood pressure and diabetes. She thinks telmisartan caused her stroke. She is currently on losartan. They asked about Entresto but her ejection fraction is well above the threshold. Physical therapy did work with her. She is a week but her goal is home with home health and therapy. She did cough when she took a drink and I will ask speech therapy to see her. 09/22/2020 Acute ischemic bilateral lacunar infarct-by the time the patient presented to the emergency department she was outside of the window for TPA and even if stroke alert was called in the emergency department she still would have been outside the window. She continues to work with physical therapy. Due to the significant weakness in the right leg short-term rehab is suggested. Heart failure is actually acute on chronic diastolic. There is also severe pulmonary hypertension with tricuspid regurgitation. Cardiology will see the patient tomorrow. We discussed the possibility of going to a pulmonary hypertension specialty clinic unfortunately they are not local. One is in [place] and there are 1 or 2 in the [place] area. Accu-Cheks are still higher than desired. I will increase the Lantus. Speech therapy did evaluate the patient and there is no evidence of dysphagia. 09/23/2020 Bilateral infarcts-continuing with physical therapy. Will need short-term rehab due to predominantly right leg weakness. Hypertension-blood pressure is increasing and so I have added back amlodipine and losartan in place of her telmisartan. Diastolic heart failure-the patient is on 40 mg IV daily. We will need to begin switching to an oral regimen in anticipation of transfer to custodial. Severe pulmonary hypertension-continue current regimen. I did discuss with the patient's daughter that at 85 years old there is not much to be done except medication management. Diabetes-I did find out today that glimepiride was not on her med rec. We have started her glimepiride 4 mg daily. We will make adjustments in her insulin regimen accordingly. I did speak to the patient's daughter Lidia who is a nurse. We reviewed the patient's progress as well as medication regimen on plans for disposition. She will continue to support short-term rehab with her mother and brother. 09/24/2020 The patient son was at the bedside. Bilateral lacunar infarcts-continue physical therapy. Accepted at short-term rehab however awaiting Covid results. Unfortunately they do not take patients on the weekends and so she will be here through the weekend. We will continue therapy. Hypertension-she did have her own antihypertensive telmisartan/amlodipine. She is back on the medication as she had it on her. The losartan/hydroc hlorothiazide combination was stopped last evening. On her own medication regimen her blood pressure is much improved. Furosemide dosing has moved to oral formulation as we anticipate discharge soon. Currently not symptomatic for heart failure. Pulmonary hypertension with COPD-I have started her on Brio Ellipta. Nebulizer treatments available if needed. Continue diuresis. Diabetes-adjusting insulin daily. I have increased the premeal fixed dose. The steroids certainly will interfere and we will need to adjust the medication consistently based on the Accu-Cheks. The patient may very well need home oxygen therapy after this episode. The combination of severe pulmonary hypertension with severe COPD and diastolic heart failure make this extremely likely. Her son actually feels that she would have benefited from being on oxygen already. Will defer to the short-term rehab facility to arrange for oxygen if clinically appropriate. 09/25/2020 Patient is feeling comfortable. Still on 3.5 L nasal cannula. Continue Breo and slow prednisone taper. Continuing with negative fluid balance. Have switched IV Lasix to p.o. Lasix. Continue to monitor electrolytes. Back on the telmisartan amlodipine her blood pressure is improved. Continue to monitor. The last several Accu-Cheks have been under 150. Will monitor closely. Acute stroke-continue aspirin therapy. Continue physical therapy. The most significant deficit is the right leg. The patient will benefit from short-term rehab. 09/26/2020 Patient expressed significant concerns regarding atorvastatin. I will hold all statins's she has read that they are carcinogenic. This is unfortunate considering her strokes. Current medication regimen exhibits good control. Diabetes-no changes in the treatment plan considering Accu-Cheks are well controlled. We will continue the aspirin for stroke. We are waiting for a bed at a short- term rehab to maximize recovery especially with her right leg. Pulmonary hypertension-no specific treatment at this time Heart failure-on 80 mg daily her hemoglobin appears to be up slightly. This could be some hemoconcentration. She was initially on 40 mg of Lasix at home I will decrease her daily dose to 60 mg. Continue to monitor renal function and electrolytes 09/27/2020 Stable for transfer to custodial facility for short-term rehab - Additional Information Resuscitation Status: Full Code Discharge Diet: Cardiac, Diabetic Discharge Activity: Activity As Tolerated, Balance Activity w/Rest Referrals: [facility] [Outside] Home Medications: Fluticasone Propionate [Flonase Nasal [place] 50 Mcg/[place] 16 gm] 1 spray NASL DAILY 09/21/20 Insulin Glargine,Hum.rec.anlog [Lantus Insulin 100 Unit/mL Insulin Pen] 14 unit SUBCUT QPM 09/21/20 Metoprolol Succinate [Toprol Xl 25 mg Tab.sr] 25 mg PO DAILY 09/21/20 Omeprazole 20 mg PO DAILY 09/21/20 Telmisartan/Amlodipine [Telmisartan-Amlodipine 40-10] 0.5 each PO DAILY 09/21/20 Umeclidinium Brm/Vilanterol Tr [Anoro Ellipta 62.5-25 Mcg INH] 1 each IH DAILY 09/21/20 Glimepiride [Amaryl 4 mg Tablet] 4 mg PO DAILY 09/23/20 Acetaminophen [Tylenol 325 mg Tablet] 650 mg PO Q4HP PRN tablet 09/27/20 Aspirin [Aspirin 81 mg Chewable Tablet] 81 mg PO DAILY tab.chew 09/27/20 Atorvastatin Calcium [Lipitor 80 mg Tablet] 80 mg PO QHS tablet 09/27/20 Furosemide [Lasix 80 mg Tablet] 80 mg PO DAILY tablet 09/27/20 Gabapentin [Neurontin 100 mg Capsule] 200 mg PO Q12 capsule 09/27/20 Glimepiride [Amaryl 4 mg Tablet] 4 mg PO DAILY tablet 09/27/20 Ipratropium/Albuterol Sulfate [Duoneb 3 ml Ampul] 3 ml NEB RTQ4HP PRN vial.neb 09/27/20 Mag Hydrox/Al Hydrox/Simeth [Maalox Plus Susp 30 Udcup] 30 ml PO Q6HP PRN udc 09/27/20 Metoprolol Succinate [Toprol Xl 25 mg Tab.sr] 25 mg PO DAILY tab.sr.24h 09/27/20 Prednisone [Deltasone 20 mg Tablet] 20 mg PO DAILY tablet 09/27/20 History of Present Illiness History of Present Illness: DAVIN HERNANDEZ is a 85 year old female with a history of hypertension, COPD, heart failure who was brought in by EMS after she was found lying in her kitchen floor. Per EMS report her oxygen saturation was 76% on room air when she was initially found. Currently patient is saturating mid 90s on 3 L of intranasal oxygen. She reports about 2 days back when she tried to go to the bathroom her legs gave up on her and has been having weakness of her lower extremities. Since the incident she has been able to regain strength on the left lower extremity but the right lower extremity has been weaker. She denies weakness in any of her upper extremity, facial droop, change in her speech, difficulty with swallowing, loss of consciousness. She also states that she has been missing her Lasix for the past week stating that it has been making her pee a lot and waking her up at night. She has been feeling more and more short of breath. She denies any nausea, vomiting, abdominal pain, or any change in her bowel or urinary habits. Hospital Course Hospital Course: As above Physical Exam Vital Signs: Temp Pulse Resp BP Pulse Ox 97.5 F 59 L 18 141/76 H 95 09/27/20 08:35 09/27/20 07:22 09/27/20 07:22 09/27/20 07:22 09/27/20 07:22 Intake & Output 09/26/20 09/27/20 09/28/20 06:59 06:59 06:59 Intake Total 1230 1227 Output Total 2100 1025 Balance -870 202 Weight 67 kg 66.6 kg General appearance: PRESENT: cooperative, well-developed, well-nourished Head exam: PRESENT: atraumatic, normocephalic Mouth exam: PRESENT: moist, tongue midline Respiratory exam: PRESENT: rales - Faint rales bilateral bases, symmetrical, unlabored. ABSENT: rhonchi, tachypnea, wheezes Cardiovascular exam: PRESENT: RRR, +S1, +S2 GI/Abdominal exam: PRESENT: normal bowel sounds, soft. ABSENT: distended, t enderness Rectal exam: PRESENT: deferred Gentrourinary exam: ABSENT: indwelling catheter Extremities exam: ABSENT: pedal edema Musculoskeletal exam: PRESENT: other - Right leg weakness secondary to stroke.. ABSENT: deformity, dislocation Neurological exam: PRESENT: alert, awake, oriented to person, oriented to place, oriented to time, oriented to situation, CN II-XII grossly intact. ABSENT: altered Psychiatric exam: PRESENT: appropriate affect. ABSENT: agitated, anxious Focused psych exam: ABSENT: delusional, paranoid, restlessness Results Laboratory Results: WBC 12.5 10^3/uL (4.0-10.5) H 09/27/20 05:32 RBC 6.01 10^6/uL (3.72-5.28) H 09/27/20 05:32 Hgb 16.4 g/dL (12.0-15.5) H 09/27/20 05:32 Hct 51.2 % (36.0-47.0) H 09/27/20 05:32 MCV 85 fl (80-97) 09/27/20 05:32 MCH 27.4 pg (27.0-33.4) 09/27/20 05:32 MCHC 32.1 g/dL (32.0-36.0) 09/27/20 05:32 RDW 15.7 % (11.5-14.0) H 09/27/20 05:32 Plt Count 165 10^3/uL (150-450) 09/27/20 05:32 Lymph % (Auto) 19.7 % (13-45) 09/26/20 05:04 [place] % (Auto) 7.1 % (3-13) 09/26/20 05:04 Eos % (Auto) 0.5 % (0-6) 09/26/20 05:04 Baso % (Auto) 0.2 % (0-2) 09/26/20 05:04 Absolute Neuts (auto) 8.3 10^3/uL (1.7-8.2) H 09/26/20 05:04 Absolute Lymphs (auto) 2.3 10^3/uL (0.5-4.7) 09/26/20 05:04 Absolute Monos (auto) 0.8 10^3/uL (0.1-1.4) 09/26/20 05:04 Absolute Eos (auto) 0.1 10^3/uL (0.0-0.6) 09/26/20 05:04 Absolute Basos (auto) 0.0 10^3/uL (0.0-0.2) 09/26/20 05:04 Seg Neutrophils % 72.5 % (42-78) 09/26/20 05:04 Sodium 137.6 mmol/L (137-145) 09/27/20 05:32 Potassium 4.4 mmol/L (3.6-5.0) 09/27/20 05:32 Chloride 104 mmol/L (98-107) 09/27/20 05:32 Carbon Dioxide 27 mmol/L (22-30) 09/27/20 05:32 Anion Gap 7 (5-19) 09/27/20 05:32 BUN 43 mg/dL (7-20) H 09/27/20 05:32 Creatinine 1.31 mg/dL (0.52-1.25) H 09/27/20 05:32 Est GFR ( Amer) 46 (>60) L 09/27/20 05:32 Est GFR (MDRD) Non-Af 38 (>60) L 09/27/20 05:32 Glucose 94 mg/dL (75-110) 09/27/20 05:32 POC Glucose 79 mg/dL (70-110) 09/27/20 07:22 Calcium 9.9 mg/dL (8.4-10.2) 09/27/20 05:32 Magnesium 2.3 mg/dL (1.6-2.3) 09/27/20 05:32 Total Bilirubin 1.0 mg/dL (0.2-1.3) 09/20/20 17:52 Direct Bilirubin 0.5 mg/dL (0.0-0.4) H 09/20/20 17:52 Neonat Total Bilirubin Not Reportable 09/20/20 17:52 Neonat Direct Bilirubin Not Reportable 09/20/20 17:52 Neonat Indirect Bili Not Reportable 09/20/20 17:52 AST 28 U/L (14-36) 09/20/20 17:52 ALT 14 U/L (<35) 09/20/20 17:52 Alkaline Phosphatase 117 U/L (38-126) 09/20/20 17:52 Troponin I < 0.012 ng/mL 09/20/20 17:52 NT-Pro-B Natriuret Pep 3930 pg/mL (<450) H 09/20/20 17:52 Total Protein 7.1 g/dL (6.3-8.2) 09/20/20 17:52 Albumin 3.9 g/dL (3.5-5.0) 09/20/20 17:52 Triglycerides 99 mg/dL (<150) 09/22/20 06:30 Cholesterol 161.00 mg/dL (0-200) 09/22/20 06:30 LDL Cholesterol Direct 100 mg/dL (<100) 09/22/20 06:30 VLDL Cholesterol 20.0 mg/dL (10-31) 09/22/20 06:30 HDL Cholesterol 46 mg/dL (>40) 09/22/20 06:30 Urine Color YELLOW 09/20/20 20:35 Urine Appearance SLIGHTLY-CLOUDY 09/20/20 20:35 Urine pH 6.0 (5.0-9.0) 09/20/20 20:35 Ur Specific [place] 1.012 09/20/20 20:35 Urine Protein 100 mg/dL (NEGATIVE) H 09/20/20 20:35 Urine Glucose (UA) 50 mg/dL (NEGATIVE) H 09/20/20 20:35 Urine Ketones NEGATIVE mg/dL (NEGATIVE) 09/20/20 20:35 Urine Blood NEGATIVE (NEGATIVE) 09/20/20 20:35 Urine Nitrite (Reflex) NEGATIVE (NEGATIVE) 09/20/20 20:35 Urine Bilirubin NEGATIVE (NEGATIVE) 09/20/20 20:35 Urine Urobilinogen NEGATIVE mg/dL (<2.0) 09/20/20 20:35 Leukocyte Esterase Rfl TRACE (NEGATIVE) H 09/20/20 20:35 Urine RBC (Auto) 1 /HPF 09/20/20 20:35 Urine Bacteria (Auto) 1+ /HPF 09/20/20 20:35 Urine WBC (Reflex) 8 /HPF 09/20/20 20:35 Squamous Epi Cells Auto <1 /HPF 09/20/20 20:35 Urine Ascorbic Acid NEGATIVE (NEGATIVE) 09/20/20 20:35 COVID-19 Source See comment 09/23/20 13:40 COVID-19 (MARY LOU) Not Detected (Not Detect) 09/23/20 13:40 09/20/20 17:52 Troponin I < 0.012 NT-Pro-B Natriuret Pep 3930 H Impressions: Chest X-Ray 09/20/20 19:45 IMPRESSION: No acute process. No significant interval change. Hip/Pelvis X-Ray 09/20/20 19:45 IMPRESSION: Subtle degenerative change of the right hip. No fracture. Knee X-Ray 09/20/20 19:45 IMPRESSION: No acute process. Subtle degenerative change in the lateral compartment. Carotid Doppler Study 09/21/20 00:00 IMPRESSION: NO HEMODYNAMICALLY SIGNIFICANT STENOSIS. Head MRI 09/21/20 00:00 IMPRESSION: 1. SMALL FOCAL AREAS OF RESTRICTED DIFFUSION IN THE RIGHT FRONTAL LOBE AND SUPERIOR LEFT FRONTAL LOBE CONSISTENT WITH ACUTE LACUNAR INFARCTS. 2. ATROPHY AND CHRONIC MICRO-VASCULAR ISCHEMIC CHANGES. EVIDENCE OF ACUTE STROKE: YES. RIGHT MCA AND LEFT UMA. Head CT 09/21/20 00:26 IMPRESSION: 1. No acute intracranial abnormality by CT criteria. This exam was performed according to our departmental dose-optimization program, which includes automated exposure control, adjustment of the mA and/or kV according to patient size and/or use of iterative reconstruction technique. Plan Health Concerns: Bilateral acute lacunar infarcts. Patient declined statin therapy. Plan of Treatment: Transfer to [facility] for ongoing therapy and recovery from stroke Goals: Maximize recovery from stroke and stabilize COPD with pulmonary hypertension and chronic heart failure Time Spent: Greater than 30 Minutes Stroke Is this a Stroke Patient?: Yes Stroke Pt being discharged on Anti-thrombolytic therapy?: Yes Stroke Pt being discharged on Anti-coagulation therapy?: No Reason(s) for not prescribing Anti-coagulation therapy:: Not indicated Stroke Pt being discharged on Statins?: No Reason(s) for not prescribing Statins therapy:: Drug declined by patient Acute Heart Failure Is this a Heart Failure Patient?: Yes Documentation of LVEF assessment?: Yes LVEF: LVEF Greater Than 40% Anticoagulant Therapy: N/A Discharged on Evidence-Based Beta Blockers: Yes Discharged on ARNI?: No-Document Contraindications Reason(s) not discharged on ARNI: Other ARNI Reason - Other: Discharged on angiotensin receptor guido Discharged on ARB?: Yes Discharged on ACEI?: N/A Discharged on ARB For LVEF <35%, discharged on Aldosterone Antagonist?: N/A (LVEF > or = 35%) Follow-up Appointment scheduled within 7 days?: No, document reason - Transferring to custodial facility
[2020-09-27 12:08] VITALS: BP 115/57
== END 2020-09-27 12:52 | DRG 64 ==
LOC: ER 17:26 → EH 09-21 02:43 → 5 09-21 04:39
PROVIDERS: ADMIT Student in an Organized Health Care Education/Training Program; ATTEND Hospitalist
PROC: B24BZZ4 Ultrasonography of Heart with Aorta, Transesophageal (ICD-10-PCS; principal; 2020-09-21)
DX: I63.81 Other cerebral infarction due to occlusion or stenosis of small artery (principal); J96.21 Acute and chronic respiratory failure with hypoxia; I50.33 Acute on chronic diastolic (congestive) heart failure; G81.91 Hemiplegia, unspecified affecting right dominant side; Z20.828 Contact with and (suspected) exposure to other viral communicable diseases; I11.0 Hypertensive heart disease with heart failure; I27.21 Secondary pulmonary arterial hypertension; I07.1 Rheumatic tricuspid insufficiency; E11.9 Type 2 diabetes mellitus without complications; J43.9 Emphysema, unspecified; I63.522 Cerebral infarction due to unspecified occlusion or stenosis of left anterior cerebral artery; I63.511 Cerebral infarction due to unspecified occlusion or stenosis of right middle cerebral artery; E78.5 Hyperlipidemia, unspecified; I08.1 Rheumatic disorders of both mitral and tricuspid valves; I25.2 Old myocardial infarction; Z79.899 Other long term (current) drug therapy; Z79.4 Long term (current) use of insulin; Z79.52 Long term (current) use of systemic steroids; Z88.2 Allergy status to sulfonamides; Z88.8 Allergy status to other drugs, medicaments and biological substances
CPT/HCPCS: 36415; 70450; 70551; 71046; 80048; 80053; 80061; 81001; 82962; 83735; 83880; 84484; 85025; 85027; 87635; 93306; 93880; 96374; 99285; C9803; J1650; J1815; J1940; J2405; J3490; J7512

== ENCOUNTER 2020-11-03 14:52 | Inpatient (IN) | payer MEDICARE, OTHER ==
--- NOTE | 2020-11-03 15:21 | ER Document Report ---
ED General - General Chief Complaint: Shortness Of Breath Stated Complaint: RESPIRATORY DISTRESS Time Seen by Provider: 11/03/20 15:07 TRAVEL OUTSIDE OF THE [place] IN LAST 30 DAYS: No - HPI Notes: Patient is an 85-year-old female with a past medical history of CHF, COPD, recent stroke who presents with shortness of breath. Patient is a very poor historian. She states that she lives at home. Patient says that her oxygen was not working so she called her family doctor who told her to take aspirin and nitro and called the ambulance. Patient was hypoxic for the ambulance. They placed her on nonrebreather and she improved. From record review, it appears that patient was started on 3.5 L nasal cannula at her last admission in September and was discharged to a rehab facility. Patient is unable to tell me how much oxygen she normally wears. She denies any chest pain. No cough or cold symptoms. No recent illnesses. She states that she is not taking any blood thinners. - Related Data Allergies/Adverse Reactions: Sulfa (Sulfonamide Antibiotics) Allergy (Unknown, Verified 09/20/20 19:36) metformin Allergy (Verified 09/20/20 19:36) Past Medical History - General Information source: Patient, Emergency Med Personnel - Social History Smoking Status: Unknown if Ever Smoked Family History: Reviewed & Not Pertinent - Past Medical History Cardiac Medical History: Reports: Hx Congestive Heart Failure, Hx Heart Attack, Hx Hypercholesterolemia, Hx Hypertension - medicated Denies: Hx Coronary Artery Disease Pulmonary Medical History: Reports: Hx COPD Denies: Hx Asthma, Hx Bronchitis, Hx Pneumonia Neurological Medical History: Denies: Hx Cerebrovascular Accident, Hx Seizures Endocrine Medical History: Reports: Hx Diabetes Mellitus Type 2 Renal/ Medical History: Denies: Hx Peritoneal Dialysis GI Medical History: Denies: Hx Hepatitis, Hx Hiatal Hernia, Hx Ulcer Musculoskeletal Medical History: Reports Hx Arthritis Psychiatric Medical History: Denies: Hx Depression Infectious Medical History: Denies: Hx Hepatitis Past Surgical History: Reports: Hx Carotid Endarterectomy, Hx Tubal Ligation, Hx Vascular Surgery - right carotid "cleaned out". Denies: Hx Hysterectomy, Hx Mastectomy, Hx Open Heart Surgery, Hx Pacemaker - Immunizations Hx Diphtheria, Pertussis, Tetanus Vaccination: Yes Review of Systems - Review of Systems Notes: CONSTITUTIONAL: No fever. SKIN: No rash. HENT: No congestion, ear pain, or sore throat. CARDIOVASCULAR: No chest pain. RESPIRATORY: No cough. Positive for shortness of breath. GASTROINTESTINAL: No abdominal pain, nausea, vomiting. MUSCULOSKELETAL: No joint pain or swelling. NEUROLOGIC: No headache. No lightheadedness. HEMATOLOGIC: No unusual bruising or bleeding. PSYCHIATRIC: No depression or anxiety. Physical Exam - Vital signs Vitals: Resp Pulse Ox 20 82 L 11/03/20 15:20 11/03/20 15:20 - General General appearance: Appears well In distress: Mild Notes: VITAL SIGNS: Hypoxic on her normal 3.5 L. GENERAL: No acute distress, non-toxic appearance. HEAD: Normal with no signs of head trauma. EYES: Conjunctiva normal, no discharge. EARS: Hearing grossly intact. NOSE: Normal. NECK: Normal range of motion, supple. No JVD. CHEST: Clear breath sounds bilaterally. No wheezes, rales, or rhonchi. CARDIAC: Regular rate and rhythm. VASCULAR: No Edema. No lower extremity swelling. ABDOMEN: Normal and soft with no tenderness. MUSCULOSKELETAL: No deformities. NEUROLOGICAL: Alert and oriented x 3. No focal sensory or strength deficits. Speech normal. Follows commands appropriately. PSYCHIATRIC: Normal Affect, judgement and mood. SKIN: Normal appearance with no rashes or lesions. Course - Re-evaluation Re-evalutation: 11/03/20 17:09 I increased patient's oxygen up to 6 L because she was hypoxic at 86 to 88% on 4L. She does seem to be having a little bit difficulty breathing but overall is not distressed and is playing on her IPAD in the room. I discussed with her starting CPAP if needed and she agreed. I have also made numerous attempts to call her son and he has not answered the phone. Patient's BNP is elevated, however, her chest xray is clear without any overt edema, her lung exam does not have rales. She also has no lower extremity edema. I am not convinced that she is in a CHF exacerbation. Patient seemed to improve on 6 L and her O2 saturations improved to the low 90s. I will hold off on CPAP or BiPAP. Patient's D-dimer is very elevated. CTA was ordered. She does have a slightly elevated creatinine so I will hydrate her with a small amount of fluids. Patient CTA returned with bilateral pulmonary emboli. I have consulted the hospitalist for admission. We have agreed to start her on heparin bolus and drip as her kidney function is probably too low for Lovenox. I was just able to reach her son. I have updated him. He states that she has never been on any blood thinners. He states that today, she took off her oxygen to use the restroom and when she came back she was very hypoxic and they could not increase it with her normal 3.5 L. That is why they called the ambulance. He states that she only started wearing oxygen yesterday. Son is very agreeable to the plan. 11/03/20 20:35 Hospitalist evaluated the patient. She will be placed on IMCU. She is very agreeable to the plan. - Vital Signs Vital signs: Temp Pulse Resp BP Pulse Ox 22 H 183/113 H 91 L 11/03/20 20:01 11/03/20 20:01 11/03/20 20:01 - Laboratory Results Result Diagrams: 11/03/20 14:30 11/03/20 14:30 Laboratory Results Interpreted: 11/03/20 11/03/20 11/03/20 14:30 14:30 14:30 WBC 11.1 H RBC 5.79 H Hgb 15.7 H Hct 48.3 H RDW 17.0 H Absolute Neuts (auto) 8.3 H D-Dimer ABG pH ABG pCO2 ABG pO2 ABG HCO3 ABG Total CO2 ABG O2 Saturation BUN 22 H Creatinine 1.29 H Est GFR ( Amer) 47 L Est GFR (MDRD) Non-Af 39 L Glucose 230 H Alkaline Phosphatase 155 H C-Reactive Protein NT-Pro-B Natriuret Pep 6930 H Urine Protein 11/03/20 11/03/20 11/03/20 14:30 14:30 17:02 WBC RBC Hgb Hct RDW Absolute Neuts (auto) D-Dimer 6.88 H ABG pH ABG pCO2 ABG pO2 ABG HCO3 ABG Total CO2 ABG O2 Saturation BUN Creatinine Est GFR ( Amer) Est GFR (MDRD) Non-Af Glucose Alkaline Phosphatase C-Reactive Protein 12.4 H NT-Pro-B Natriuret Pep Urine Protein 30 H 11/03/20 19:55 WBC RBC Hgb Hct RDW Absolute Neuts (auto) D-Dimer ABG pH 7.47 H ABG pCO2 34.8 L ABG pO2 56.9 L ABG HCO3 24.7 H ABG Total CO2 25.8 H ABG O2 Saturation 91.5 L BUN Creatinine Est GFR ( Amer) Est GFR (MDRD) Non-Af Glucose Alkaline Phosphatase C-Reactive Protein NT-Pro-B Natriuret Pep Urine Protein Critical Laboratory Results Reviewed: No Critical Results - Radiology Results Critical Radiology Results Reviewed: Yes Attending or Supervising Physician who Reviewed Radiology: EMELINA ALEGRIA - EKG Interpretation by Me EKG shows normal: Sinus rhythm Rate: Normal Rhythm: NSR When compared to previous EKG there are: No significant change Additional EKG results interpreted by me: 11/03/20 16:01 Sinus rhythm at rate of 83. QTc 470. No acute ST changes. Previous EKG is similar. Critical Care Note - Critical Care Note Total time excluding time spent on procedures (mins): 45 Comments: Upon my evaluation, this patient had a high probability of imminent or life- threatening deterioration due to pulmonary embolism and shortness of breath, which required my direct attention, intervention, and personal management. I have personally provided 45 minutes of critical care time. Time includes review of laboratory data, radiology results, discussion with consultants, and monitoring for potential decompensation. Interventions were performed as documented above. Discharge - Discharge Clinical Impression: Bilateral pulmonary embolism Dyspnea Qualifiers: Dyspnea type: shortness of breath Qualified Code(s): R06.02 - Shortness of breath Condition: Stable Disposition: ADMITTED INPATIENT Admitting Provider: [facility] Admitted: [facility]
[2020-11-03 15:29] LABS: ABSOLUTE BASOPHILS # (AUTO) 0.1 10^3/uL (0.0-0.2); ABSOLUTE LYMPHOCYTES (AUTO) 2.2 10^3/uL (0.5-4.7); ABSOLUTE MONOCYTES (AUTO) 0.5 10^3/uL (0.1-1.4); ABSOLUTE NEUT (AUTO) 8.3 10^3/uL (1.7-8.2); BASOPHILS % (AUTO) 1.1 % (0-2); EOSINOPHILS % (AUTO) 0.3 % (0-6); HEMATOCRIT 48.3 % (36.0-47.0); HEMOGLOBIN 15.7 g/dL (12.0-15.5); LYMPHOCYTES % (AUTO) 19.4 % (13-45); MEAN CORPUSCULAR HEMOGLOBIN 27.1 pg (27.0-33.4); MEAN CORPUSCULAR HGB CONC 32.5 g/dL (32.0-36.0); MEAN CORPUSCULAR VOLUME 83 fl (80-97); MONOCYTES % (AUTO) 4.8 % (3-13); PLATELET COUNT 154 10^3/uL (150-450); RED BLOOD COUNT 5.79 10^6/uL (3.72-5.28); SEGMENTED NEUTROPHILS % (AUTO) 74.4 % (42-78); TOTAL CELLS COUNTED % (AUTO) 100 %; WHITE BLOOD COUNT 11.1 10^3/uL (4.0-10.5)
[2020-11-03 15:41] LABS: ALKALINE PHOSPHATASE 155 U/L (38-126); ANION GAP 10 (5-19); ASPARTATE AMINO TRANSFERASE 27 U/L (14-36); BILIRUBIN,DIRECT 0.4 mg/dL (0.0-0.4); BILIRUBIN,TOTAL 0.8 mg/dL (0.2-1.3); BLOOD UREA NITROGEN 22 mg/dL (7-20); CALCIUM 9.3 mg/dL (8.4-10.2); CARBON DIOXIDE 26 mmol/L (22-30); CHLORIDE 104 mmol/L (98-107); GLUCOSE 230 mg/dL (75-110); POTASSIUM 4.4 mmol/L (3.6-5.0); TOTAL PROTEIN 6.8 g/dL (6.3-8.2)
[2020-11-03] MEDS ORDERED: IPRATROPIUM/ALBUTEROL 0.5-2.5 MG/3 ML AMPUL NEB ONE (16:01)
--- NOTE | 2020-11-03 16:01 | RADIOLOGY REPORT (SQ) ---
EXAM DESCRIPTION: CHEST SINGLE VIEW IMAGES COMPLETED DATE/TIME: 11/03/2020 2:49 pm REASON FOR STUDY: SOB COMPARISON: 06/04/2019 EXAM PARAMETERS: NUMBER OF VIEWS: One view. TECHNIQUE: Single frontal radiographic view of the chest acquired. RADIATION DOSE: NA LIMITATIONS: None. FINDINGS: LUNGS AND PLEURA: Lungs are hyperinflated. Biapical pleural and parenchymal scarring. Bi lateral peripheral pleural scarring in appears stable. No focal consolidation or pleural effusion. No pneumothorax. MEDIASTINUM AND HILAR STRUCTURES: No masses. Contour normal. HEART AND VASCULAR STRUCTURES: Heart normal in size. Normal vasculature. BONES: No acute findings. HARDWARE: None in the chest. OTHER: No other significant finding. 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 No evidence of acute cardiopulmonary disease. TECHNICAL DOCUMENTATION: JOB ID: [id number] 2010 [employer]- All Rights Reserved Reading location - IP/workstation name: [email or web address]
--- OUTSIDE RECORDS SUMMARY | 2020-11-03 17:10 | XMS REPORT ---
:1935 Author Organization [facility] Address [address] [place] [address] Care Team Providers Name Role Phone Other, Doc [phone] Primary Care Physician Unavailable Jose A Attending Clinician Unavailable Parmjit RUIZ Attending Clinician Unavailable Sudheer RUIZ Attending Clinician Unavailable Nuno RUIZ Attending Clinician Unavailable Jose Juan Attending Clinician Unavailable Josselin Attending Clinician Unavailable Allergies, Adverse Reactions, Alerts Allergy Name Allergy Status Severity Reaction(s) Onset Inactive Treat ing Comments Type Date Date Clinician METFORMIN Drug Active U Hives;Gastri allergy c Distress 12-06 00:00: 00 metFORMIN metFORMIN Active HCl TABS HCl TABS Penicillins Penicillins Active Statins Statins Active Diarrhea Sulfa Drugs Sulfa Drugs Active Metformin Allergy to Active substance Sulfa Allergy to Active (Sulfonamide substance Antibiotics) Medications Ordered Filled Start Stop Current Ordering Indication Dosage Frequency Signature Comments Components Medication Medication Date Date Medication? Clinician (SIG) Name Name [facility] 2019-10- No 100,000 2-21 12-30 UNITS/GM 07:00: 10:00 POWDER 00 :00 FUROSEMIDE 2019-10- No 40 MG 2-20 12-30 TABLET 06:00: 10:00 00 :00 LANTUS 2019-10- No SOLOSTAR 2-17 12-30 100 UNIT/ML 15:53: 10:00 00 :00 GABAPENTIN 2019-10- No 100 MG 2-17 12-30 CAPSULE 15:48: 10:00 00 :00 SENNA PLUS 2019-10 2020- No TABLET 2-15 12-30 21:00: 10:00 00 :00 FLUTICASONE 2019-10- No PROP 50 MCG 2-15 12-30 SPRAY 21:00: 10:00 00 :00 ASPIRIN 81 2019-10 2020- No MG CHEWABLE 2-15 12-30 TABLET 09:00: 10:00 00 :00 METOPROLOL 2019-10- No SUCC ER 25 2-15 12-30 MG TAB 09:00: 10:00 00 :00 PREDNISONE 2019-10- No 20 MG 2-15 12-30 TABLET 09:00: 10:00 00 :00 IPRAT-ALBUT 2019-10- No 0.5-3(2.5) 2-15 12-30 MG/3 ML 09:00: 10:00 00 :00 ANORO 2019-10- No ELLIPTA 2-15 12-30 62.5-25 MCG 09:00: 10:00 INH 00 :00 INSULIN 2019-10- No ASPART 100 2-15 12-30 UNIT/ML PEN 06:30: 10:00 00 :00 GLIMEPIRIDE 2019-10- No 4 MG TABLET 2-14 12-30 16:03: 10:00 00 :00 MN ACID 2019-10- No SUSPENSION 2-14 12-30 15:30: 10:00 00 :00 ACETAMINOPH 2019-10- No EN 325 MG 2-14 12-30 TABLET 15:00: 10:00 00 :00 TELMISARTAN 2019-10- No -AMLODIPINE 2-14 12-30 40-10 14:52: 10:00 00 :00 OMEPRAZOLE 2019-10- No DR 20 MG 2-14 12-30 TABLET 14:51: 10:00 00 :00 Anoro 2019-10 Yes Freida QD Anoro Ellipta 1-20 Parmjit RUIZ Ellipta 62.5-25 11:46: 62.5-25 MCG/INH 57 MCG/INH Inhalation Inhalation Aerosol Aerosol Powder Powder Breath Breath Activated Activated INHALE 1 PUFF BY MOUTH ONCE DAILY DIRECTED Quantity: 1 Refills: 0 Freida Parnell MD Start : 0Active 60 Each Pack Otezla 10 & 2019-10 Yes Tomasz Otezla 10 20 & 30 MG 0-19 Parnell & 20 & 30 Oral Tablet 00:00: D.O. MG Oral Therapy 00 Tablet Pack Therapy Pack orally follow frances deng on starter pack Quantity: 1 Refills: 0 Tomasz Parnell D.O. Start : 0Active 55 Tablet Pack Otezla 30 2019-10 Yes Tomasz Otezla 30 MG Oral 0-16 Parnell MG Oral Tablet 00:00: D.O. Tablet 00 TAKE ONE TAB PO BID Quantity: 60 Refills: 3 Tomasz Parnell D.O. Start : 0Active Lantus 2019-0 Yes 0 Lantus SoloStar 9-08 SoloStar 100 UNIT/ML 00:00: 100 Subcutaneou 00 UNIT/ML s Solution Subcutaneo Pen-injecto us r Solution Pen-inject or Quantity: 15 Refills: 0 ,,, Start : 22-Jun-2020 Active Albuterol 2020-0 Yes 0 Albuterol Sulfate 9-02 Sulfate (2.5 00:00: (2.5 MG/3ML) 00 MG/3ML) 0.083% 0.083% Inhalation Inhalation Nebulizatio Nebulizati n Solution on Solution Quantity: 75 Refills: 0 ,,, Start : 16-Jun-2020 Active Metoprolol 2019-0 Yes Feng Metoprolol Succinate 6-05 Sudheer Succinate ER 25 MG 13:43: ER 25 MG Oral Tablet 34 Oral Extended Tablet Release 24 Extended Hour Release 24 Hour Take 1 tablet by mouth once daily Quantity: 45 Refills: 0 Feng Willard MD Start : 19-Mar-2020 Active Telmisartan 2019- Yes 0 Telmisarta -amLODIPine 4-01 n-amLODIPi 40-10 MG 00:00: ne 40-10 Oral Tablet 00 MG Oral Tablet Quantity: 15 Refills: 0 ,,, Start : 14-Jan-2020 Active Trulicity 2018-10 Yes 0 Trulicity 0.75 1-20 0.75 MG/0.5ML 00:00: MG/0.5ML Subcutaneou 00 Subcutaneo s Solution us Pen-injecto Solution r Pen-inject or Quantity: 2 Refills: 0 ,,, Start : 9Active Glimepiride 2018-10 Yes Yojana QD Glimepirid 4 MG Oral 0-23 Nuno khoury 4 MG Tablet 11:23: Oral 42 Tablet TAKE 1 TABLET BY MOUTH ONCE A DAY DIRECTED Quantity: 90 Refills: 1 Yojana Reina MD Start : 9Active Ventolin 2018-10 Yes Freida Crespo HFA 108 (90 0-23 Parmjit RUIZ HFA 108 Base) 00:00: (90 Base) MCG/ACT 00 MCG/ACT Inhalation Inhalation Aerosol Aerosol Solution Solution 2 puffs every 4-6 hours as needed Quantity: 1 Refills: 3 Freida Parnell MD Start : 9Active 18 GM Inhaler Anoro 2019- No Freida 1 QD Anoro Ellipta 0-23 Parmjit RUIZ Ellipta 62.5-25 00:00: 62.5-25 MCG/INH 00 MCG/INH Inhalation Inhalation Aerosol Aerosol Powder Powder Breath Breath Activated Activated INHALE 1 PUFFS DAILY Quantity: 1 Refills: 5 Freida Parnell MD Start : 9Active 60 Each Pack Cetirizine 2019-0 Yes 0 1 QD Cetirizine HCl - 10 MG 8-30 HCl - 10 Oral Tablet 00:00: MG Oral 00 Tablet TAKE 1 TABLET DAILY. Quantity: 90 Refills: 3 ,,, Start : 9Active Cefuroxime 2019-0 Yes 0 Cefuroxime Axetil 500 8-21 Axetil 500 MG Oral 00:00: MG Oral Tablet 00 Tablet Quantity: 28 Refills: 0 ,,, Start : 9Active ProAir HFA 2019-0 Yes 0 ProAir HFA 108 (90 6-08 108 (90 Base) 00:00: Base) MCG/ACT 00 MCG/ACT Inhalation Inhalation Aerosol Aerosol Solution Solution Quantity: 85 Refills: 0 ,,, Start : 22-Mar-2019 Active Dicyclomine 2019-0 Yes 0 Dicyclomin HCl - 10 MG 3-21 e HCl - 10 Oral 00:00: MG Oral Capsule 00 Capsule Quantity: 30 Refills: 0 ,,, Start : 9Active Nitroglycer 2019-0 Yes 0 Nitroglyce in 0.4 MG 3-21 rin 0.4 MG Sublingual 00:00: Sublingual Tablet 00 Tablet Sublingual Sublingual Quantity: 25 Refills: 0 ,,, Start : 9Active Pantoprazol 2019-0 Yes 0 Pantoprazo e Sodium 40 3-21 le Sodium MG Oral 00:00: 40 MG Oral Tablet 00 Tablet Delayed Delayed Release Release Quantity: 90 Refills: 0 ,,, Start : 9Active Omeprazole 2017- Yes 0 Omeprazole 20 MG Oral 1-30 20 MG Oral Capsule 00:00: Capsule Delayed 00 Delayed Release Release Quantity: 90 Refills: 0 ,,, Start : 8Active Aspirin 2017-10 Yes 0 1 QD Aspirin Adult Low 1-15 Adult Low Dose 81 MG 00:00: Dose 81 MG Oral Tablet 00 Oral Delayed Tablet Release Delayed Release TAKE 1 TABLET DAILY. Refills: 0 ,,, Start : 8Active Gabapentin 2017-10 Yes 0 Gabapentin 100 MG Oral 1-15 100 MG Capsule 00:00: Oral 00 Capsule TAKE 2 CAPSULES FOUR TIMES DAILY Refills: 0 ,,, Start : 8Active gabapentin No gabapentin 100 mg 100 mg capsule capsule glimepiride No glimepirid 4 mg tablet e 4 mg tablet Problems Condition Condition Condition Status Onset Resolution Last Treatin g Comments Name Details Category Date Date Treatment Clinician Date Cervical Cervical Problem Active disc Disc 8-29 prolapse Prolapse 00:00: with with 00 radiculopat Radiculopat hy hy Degeneratio Degeneratio Problem Active n of n of 8-29 cervical Cervical 00:00: interverteb Interverteb 00 ral disc ral Disc 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 Cervical 00:00: region Region 00 Neck pain Neck Pain Problem Active 8-29 00:00: 00 Cervical Cervical Problem Active radiculopat Radiculopat 8-17 hy hy 00:00: 00 Pain in Pain in Problem Active finger Finger 8-17 00:00: 00 Pain of Pain of Problem Active right Right 8-17 shoulder Shoulder 00:00: joint Joint 00 Osteoarthro Osteoarthro Problem Active sis of the sis of the 04-15 carpometaca Carpometaca 00:00: rpal joint rpal Joint 00 of the of the thumb Thumb 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 00:00: 00 Chronic Chronic Problem Active back pain Back Pain 3-30 00:00: 00 Pain of Pain of Problem Active 0 left wrist Left Wrist 3-30 00:00: 00 Pain of Pain of Problem Active left Left 3-30 shoulder Shoulder 00:00: joint Joint 00 Not on file Not on file [id number] Abnormal Abnormal Problem Active finding on finding on urinalysis urinalysis Sinusitis Sinusitis Problem Active Cough Cough Problem Active Respiratory Respiratory Problem Active failure failure with with hypoxia hypoxia Chest pain Chest pain Problem Active COPD COPD Problem Active (chronic (chronic obstructive obstructive pulmonary pulmonary disease) disease) Diabetes Diabetes Problem Active mellitus mellitus Dyspnea Dyspnea Problem Active Elevated Elevated Problem Active rheumatoid rheumatoid factor factor High risk High risk Problem Active medication medication use use HTN HTN Problem Active (hypertensi (hypertensi on) on) Hyperlipide Hyperlipide Problem Active katherine, mixed katherine, mixed Polycythemi Polycythemi Problem Active a a Encounter Encounter Problem Active for for immunizatio immunizatio n n 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 Hypoxia Hypoxia Problem Active Diabetic Diabetic Problem Active peripheral peripheral neuropathy neuropathy Pterygium Pterygium Problem Active of right of right eye eye Arthralgia Arthralgia Problem Active of multiple of multiple joints joints Gait, Gait, Problem Active antalgic antalgic 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 Drug-induce Drug-induce Problem Active d diarrhea d diarrhea Age-related Age-related Problem Active bone loss bone loss Osteopenia Osteopenia Problem Active of multiple of multiple sites sites Congestive Congestive Problem Active heart heart failure failure Elevated Elevated Problem Active brain brain natriuretic natriuretic peptide peptide (BNP) level (BNP) level Sinus Sinus Problem Active arrhythmia arrhythmia Cardiac 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 Type 2 Type 2 Problem Active diabetes diabetes mellitus mellitus Procedures Procedure Date / Time Performed Performing Clinician [place] e [facility] - Chest without Contrast 2020-09-10 00:00:00 DP-2D Echo 2020-09-10 00:00:00 Miscellaneous Test 2020-09-08 00:00:00 L - JUAN MANUEL 2020-09-08 00:00:00 L - D-Dimer 2020-09-08 00:00:00 CMP(Complete Metabolic Panel) 2020-09-08 00:00:00 Rheumatoid Factor 2020-09-08 00:00:00 CRP 2020-09-08 00:00:00 L - Angiotensin-Converting Enzyme 2020-09-08 00:00:00 L - SARS-CoV-2 Antibody,IgA 2020-09-08 00:00:00 CK 2020-09-08 00:00:00 L - Creatine Kinase (CK), MB 2020-09-08 00:00:00 L - Troponin T 2020-09-08 00:00:00 Urine Culture 2020-07-06 00:00:00 Free T4 2020-07-05 00:00:00 CBC 2020-07-05 00:00:00 CMP(Complete Metabolic Panel) 2020-07-05 00:00:00 CRP 2020-07-05 00:00:00 L - Chlamydia/GC Amplification 2020-07-05 00:00:00 L - Doctor Wendys Hepatitis Panel 2020-07-05 00:00:00 (HP4+HBsAb) L - HLA B 27 Disease Association 2020-07-05 00:00:00 L - QuantiFERON Client Incubated 2020-07-05 00:00:00 Sed Rate 2020-07-05 00:00:00 TSH 2020-07-05 00:00:00 Uric Acid 2020-07-05 00:00:00 Urinalysis 2020-07-05 00:00:00 Iron & TIBC Panel 2020-07-05 00:00:00 Iron 2020-07-05 00:00:00 Ferritin 2020-07-05 00:00:00 HGBA1C 2020-07-05 00:00:00 Endoscopy, Wrist, Surgical, with 2018-02-26 00:00:00 Release of Transverse Carpal Ligament OFFICE/OUTPATIENT VISIT EST 2017-12-06 15:15:00 OFFICE/OUTPATIENT VISIT EST 2017-09-20 14:15:00 OFFICE/OUTPATIENT VISIT EST 2017-05-10 10:00:00 OFFICE/OUTPATIENT VISIT [facility] 2017-02-22 13:45:00 OFFICE/OUTPATIENT VISIT [facility] 2017-01-19 09:00:00 Other Knee Surgery Tubal Ligation Results Test Description Test Time Test Comments Text Results Atomic Results Result Comments SARS-CoV-2 (COVID-19) 2020-10-12 11:46:10 Test Item Value Reference Range Comments SARS-CoV-2 nucleocapsid antigens (test Presumptive Negative Test for SARS-CoV-2 code = 84948-7) (no antigen detected) SARS-CoV-2 RNA Resp Ql MARY LOU+[id number] 00:00:00 Test Item Value Reference Range Comments SARS-CoV-2 RNA Resp Ql Not detected [place] [facility] MARY LOU+probe (test code = ID: COVID [id number]) [id number] 14:03:00 Test Item Value Reference Range Comments Creatinine Kinase (test code = Creatinine Kinase) 48 U/L 30-135 Creatine Kinase (CK), [id number] 14:03:00 Test Item Value Reference Range Comments Creatine Kinase (CK), MB (test code = 75568-3) 2.5 ng/mL 0 .0-5.3 [facility]: [] [address], [address], , Activity Director: Iwona Chance [id number] 14:03:00 Test Item Value Reference Range Comments Troponin T (test code = 6598-7) <0.010 <0.011 [facility] performed at: [] [address], [address], , Activity Director: TREASURE ChanceBC2020-11-25 12:50:00 Test Item Value Reference Range Comments White Blood Cell (test code = White Blood Cell) 11.3 K/uL 3.5-11.1 Red Blood Cell (test code = Red Blood Cell) 5.55 {M/uL} 3.69 -4.87 Hemoglobin (test code = Hemoglobin) 15.1 g/dL 11.4-14.4 Hematocrit (test code = Hematocrit) 47 % 33-41 Mean Corpuscular Volume (test code = Mean 84.5 fL 79.0-9 5.0 Corpuscular Volume) Mean Corpuscular Hemoglobin (test code = Mean 27.2 pg/mL 27 .0-33.0 Corpuscular Hemoglobin) Mean Corpuscular Hemoglobin Concentration (test 32.2 g/dL 33.5-35.5 code = Mean Corpuscular Hemoglobin Concentration) Red Cell Distribution Width (test code = Red 14.6 % 12. 0-15.0 Cell Distribution Width) Platelet (test code = Platelet) 235 K/uL 130-353 Mean Platelet Volume (test code = Mean Platelet 11.4 fL 7.5-10.7 Volume) Neutrophil Count, absolute (test code = 7.3 K/uL 1.9-7.2 Neutrophil Count, absolute) Neutrophil Count Percentage (test code = 64.4 % 43.0-72 .0 Neutrophil Count Percentage) Lymphocyte Count, absolute (test code = 2.4 K/uL 1.1-2.7 Lymphocyte Count, absolute) Lymphocyte Count Percentage (test code = 21.0 % 17.0-44 .0 Lymphocyte Count Percentage) Monocyte Count, absolute (test code = Monocyte 1.3 K/uL 0 .3-0.8 Count, absolute) Monocyte Count Percentage (test code = Monocyte 11.6 % 4.5-12.4 Count Percentage) Eosinophil Count, absolute (test code = 0.2 K/uL 0.0-0.5 Eosinophil Count, absolute) Eosinophil Count Percentage (test code = 1.9 % 0.7-7.8 Eosinophil Count Percentage) Basophil Count, absolute (test code = Basophil 0.0 K/uL 0 .0-0.1 Count, absolute) Basophil Count Percentage (test code = Basophil 0.4 % 0.2-1.1 Count Percentage) Nucleated Red Blood Cell, absolute (test code = 0.00 K/uL 0.00-0.00 Nucleated Red Blood Cell, absolute) Nucleated Red Blood Cell, percentage (test code 0.00 % 0.00-0.00 = Nucleated Red Blood Cell, percentage) COVID-19 Rapid Antigen [id number] 12:50:00 Test Item Value Reference Range Comments COVID-19 Rapid Antigen Test (test code Presumptive Negative Nega tive = COVID-19 Rapid Antigen Test) Presumptive negative for the presence of SARS-CoV-2 antigen. This antigen test is only intended foruse under the FDA's EUA.Sed [id number] 12:50:00 Test Item Value Reference Range Comments Erythrocyte Sedimentation Rate (test code = 33 {mm/hr} 0-30 Erythrocyte Sedimentation Rate) L - Angiotensin-Converting [id number] 12:50:00 Test Item Value Reference Range Comments MAGDI (test code = 2742-5) 71 U/L [facility] performed at: [] [address], [address], , Activity Director: Mary Adams MDTest(s) [id number] Antibody, IgMhas not been FDA cleared or approved. This test hasbeen authorized by FDA under an Emergency UseAuthorization (EUA). This test is only authorized for theduration of the declaration that circumstances existjustifying the authorization of emergency use of in vitrodiagnostics for detection and/or diagnosis of COVID-19under Section 564(b)(1) of the Act, 21 U.S.C. 360bbb-3(b)(1), unless the authorization is terminated orrevoked sooner. This test has been authorized only fordetecting the presence of antibodies against SARS-CoV-2,not for any other viruses or pathogens.[id number] 12:50:00 Test Item Value Reference Range Comments D-Dimer (test code = 5.06 {mg/L FEU} 0.00-0.49 According t o the assay D-Dimer) specimen accessioner's p ublished packageinsert, a normal (<0.50 mg/L FEU) D-dime r result inconjunction wi th a non-high clinical probabi lityassessment, excludes deep ve in thrombosis (DVT) andpulmona ry embolism (PE) with high sensit ivity.D-dimer values increase with age and this can make VT Eexclusion of an older population difficult. To addressthis, the [employer], based on bestavailable ev idence and recent guideline s, recommends thatclinicians u se age-adjusted D-dimer threshol ds in patientsgreater than 50 years of age with: a) a l ow probability ofPE who do not meet all Pulmonary Emboli sm Rule OutCriteria, or b) in those with intermediate pro bability ofPE. The formula for an age-adjusted D-dimer cut-off is"age/100". For example, a 60 ye ar old patient would have anage -adjusted cut-off of 0.60 mg/L FEU and an 80 year old0.80 mg/L FEU. [facility] at: [BN[facility] [place], [address], , Activity Director: Mary Adams MDTest(s) [id number] Antibody, IgG; 768599- Euroimmun SARS-CoV-2 Ab, IgGhas not been FDA cleared or approved. This test hasbeen authorized by FDA under an Emergency UseAuthorization (EUA). This test is only authorized for theduration of the declaration that circumstances existjustifying the authorization of emergency use of in vitrodiagnostics for detection and/or diagnosis of COVID-19under Section 564(b)(1) of the Act, 21 U.S.C. 360bbb-3(b)(1), unless the authorization is terminated orrevoked sooner. This test has been authorized only fordetecting the presence of antibodies against SARS-CoV-2,not for any otherviruses or pathogens.L - SARS-CoV-2 Antibody, [id number] 12:50:00 Test Item Value Reference Range Comments SARS-CoV-2 Antibody, IgG Comment Negative See Eur oimmun SARS-CoV-2 Ab, IgG (test code = SARS-CoV-2 Antibody, IgG) Euroimmun SARS-CoV-2 Ab, IgG Negative Negative Thi s sample does not contain (test code = Euroimmun detectabl e SARS-CoV-2 SARS-CoV-2 Ab, IgG) IgGantibodie s. This negative result does not rule out SARS-CoV-2 infec tion. Correlation with epidemiologic risk factorsand other clinical and laboratory f indings is recommended.Sero logic results should not be us ed as the sole basis todiagnose or exclude recent SARS-CoV- 2 infection.This assay was perfor med using the Euroimmun SARS-C oV-2 IgGassay. [facility] performed at: [BN] [facility], [address] [place], [address], , Activity Director: Mary Adams MDTest(s) [id number] Antibody, IgG; 783125- Euroimmun SARS-CoV-2 Ab, IgGhas not been FDA cleared or approved. This test hasbeen authorized by FDA under an Emergency UseAuthorization (EUA). This test is only authorized for theduration of the declaration that circumstances existjustifying the authorization of emergency use of in vitrodiagnostics for detection and/or diagnosis of COVID-19under Section 564(b)(1) of the Act, 21 U.S.C. 360bbb-3(b)(1), unless the authorization is terminated orrevoked sooner. This test has been authorized only fordetecting the presence of antibodies against SARS-CoV-2,not for any otherviruses or pathogens.[facility] - SARS-CoV-2 Antibody, [id number] 12:50:00 Test Item Value Reference Range Comments SARS-CoV-2 Antibody, IgM Negative Negative This sa mple does not contain (test code = SARS-CoV-2 detectab le SARS-CoV-2 Antibody, IgM) IgMantibodies. T his negative result does not rule out SARS-CoV-2 infec tion. Correlation with epidemiolog ic risk factorsand other clinical a nd laboratory findings is davide mmended.Serologic results should n ot be used as the sole basis todia gnose or exclude recent SARS-CoV- 2 infection. [facility] performed at: [BN] [address], [address], , Activity Director: Mary Adams MDTest(s) [id number] Antibody, IgMhas not been FDA cleared or approved. This test hasbeen authorized by FDA under an Emergency UseAuthorization (EUA). This test is only authorized for theduration of the declaration that circumstances existjustifying the authorization of emergency use of in vitrodiagnostics for detection and/or diagnosis of COVID-19under Section 564(b)(1) of the Act, 21 U.S.C. 360bbb-3(b)(1), unless the authorization is terminated orrevoked sooner. This test has been authorized only fordetecting the presence of antibodies against SARS-CoV-2,not for any other viruses or pathogens.L - SARS-CoV-2 Antibody,[id number] 12:50:00 Test Item Value Reference Range Comments SARS-CoV-2 Antibody,IgA Negative Negative This donna ple does not contain (test code = SARS-CoV-2 detectab le SARS-CoV-2 Antibody,IgA) IgAantibodies. T his negative result does not rule out SARS-CoV-2 infec tion. Correlation with epidemiolog ic risk factorsand other clinical a nd laboratory findings is davide mmended.Serologic results should n ot be used as the sole basis todia gnose or exclude recent SARS-CoV- 2 infection. [employer] performed at: [] [address], [address], , Activity Director: Mary Adams MDTest(s) [id number] Antibody, IgAhas not been reviewed by the Food and Drug Administration.L - [id number] 12:50:00 Test Item Value Reference Range Comments Antinuclear Antibodies, IFA Negative (test code = 5048-4) Negative <1:80 Borderline 1:80 Positive >1:80 Please Note: (test code = Comment JUAN MANUEL Mu ltiplex methodology was Please Note:) designed to dete ct up to 11antibodies of the 100+ antibodies that may be detected byANA I FA methodology. [facility] performed at: [BN] [address], [address], , Activity Director: TREASURE Chance(Complete Metabolic Panel)2020-09-08 12:49:00 Test Item Value Reference Range Comments Glucose (test code = Glucose) 123 mg/dL 74-106 Sodium (test code = Sodium) 140 mmol/L 135-145 Potassium (test code = Potassium) 4.3 mmol/L 3.5-5.3 Chloride (test code = Chloride) 107 mmol/L 98-107 CO2 (test code = CO2) 22 mmol/L 22-30 Creatinine, serum (test code = Creatinine, serum) 0.80 mg/dL 0.10-1.04 Glomerular Filtration Rate (test code = >60 >60 Glomerular Filtration Rate) Glomerular Filtration Rate AA (test code = >60 >60 Glomerular Filtration Rate AA) Blood Urea Nitrogen (test code = Blood Urea 15 mg/dL 7-17 Nitrogen) Calcium (test code = Calcium) 8.7 mg/dL 8.4-10.5 Phosphorus (test code = Phosphorus) 4.5 mg/dL 2.5-4.5 Total Protein (test code = Total Protein) 6.4 g/dL 6.3-8. 2 Albumin (test code = 96980-1) 3.5 g/dL 3.5-5.0 Total Bilirubin (test code = Total Bilirubin) 1.0 mg/dL 0. 2-1.3 Bilirubin, unconj (test code = Bilirubin, unconj) 0.5 mg/dL 0.0-1.1 Bilirubin, Direct (test code = Bilirubin, Direct) 0.5 mg/dL 0.0-0.4 Alkaline Phosphatase (test code = Alkaline 121 U/L 20-15 0 Phosphatase) Alanine Transaminase (test code = Alanine 15 U/L 0-35 Transaminase) Aspartate Aminotransferase (test code = Aspartate 25 U/L 3-36 Aminotransferase) Rheumatoid [id number] 12:49:00 Test Item Value Reference Range Comments Rheumatoid Factor (test code = Rheumatoid Factor) <9 <11 [id number] 12:49:00 Test Item Value Reference Range Comments C-Reactive Protein (test code = C-Reactive Protein) 35 mg/L <10 Hemoglobin [id number] 10:46:00 Test Item Value Reference Range Comments Hemoglobin A1C; Above High Threshold (test code = 8.1 % 4.3-6.2 4548-4) Hep A Ab, [id number] 10:46:00 Test Item Value Reference Range Comments Hep A Ab, IgM (test code = Negative Negative 62182-4) HBsAg Screen (test code = Negative Negative 5196-1) Hep B Core Ab, IgM (test Negative Negative code = 59432-7) Hep B Surface Ab, Qual Reactive Non (test code = 08250-4) Reactive: Inconsistent with immunity, less than 10 mIU/mL Reactive: C onsistent with immunity, greater than 9.9 mIU/mLVeri fied by repeat analysis Comment: (test code = Comment 0.0-0.9 Non reacti ve HCV antibody screen 45436-0) is consistent wi th no HCVinfection, un less recent infection is tracee pected or otherevidence ex ists to indicate HCV infection. [facility] performed at: [BN] [facility], [address] [place] [address], [address], , Activity Director: Mary Adams MDWills Eye Hospitalrp [id number] 10:46:00 Test Item Value Reference Range Comments QuantiFERON Criteria (test Comment The Q uantiFERON-TB Gold Plus code = QuantiFERON result is det ermined Criteria) bysubtracting th e Nil value from either TB a ntigen (Ag) tube.The mitogen tube serves as a control for the test. QuantiFERON TB1 Ag Value 0.02 {IU/mL} (test code = QuantiFERON TB1 Ag Value) QuantiFERON TB2 Ag Value 0.02 {IU/mL} (test code = QuantiFERON TB2 Ag Value) QuantiFERON Nil Value (test 0.02 {IU/mL} code = QuantiFERON Nil Value) QuantiFERON Mitogen Value >10.00 (test code = QuantiFERON Mitogen Value) QuantiFERON-TB Gold Plus Negative Negative The spe [facility] received for (test code = QuantiFERON-TB Alexis tiFERON testing was Gold Plus) incubatedby the ordering institution. Sp ecific procedures outli nedin our Directory of Ser vices and in the package inse rt forthe QuantiFERON Gold (In Tube) test must be fol lowed toenable for pro per stimulation of c ells for the productionof int erferon gamma. [facility] performed at: [BN] [facility], [address] [place] [address], [phone], , Activity Director: Mary Adams MDL - Chlamydia/GC [id number] 10:46:00 Test Item Value Reference Range Comments Chlamydia trachomatis, MARY LOU (test code = 81779-6) Negative Negative Neisseria gonorrhoeae, MARY LOU (test code = 48645-8) Negative Negative [facility] performed at: [BN] [facility], [address] [place], [address], , Activity Director: Mary Adams MDL - HLA B 27 Disease [id number] 10:46:00 Test Item Value Reference Range Comments HLA-B27 (test code = Positive [place]B*27 [place] [address]-2) positive for HLA -B*27. This procedure rulesout the B*2 7:06 and 27:09 alleles, which the litera turesuggests are not associated with spondyloarthropa malika.B27 allele interpretation f or all loci based on IMGT/HLAdatabase version 3.38This test was developed an d its performance characteristicsd etermined by [facility]. It has not been cleared or approvedby the Food and Rafa g Administration.HLA Lab CLIA ID Number 3 [id number] test was performed using PCR (Polymerase ChainReaction)/S SOP (Sequence Specific Oligonucleotide Probes)technique. SBT (Sequence Based Typing) and/or SSP(Sequence Spe cific Primers) may be used as suppleme ntalmethods when necessary. Plea se contact HLA CustomerService at if you have any questio ns. Director of HLA Laboratory Dr Driss Martinez, PhD [facility] performed at: [2Q] [facility], [address] [place], [address], , Activity Director: Ravi Martinez, [id number] 10:45:00 Test Item Value Reference Range Comments White Blood Cell (test code = White Blood Cell) 9.5 K/uL 3.5-11.1 Red Blood Cell (test code = Red Blood Cell) 6.26 {M/uL} 3.69 -4.87 Hemoglobin (test code = Hemoglobin) 17.5 g/dL 11.4-14.4 Hematocrit (test code = Hematocrit) 54 % 33-41 Mean Corpuscular Volume (test code = Mean 86.4 fL 79.0-9 5.0 Corpuscular Volume) Mean Corpuscular Hemoglobin (test code = Mean 28.0 pg/mL 27 .0-33.0 Corpuscular Hemoglobin) Mean Corpuscular Hemoglobin Concentration (test 32.3 g/dL 33.5-35.5 code = Mean Corpuscular Hemoglobin Concentration) Red Cell Distribution Width (test code = Red 14.3 % 12. 0-15.0 Cell Distribution Width) Platelet (test code = Platelet) 182 K/uL 130-353 Mean Platelet Volume (test code = Mean Platelet 13.0 fL 7.5-10.7 Volume) Neutrophil Count, absolute (test code = 6.5 K/uL 1.9-7.2 Neutrophil Count, absolute) Neutrophil Count Percentage (test code = 68.3 % 43.0-72 .0 Neutrophil Count Percentage) Lymphocyte Count, absolute (test code = 1.9 K/uL 1.1-2.7 Lymphocyte Count, absolute) Lymphocyte Count Percentage (test code = 19.6 % 17.0-44 .0 Lymphocyte Count Percentage) Monocyte Count, absolute (test code = Monocyte 0.9 K/uL 0 .3-0.8 Count, absolute) Monocyte Count Percentage (test code = Monocyte 9.5 % 4.5-12.4 Count Percentage) Eosinophil Count, absolute (test code = 0.1 K/uL 0.0-0.5 Eosinophil Count, absolute) Eosinophil Count Percentage (test code = 1.4 % 0.7-7.8 Eosinophil Count Percentage) Basophil Count, absolute (test code = Basophil 0.1 K/uL 0 .0-0.1 Count, absolute) Basophil Count Percentage (test code = Basophil 0.6 % 0.2-1.1 Count Percentage) Nucleated Red Blood Cell, absolute (test code = 0.00 K/uL 0.00-0.00 Nucleated Red Blood Cell, absolute) Nucleated Red Blood Cell, percentage (test code 0.00 % 0.00-0.00 = Nucleated Red Blood Cell, percentage) [id number] 10:45:00 Test Item Value Reference Range Comments Urine Color (test code = Urine YELLOW Yellow Color) Urine Clarity (test code = Urine CLEAR Clear Clarity) Urine Glucose (test code = Urine 100 mg/dL Negative Glucose) Urine Ketones (test code = Urine NEGATIVE Negative Ketones) Urine Bilirubin (test code = NEGATIVE Negative Urine Bilirubin) Urine Specific [place] (test 1.032 1.010-1.030 code = Urine Specific [place]) Urine Blood (test code = Urine NEGATIVE Negative Blood) Urine pH (test code = Urine pH) 5.5 5.0-8.0 Urine Protein (test code = Urine 100 mg/dL Negative URINE MICROSCOPIC: 6-10 Protein) WBCS, 1-5 HYALIN E CASTS Urine Urobilinogen (test code = 0.2 Eu/dl 0.2 Urine Urobilinogen) Urine Nitrites (test code = NEGATIVE Negative Urine Nitrites) Urine Leukocytes (test code = NEGATIVE Negative Urine Leukocytes) Sed [id number] 10:45:00 Test Item Value Reference Range Comments Erythrocyte Sedimentation Rate (test code = 2 {mm/hr} 0-30 Erythrocyte Sedimentation Rate) Free [id number] 10:45:00 Test Item Value Reference Range Comments Free T4 (test code = Free T4) 1.28 ng/dL 0.78-2.19 CMP(Complete Metabolic Panel)2020-07-05 10:45:00 Test Item Value Reference Range Comments Glucose (test code = Glucose) 197 mg/dL 74-106 Sodium (test code = Sodium) 141 mmol/L 135-145 Potassium (test code = Potassium) 4.0 mmol/L 3.5-5.3 Chloride (test code = Chloride) 102 mmol/L 98-107 CO2 (test code = CO2) 29 mmol/L 22-30 Creatinine, serum (test code = Creatinine, serum) 0.90 mg/dL 0.10-1.04 Glomerular Filtration Rate (test code = >60 >60 Glomerular Filtration Rate) Glomerular Filtration Rate AA (test code = >60 >60 Glomerular Filtration Rate AA) Blood Urea Nitrogen (test code = Blood Urea 16 mg/dL 7-17 Nitrogen) Calcium (test code = Calcium) 9.5 mg/dL 8.4-10.5 Phosphorus (test code = Phosphorus) 4.4 mg/dL 2.5-4.5 Total Protein (test code = Total Protein) 7.2 g/dL 6.3-8. 2 Albumin (test code = 48876-4) 4.5 g/dL 3.5-5.0 Total Bilirubin (test code = Total Bilirubin) 0.7 mg/dL 0. 2-1.3 Bilirubin, unconj (test code = Bilirubin, unconj) 0.4 mg/dL 0.0-1.1 Bilirubin, Direct (test code = Bilirubin, Direct) 0.3 mg/dL 0.0-0.4 Alkaline Phosphatase (test code = Alkaline 142 U/L 20-15 0 Phosphatase) Alanine Transaminase (test code = Alanine 16 U/L 0-35 Transaminase) Aspartate Aminotransferase (test code = Aspartate 23 U/L 3-36 Aminotransferase) [id number] 10:45:00 Test Item Value Reference Range Comments C-Reactive Protein (test code = C-Reactive <5 <10 Less than linearity Protein) Thyroid Stimulating [id number] 10:45:00 Test Item Value Reference Range Comments Thyroid Stimulating Hormone (test code = 1.53 {mIU/mL} 0.46-4. 68 Thyroid Stimulating Hormone) Iron & TIBC [id number] 10:45:00 Test Item Value Reference Range Comments Iron (test code = Iron) 110 ug/dL 37-170 Total Iron Binding Capacity (test code = Total 378 ug/dL 2 65-497 Iron Binding Capacity) Iron % Saturation (test code = Iron % Saturation) 29 % 9-55 [id number] 10:45:00 Test Item Value Reference Range Comments Ferritin (test code = Ferritin) 115.0 ng/mL 11.1-264.0 Uric [id number] 10:45:00 Test Item Value Reference Range Comments Uric Acid (test code = Uric Acid) 8.5 mg/dL 2.5-6.2 Urine [id number] 08:31:00 Test Item Value Reference Range Comments 48 Hour Report (test Microbiology results [place] Count[07/06/2020 9:06 code = 48 Hour AM MGL] 20,000 Report) cfu/mlOrganism I D[07/06/2020 9:06 AM MGL] Pre sumptive Proteus mirabili s (Isolate 1)Sensitivity An alysis Gram Negative-------- Amp icillin SA ugmentin SCephalothin SCiprofloxacin SDoxycycline RGentamicin SNitrofura ntoin RSXT S SARS-CoV-2 RNA Resp Ql MARY LOU+[id number] 00:00:00 Test Item Value Reference Range Comments SARS-CoV-2 RNA Resp Ql Not detected [place] [facility] Case MARY LOU+probe (test code = ID: [id number] [id number]) Glucose, Finger Stick\\S\\2017-12-06 15:15:00 Test Item Value Reference Range Comments Glucose, Fingerstick (test code = FSGLUCOSE) 204 mg/dL 70- 99 Hemoglobin A1C\\S\\2017-09-20 14:15:00 Test Item Value Reference Range Comments HgbA1C, Fingerstick (test code = 4548-4) 7.8 % 4-5.6 Sed Rate by Modified [id number] 13:54:00 Test Item Value Reference Range Comments Sed Rate by Modified Westergren (test code = 20 mm/hr 0-3 0 665057) JUAN MANUEL screen, IFA w/rfx Titer/[id number] 13:54:00 Test Item Value Reference Range Comments Anti Nuclear Antibody (test code = 869217) NEG NEGAT SEBASTIAN C-Reactive Protein (CRP)2017-09-17 13:54:00 Test Item Value Reference Range Comments C-Reactive Protein (test code = 864073) 8.4 mg/L <8.0 Rheumatoid [id number] 13:54:00 Test Item Value Reference Range Comments Rheumatoid Factor (test code = 735519) <14 IU/mL <14 Hemoglobin A1C\\S\\2017-05-10 10:00:00 Test Item Value Reference Range Comments HgbA1C, Fingerstick (test code = 4548-4) 8.6 % 4-5.6 C. difficile GDH and Toxin [id number] 00:00:00 Test Item Value Reference Range Comments C. difficile Toxin A/B (test code = 450365) Not Detected C. 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 Chest pain Active Elevated brain natriuretic peptide Active (BNP) level Respiratory failure with hypoxia Active Polycythemia Active COPD (chronic obstructive pulmonary Active disease) Congestive heart failure Active Elevated rheumatoid factor Active Hypoxia Active HTN (hypertension) Active Diabetes mellitus Active Hyperlipidemia, mixed Active Chest pain Active Chest pain Active HTN (hypertension) Active Diabetes mellitus Active Hyperlipidemia, mixed Active Encounter for preventive health Active examination COPD (chronic obstructive pulmonary Active disease) Elevated brain natriuretic peptide Active (BNP) level High risk medication use Active Gait, antalgic Active Screening for hyperlipidemia Active Pterygium of right eye Active HTN (hypertension) Active Polycythemia Active Diabetes mellitus Active Type 2 diabetes mellitus Active Congestive heart failure Active Age-related bone loss Active History of gait disorder Active Hyperlipidemia, mixed Active Elevated rheumatoid factor Active Hypoxia Active Drug-induced diarrhea 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 Diabetic peripheral neuropathy Active Arthralgia of multiple joints Active 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 Uncontrolled type 2 diabetes mellitus Active with hyperglycemia Osteopenia of multiple sites Active Sinus arrhythmia Active Cervical disc prolapse with Active 2018-11-06 13:35:30 radiculopathy Degeneration of cervical intervertebral Active 18:05:24 disc Neck pain Active 2018-11-06 18:05:24 Spinal stenosis in cervical region Active 2018-11-06 18 :05:24 Uncontrolled type 2 diabetes mellitus Active with hyperglycemia High risk medication use Active Screening for hyperlipidemia Active Weakness Active Type 2 diabetes mellitus without Active complications FCI (current) use of insulin Active Localized swelling, mass and lump, head Active Type 2 diabetes mellitus without Active complications Pain in right shoulder Active Pain in left shoulder Active Other chronic pain Active Type 2 diabetes mellitus with Active hyperglycemia Essential (primary) hypertension Active Adjustment disorder with depressed mood Active Pain in right knee Active Chronic rhinitis Active Cough Active Dry eye syndrome of unspecified Active lacrimal gland Type 2 diabetes mellitus with Active unspecified complications Essential (primary) hypertension Active Type 2 diabetes mellitus without Active complications Onychogryphosis Active Diarrhea, unspecified Active Advance Directives Directive Decision Effective Date Termination Date Comments Resuscitation Status: Yes 2020-09-27 Aria Merchant Attempt CPR 21:05:43 : Principal Encounters Start End Encounter Admission Attending Care Care Encounter Date/Time Date/Time Type Type Clinicians Facility Department ID 2020-09-27 2020-10-13 Inpatient [facility] [id number] 10:04:00 10:00:00 Aria lange [id number] 2020-09-14 2020-09-14 [facility] [id number] 11:45:00 11:45:00 ; Freida Parnell MD 2020-09-14 2020-09-[address] [facility] [id number] 11:00:00 11:00:00 ; Pulmonary, Functions 2020-09-14 2020-09-14 Appointment [facility] [id number] 10:30:00 10:30:00 ; [place], ROOM 2020-09-08 2020-09-08 Appointment CARLIE Parnell [facility] [id number] 11:45:00 11:45:00 ; Freida Parnell MD 2020-07-05 2020-07-05 Appointment [facility] [id number] 09:00:00 09:00:00 ; Tomasz Parnell D.O. 2020-03-15 2020-03-15 [facility] [id number] 00:00:00 00:00:00 2020-03-15 2020-03-15 [facility]patient [facility] [id number] 00:00:00 00:00:00 2020-03-15 2020-03-15 [facility]patient [facility] [id number] 00:00:00 00:00:00 2019-12-17 2019-12-17 Appointment CARLIE WillardMICAELA [id number] 10:30:00 10:30:00 ; Feng Hoffman MD 2019 2019 Appointment [facility]IE ParnellMICAELA [id number] 10:00:00 10:00:00 ; Freida Parnell MD 2019-06-13 2019-06-13 [facility] [id number] 10:30:00 10:30:00 ; Feng Hoffman MD 2019-03-14 2019-03-14 [facility] [id number] 10:00:00 10:00:00 ; ABDI khoury [facility] 2019-03-07 2019-03-07 Appointment CARLIE Willard [facility] [id number] 09:45:00 09:45:00 ; Feng Hoffman MD 2019-01-23 2019-01-23 Appointment CARLIE WillardTW [id number] 13:00:00 13:00:00 ; Feng Hoffman MD 2018-11-06 2018-11-06 [facility] David Hernandez [id number] 00:00:00 00:00:00 [place]: Surgical Surgical [id number] [facility], [address], [place] [address], Ph. 2018-08-29 2018-08-29 Appointment [facility]IE Reina [facility] [id number] 13:50:00 13:50:00 ; Yojana Reina MD 2017-12-06 2017-12-06 Outpatient [facility] [id number] 15:15:00 15:15:00 Sou[facility]a Children [id number] s [id number] and [id number] [facility] [place] 2017-09-20 2017-09-20 Outpatient [facility] [id number] 14:15:00 14:15:00 Soumya Children [id number] s [id number] and [id number] [facility] 2017-05-10 2017-05-10 Outpatient [facility] [id number] 10:00:00 10:00:00 Soumya Children [id number] s [id number] [facility], [place] 2017-02-22 2017-02-22 Outpatient Demetrio Schwab [facility] [id number] 13:45:00 13:45:00 Children [id number] s [id number] and [id number] [facility] 2017-01-19 2017-01-19 Outpatient NASRIN ManzanoSami [place] [id number] 09:00:00 09:00:00 Soumya Children [id number] s [id number] and [id number] [facility] Family History Family Member Diagnosis Comments Start Date Stop Date Mother Family history of diabetes mellitus Mother Family history of hypertension Immunizations Ordered Immunization Filled Immunization Date Status Commen ts Refusal Reason Name Name influenza, unspecified 2020-09-14 Completed formulation 00:00:00 Pneumococcal 2020-09-14 Completed Conjugate, unspecified 00:00:00 formulation Pneumococcal 2020-07-05 Completed polysaccharide 10:25:00 vaccine, 23 valent Fluzone High-Dose 0.5 2020-07-05 Completed ML Intramuscular 00:00:00 Suspension Prefilled Syringe Prevnar 13 2019 Completed Intramuscular 11:52:00 Suspension Fluarix Quadrivalent 2019 Completed 0.5 ML Intramuscular 11:51:00 Suspension Prefilled Syringe influenza, unspecified 2017-07-15 Completed formulation 00:00:00 Payers Payer Name Policy Type Policy Number Effective Date Expiration D ate Plan of Treatment Planned Activity Planned Date Details Comments Future Scheduled Test [code = ] Future Scheduled Test [code = ] Future Scheduled Test [code = ] Future Scheduled Test [code = ] Social History Smoking Status Start Date Stop Date Never Smoker Ex-smoker 2020-10-13 09:51:11 2020-10-13 09:51:11 Vital Signs Vital Name Observation Time Observation Value Comments BP Diastolic 2018-11-06 00:00:00 70 mm[Hg] Height 2018-11-06 00:00:00 64 [in_i] BMI (Body Mass Index) 2018-11-06 00:00:00 25.6 kg/m2 BP Systolic 2018-11-06 00:00:00 135 mm[Hg] Body Weight 2018-11-06 00:00:00 149 [lb_av] Body Height 2020-10-13 15:51:10 61.0 [in_i] Body Weight 2020-10-13 09:40:14 142.9 [lb_av] Body Temperature 2020-10-13 07:58:12 97.1 [degF] Oxygen saturation in Arterial blood 2020-10-13 07:16:22 93.0 % by Pulse oximetry Oxygen saturation in Arterial blood 2020-10-13 07:16:08 92.0 % by Pulse oximetry Diastolic Blood Pressure 2020-10-13 07:12:42 107.0 mm[Hg] Systolic Blood Pressure 2020-10-13 07:12:42 174.0 mm[Hg] Heart Rate 2020-10-13 00:56:44 64.0 /min Respiratory Rate 2020-10-13 00:56:44 16.0 /min Body Temperature 2020-10-13 00:56:44 98.0 [degF] Diastolic Blood Pressure 2020-10-13 00:56:44 74.0 mm[Hg] Systolic Blood Pressure 2020-10-13 00:56:44 138.0 mm[Hg] Body Temperature 2020-10-12 20:20:27 98.0 [degF] Heart Rate 2020-10-12 12:29:21 64.0 /min Respiratory Rate 2020-10-12 12:29:21 18.0 /min Diastolic Blood Pressure 2020-10-12 12:29:21 88.0 mm[Hg] Systolic Blood Pressure 2020-10-12 12:29:21 143.0 mm[Hg] Body Weight 2020-10-12 08:33:38 141.8 [lb_av] Oxygen saturation in Arterial blood 2020-10-12 07:19:05 94.0 % by Pulse oximetry Heart Rate 2020-10-12 01:04:10 76.0 /min Respiratory Rate 2020-10-12 01:04:10 17.0 /min Body Weight 2020-10-09 14:53:17 144.0 [lb_av] Systolic blood pressure 2020-09-08 12:01:00 126 mm[Hg] Diastolic blood pressure 2020-09-08 12:01:00 80 mm[Hg] Body height 2020-09-08 12:01:00 63 [in_us] Body temperature 2020-09-08 12:01:00 97.4 [degF] Heart Rate 2020-09-08 12:01:00 80 /min Respiratory rate 2020-09-08 12:01:00 20 /min O2 SAT 2020-09-08 12:01:00 84 % Source: RA Body height 2020-07-05 09:25:00 63 [in_us] Weight 2020-07-05 09:25:00 151 [lb_av] Body mass index (BMI) [Ratio] 2020-07-05 09:25:00 26.75 kg/m2 Body temperature 2020-07-05 09:25:00 96.2 [degF] Heart Rate 2020-07-05 09:25:00 80 /min Respiratory rate 2020-07-05 09:25:00 18 /min O2 SAT 2020-07-05 09:25:00 95 % Source: RA Systolic blood pressure 2020-07-05 09:25:00 114 mm[Hg] Diastolic blood pressure 2020-07-05 09:25:00 72 mm[Hg] Hospital Discharge Instructions NameDatesDetailsInstructions not documentedNameDatesDetailsInstructions not documented1. Cervical disc prolapse with radiculopathy 2. Degeneration of cervical intervertebral disc 3. Neckpain 4. Spinal stenosis in cervical region Discussion Note: None recorded. Patient educational handouts: No information available.
[2020-11-03 17:52] LABS: C-REACTIVE PROTEIN 12.4 mg/L (<10.0)
[2020-11-03] MEDS ORDERED: NORMAL SALINE 500 ML IV ONE (17:55)
[2020-11-03 18:12] LABS: VENOUS BLOOD BASE EXCESS 0.5 mmol/L; VENOUS BLOOD HCO3 26.7 mmol/L (20-32); VENOUS BLOOD PCO2 48.3 mmHg (35-63); VENOUS BLOOD PH 7.36 (7.30-7.42)
[2020-11-03 18:29] LABS: APPEARANCE,URINE CLEAR; BILIRUBIN,URINE NEGATIVE (NEGATIVE); COLOR,URINE YELLOW; GLUCOSE, URINE NEGATIVE (NEGATIVE); KETONES,URINE NEGATIVE (NEGATIVE); LEUKOCYTE ESTERASE,URINE NEGATIVE (NEGATIVE); NITRITE,URINE NEGATIVE (NEGATIVE); PROTEIN,URINE 30 mg/dL (NEGATIVE); URINE SPECIFIC GRAVITY 1.011; UROBILINOGEN,URINE NEGATIVE mg/dL (<2.0)
--- NOTE | 2020-11-03 19:10 | EKG REPORT ---
SEVERITY:- ABNORMAL ECG - SINUS RHYTHM LEFT ATRIAL ABNORMALITY BORDERLINE RIGHT AXIS DEVIATION NONSPECIFIC T ABNORMALITIES, INFERIOR LEADS OLD ANTEROSEPTAL NC : Confirmed by: Ralf Cabrera MD 03-Nov-2020 19:10:30
--- NOTE | 2020-11-03 19:45 | RADIOLOGY REPORT (SQ) ---
EXAM DESCRIPTION: CTA CHEST IMAGES COMPLETED DATE/TIME: 11/03/2020 7:19 pm REASON FOR STUDY: sob, elevated dimer COMPARISON: None. TECHNIQUE: CT scan of the chest performed using helical scanning technique with dynamic intravenous contrast injection. Images reviewed with lung, soft tissue and bone windows. Reconstructed coronal and sagittal MPR images reviewed. Additional 3 dimensional post-processing performed to develop Maximal Intensity Projection images (N[place] P). All images stored on PACS. All CT scanners at this facility use dose modulation, iterative reconstruction, and/or weight based d osing when appropriate to reduce radiation dose to as low as reasonably achievable (ALARA). [facility]: Dose Right [facility]: CareDose [facility]: Dose Right [facility]: Teradose 4D [facility]: lmbang CONTRAST TYPE AND DOSE: contrast/concentration: Isovue 350.00 mmol/ml; Total Contrast Delivered: 75. 0 ml; Total Saline Delivered: 66.0 ml Contrast bolus optimized for the pulmonary arteries. Not diagnostic for the aorta. RENAL FUNCTION: BUN 22 creatinine 1.29 RADIATION DOSE: CT Rad equipment meets quality standard of care and radiation dose reduction techniq ues were employed. CTDIvol: 14.6 - 26.4 mGy. DLP: 517 mGy-cm. . LIMITATIONS: None. FINDINGS: LUNGS AND PLEURA: Mild paraseptal emphysematous changes. Mild pulmonary fibrosis. Cannot exclude a limited acute infiltrate in the superior aspect of the right lower lobe. AORTA AND GREAT VESSELS: No aneurysm. Contrast bolus not optimized for the aorta. HEART: No pericardial effusion. Moderate to marked coronary artery calcifications. PULMONARY ARTERIES: Bilateral emboli seen in the main pulmonary arteries and in the right middle lobe and lower lobe branches and in the left lingular branch. HILAR AND MEDIASTINAL STRUCTURES: No identified masses or abnormal nodes. HARDWARE: None in the chest. UPPER ABDOMEN: No significant findings. Limited exam. THYROID AND OTHER SOFT TISSUES: No masses. No adenopathy. BONES: No acute or significant finding. 3D MIPS: Confirm above findings. OTHER: No other significant finding. IMPRESSION: 1. Bilateral pulmonary emboli as described. Moderate clot burden. 2. Chronic lung changes. Cannot exclude a limited acute infiltrate in the superior aspect of the ri ght lower lobe. COMMENT: Quality ID # [id number]: Final reports with documentation of one or more dose reduction techniques (e.g., Automated exposure control, adjustment of the mA and/or kV according to patient size, use of iterative reconstruction technique) TECHNICAL DOCUMENTATION: JOB ID: [id number] 2010 [employer]- All Rights Reserved Reading location - IP/workstation name: [email or web address]
[2020-11-03] MEDS ORDERED: HEPARIN SOD (PORCINE) 1,000 UNIT/ML 10 ML VIAL IV ONE (19:58)
[2020-11-03 20:02] LABS: INTERNATIONAL RATION (INR) 0.88; PROTHROMBIN TIME 12.2 SEC (11.4-15.4)
[2020-11-03 20:11] LABS: ARTERIAL BLOOD BASE EXCESS 1.6 mmol/L; ARTERIAL BLOOD FIO2 6L; ARTERIAL BLOOD H2CO3 1.05 mmol/L (1.05-1.35); ARTERIAL BLOOD HCO3 24.7 mmol/L (20-24); ARTERIAL BLOOD O2 SATURATION 91.5 % (94-98); ARTERIAL BLOOD PCO2 34.8 mmHg (35-45); ARTERIAL BLOOD PH 7.47 (7.35-7.45); ARTERIAL BLOOD PO2 56.9 mmHg (80-100); ARTERIAL BLOOD TOTAL CO2 25.8 mmol/L (21-25)
[2020-11-03] MEDS ORDERED: ALBUTEROL SULFATE 0.083% NEB 2.5 MG/3 ML AMPUL NEB PRN (20:41)
[2020-11-03] MEDS ORDERED: ACETAMINOPHEN 325 MG TABLET PO PRN (20:41)
[2020-11-03] MEDS ORDERED: GLUCAGON,HUMAN RECOMB 1 MG INJ IM PRN (20:55)
[2020-11-03] MEDS ORDERED: DEXTROSE 40% GEL 15 GM TUBE PO PRN ×2 (20:55)
[2020-11-03] MEDS ORDERED: DEXTROSE 50%-WATER 25 GM/50 ML DISP.SYRIN IV PRN ×2 (20:55)
[2020-11-03] MEDS: HEPARIN SODIUM,PORCINE/D5W 25,000 UNIT/250 ML RTUINJ IV PRN (20:59)
--- NOTE | 2020-11-03 21:18 | PDOC H&P ---
History of Present Illness Admission Date/PCP: 11/03/20 20:11 RAMILA ESCALONA MD Patient complains of: Shortness of breath History of Present Illness: DAVIN HERNANDEZ is a 85 year old female The patient is on chronic oxygen 3.5 L/min via nasal cannula for advanced COPD a nd congestive heart failure secondary to diastolic dysfunction. She has chronic shortness of breath which she tolerates fairly well. For the last 24 hours she was developing increasing shortness of breath, she could not speak in full sentences. Eventually ambulance was called. She was put on nonrebreather mask but later when she was tapered down to 6 L/min nasal oxygen. She is breathing comfortably now even though her oxygen saturation is 90 to 92%. She said her breathing is back to so-called normal. Denies any chest pain. She did not have any leg swelling. She has some chronic diarrhea. No nausea or vomiting. The patient is compliant with her medications. When I saw her she did not appear to be in any distress. She was diagnosed with pulmonary emboli, she was started on intravenous heparin drip. Past Medical History Cardiac Medical History: Reports: Congestive Heart Failure - Diastolic dysfunction, pulmonary hypertension, Myocardial Infarction, Hyperlipidema, Hypertension - medicated Denies: Coronary Artery Disease, DVT, Pulmonary Embolism Pulmonary Medical History: Reports: Chronic Obstructive Pulmonary Disease (COPD) Denies: Asthma, Bronchitis, Pneumonia Neurological Medical History: Denies: Ischemic CVA, Seizures Endocrine Medical History: Reports: Diabetes Mellitus Type 2 Renal/ Medical History: Reports: None GI Medical History: Reports: None Denies: Hepatitis, Hiatal Hernia Musculoskeltal Medical History: Reports: Arthritis Skin Medical History: Reports: None Psychiatric Medical History: Denies: Depression Hematology: Denies: Anemia, Sickle Cell Disease Past Surgical History Past Surgical History: Reports: Carotid Endarterectomy, Tubal Ligation, Vascular Surgery - right carotid "cleaned out" Denies: Amputation, Hysterectomy, Mastectomy, Pacemaker Social History Smoking Status: Unknown if Ever Smoked Frequency of Alcohol Use: None Hx Recreational Drug Use: No Drugs: None Hx Prescription Drug Abuse: No - Advance Directive Resuscitation Status: Do Not Resuscitate Surrogate healthcare decision maker:: Her son Family History Family History: Reviewed & Not Pertinent Parental Family History Reviewed: Yes Children Family History Reviewed: Yes Sibling(s) Family History Reviewed.: Yes Medication/Allergy Home Medications: Insulin Glargine,Hum.rec.anlog [Lantus Insulin 100 Unit/mL Insulin Pen] 14 unit SUBCUT QPM 09/21/20 Metoprolol Succinate [Toprol Xl 25 mg Tab.sr] 25 mg PO DAILY 09/21/20 Omeprazole 20 mg PO DAILY 09/21/20 Telmisartan/Amlodipine [Telmisartan-Amlodipine 40-10] 1 each PO DAILY 09/21/20 Umeclidinium Brm/Vilanterol Tr [Anoro Ellipta 62.5-25 Mcg INH] 1 each IH DAILY 09/21/20 Glimepiride [Amaryl 4 mg Tablet] 4 mg PO DAILY 09/23/20 Gabapentin [Neurontin 100 mg Capsule] 200 mg PO Q12 capsule 09/27/20 Cetirizine HCl [Zyrtec 10 mg Tablet] 10 mg PO DAILY 11/03/20 Cyclosporine 0.05% Oph Emulsio [Restasis 0.05% Oph Emulsion Pf 0.4 ml] 1 drop OU Q12 11/03/20 Furosemide [Lasix 20 mg Tablet] 20 mg PO QAM 11/03/20 Allergies/Adverse Reactions: Sulfa (Sulfonamide Antibiotics) Allergy (Unknown, Verified 09/20/20 19:36) metformin Allergy (Verified 09/20/20 19:36) Review of Systems Constitutional: PRESENT: weakness Eyes: ABSENT: visual disturbances Ears: ABSENT: hearing changes Cardiovascular: PRESENT: dyspnea on exertion. ABSENT: chest pain, edema, orthropnea, palpitations Respiratory: PRESENT: dyspnea. ABSENT: cough, hemoptysis Gastrointestinal: PRESENT: diarrhea - Chronic diarrhea, mild. ABSENT: abdominal pain, constipation, hematemesis, hematochezia, nausea, vomiting Genitourinary: ABSENT: dysuria, hematuria Neurological: ABSENT: abnormal gait, abnormal speech, confusion, dizziness, focal weakness, syncope Physical Exam Vital Signs: Temp Pulse Resp BP Pulse Ox 22 H 183/113 H 91 L 11/03/20 20:01 11/03/20 20:01 11/03/20 20:01 Intake & Output 11/02/20 11/03/20 11/04/20 06:59 06:59 06:59 Output Total 400 Balance -400 Weight 69.445 kg General appearance: PRESENT: no acute distress, cooperative Head exam: PRESENT: atraumatic, normocephalic Eye exam: PRESENT: conjunctiva pink, EOMI, PERRLA. ABSENT: scleral icterus Ear exam: PRESENT: normal external ear exam Neck exam: ABSENT: carotid bruit, JVD, lymphadenopathy, thyromegaly Respiratory exam: PRESENT: rhonchi Cardiovascular exam: PRESENT: RRR. ABSENT: diastolic murmur, rubs, systolic murmur Pulses: PRESENT: normal dorsalis pedis pul Vascular exam: PRESENT: normal capillary refill GI/Abdominal exam: PRESENT: normal bowel sounds, soft. ABSENT: distended, guarding, mass, organolmegaly, rebound, tenderness Rectal exam: PRESENT: deferred Musculoskeletal exam: PRESENT: ambulatory Neurological exam: PRESENT: alert, oriented to person, oriented to place, oriented to time, oriented to situation Results Laboratory Results: 11/03/20 14:30 11/03/20 14:30 11/03/20 11/03/20 11/03/20 14:30 14:30 14:30 WBC 11.1 H RBC 5.79 H Hgb 15.7 H Hct 48.3 H MCV 83 MCH 27.1 MCHC 32.5 RDW 17.0 H Plt Count 154 Seg Neutrophils % 74.4 Carbonic Acid HCO3/H2CO3 Ratio ABG pH ABG pCO2 ABG pO2 ABG HCO3 ABG O2 Saturation ABG Base Excess VBG pH VBG pCO2 VBG HCO3 VBG Base Excess FiO2 Sodium 140.1 Potassium 4.4 Chloride 104 Carbon Dioxide 26 Anion Gap 10 BUN 22 H Creatinine 1.29 H Est GFR ( Amer) 47 L Glucose 230 H Calcium 9.3 Ferritin 263.00 Total Bilirubin 0.8 AST 27 Alkaline Phosphatase 155 H C-Reactive Protein 12.4 H Total Protein 6.8 Albumin 4.0 Urine Color Urine Appearance Urine pH Ur Specific [place] Urine Protein Urine Glucose (UA) Urine Ketones Urine Blood Urine Nitrite Ur Leukocyte Esterase Urine WBC (Auto) Urine RBC (Auto) 11/03/20 11/03/20 11/03/20 15:56 17:02 17:44 WBC RBC Hgb Hct MCV MCH MCHC RDW Plt Count Seg Neutrophils % Carbonic Acid HCO3/H2CO3 Ratio ABG pH ABG pCO2 ABG pO2 ABG HCO3 ABG O2 Saturation ABG Base Excess VBG pH Cancelled 7.36 VBG pCO2 Cancelled 48.3 VBG HCO3 Cancelled 26.7 VBG Base Excess Cancelled 0.5 FiO2 Sodium Potassium Chloride Carbon Dioxide Anion Gap BUN Creatinine Est GFR ( Amer) Glucose Calcium Ferritin Total Bilirubin AST Alkaline Phosphatase C-Reactive Protein Total Protein Albumin Urine Color YELLOW Urine Appearance CLEAR Urine pH 6.0 Ur Specific [place] 1.011 Urine Protein 30 H Urine Glucose (UA) NEGATIVE Urine Ketones NEGATIVE Urine Blood NEGATIVE Urine Nitrite NEGATIVE Ur Leukocyte Esterase NEGATIVE Urine WBC (Auto) 1 Urine RBC (Auto) 0 11/03/20 19:55 WBC RBC Hgb Hct MCV MCH MCHC RDW Plt Count Seg Neutrophils % Carbonic Acid 1.05 HCO3/H2CO3 Ratio 23:1 ABG pH 7.47 H ABG pCO2 34.8 L ABG pO2 56.9 L ABG HCO3 24.7 H ABG O2 Saturation 91.5 L ABG Base Excess 1.6 VBG pH VBG pCO2 VBG HCO3 VBG Base Excess FiO2 6L Sodium Potassium Chloride Carbon Dioxide Anion Gap BUN Creatinine Est GFR ( Amer) Glucose Calcium Ferritin Total Bilirubin AST Alkaline Phosphatase C-Reactive Protein Total Protein Albumin Urine Color Urine Appearance Urine pH Ur Specific [place] Urine Protein Urine Glucose (UA) Urine Ketones Urine Blood Urine Nitrite Ur Leukocyte Esterase Urine WBC (Auto) Urine RBC (Auto) 11/03/20 11/03/20 11/03/20 14:30 14:30 18:33 Troponin I 0.070 0.081 NT-Pro-B Natriuret Pep 6930 H EKG Comments: Sinus rhythm at a rate of 83/min. Nonspecific T wave abnormalities. Unchanged compared to previous EKG. Impressions: Chest X-Ray 11/03/20 15:20 IMPRESSION: Hyperinflated lungs with chronic pleural and parenchymal scarring 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 No evidence of acute cardiopulmonary disease. Chest/Abdomen CTA 11/03/20 17:55 IMPRESSION: 1. Bilateral pulmonary emboli as described. Moderate clot burden. 2. Chronic lung changes. Cannot exclude a limited acute infiltrate in the superior aspect of the right lower lobe. Assessment and Plan - Diagnosis (1) Bilateral pulmonary embolism Is this a current diagnosis for this admission?: Yes Plan: Patient was started on intravenous heparin drip. She is hemodynamically stable. She is fairly hypoxic but she has significant chronic hypoxemia. Her respiratory distress has resolved. Continue intravenous heparin drip for 24 to 48 hours and if she remains stable she can be converted to oral anticoagulant. Physical examination is not suspicious for DVT but she is going to have a venous ultrasound of the lower extremities. She is going to have an echocardiogram. At this point she is not a candidate for thrombolytic treatment. (2) Acute on chronic respiratory failure with hypoxia Is this a current diagnosis for this admission?: Yes Plan: She is on 3-1/2 L of oxygen per minute at home. Now she is on 6 L of oxygen. Oxygen saturation 90 to 92%. She has no more distress. (3) COPD (chronic obstructive pulmonary disease) Qualifiers: COPD type: unspecified COPD Qualified Code(s): J44.9 - Chronic obstructive pulmonary disease, unspecified Is this a current diagnosis for this admission?: Yes Plan: Continue inhalers. Albuterol as needed. No sign of COPD exacerbation. No wheezing. (4) Diastolic CHF, chronic Is this a current diagnosis for this admission?: Yes Plan: Creatinine is slightly above baseline. I am going to hold furosemide. She has no sign of ongoing heart failure. Furosemide should be resumed when it is appropriate. (5) Severe pulmonary arterial systolic hypertension Is this a current diagnosis for this admission?: Yes Plan: Unfortunately she has baseline severe pulmonary hypertension which is definitely worse with acute pulmonary emboli. (6) Hypertension Qualifiers: Hypertension type: essential hypertension Qualified Code(s): I10 - Essential (primary) hypertension Is this a current diagnosis for this admission?: Yes Plan: Continue metoprolol XL 25 mg, amlodipine 10 mg. She is on telmisartan 40 mg which is not on formulary. I am going to replace it with valsartan, her blood pressure is elevated therefore I am ordering 320 mg. Monitor blood pressure, adjust medications as needed. (7) DM type 2 (diabetes mellitus, type 2) Qualifiers: Diabetes mellitus custodial insulin use: with local intermodal truck driver use Diabetes mellitus complication status: with hyperglycemia Qualified Code(s): E11.65 - Type 2 diabetes mellitus with hyperglycemia; Z79.4 - director long term care (current) use of insulin Is this a current diagnosis for this admission?: Yes Plan: I am going to hold sulfonylurea now. Continue Lantus insulin daily. As a sulfonylurea is on hold I ordered regularly scheduled Humalog insulin before each meal. Hemoglobin A1c. Diabetic diet. - Plan Summary Summary: Patient was admitted with acute on chronic hypoxic respiratory failure secondary to bilateral pulmonary emboli to intermediate care unit. She is being treated with intravenous heparin drip. - Time Time Spent with patient: 35 or more minutes Medications reviewed and adjusted accordingly: Yes Anticipated Discharge Disposition: Home, Self Care Anticipated Discharge Timeframe: within 72 hours - Inpatient Certification Based on my medical assessment, after consideration of the patient's comorbidities, presenting symptoms, or acuity I expect that the services needed warrant INPATIENT care.: Yes I certify that my determination is in accordance with my understanding of Medicare's requirements for reasonable and necessary INPATIENT services [42 CFR 412.3e].: Yes Medical Necessity: Failure to Improve With Outpatient Therapy, Need Close Monitoring Due to Risk of Patient Decompensation, Need For Continuous Telemetry Monitoring
[2020-11-03] MEDS: GABAPENTIN 100 MG CAPSULE PO SCH (22:34)
[2020-11-03] MEDS: CYCLOSPORINE 0.05% OPH EMULSIO 0.4 ML DROPERETTE OU SCH (22:35)
[2020-11-03] MEDS ORDERED: HEPARIN SOD (PORCINE) 1,000 UNIT/ML 10 ML VIAL IV PRN (22:59)
[2020-11-04] MEDS: INSULIN LISPRO 100 UNIT/ML 3 ML VIAL SUBCUT SCH ×8 (01:04→23:42)
[2020-11-04 02:53] LABS: ABSOLUTE BASOPHILS # (AUTO) 0.1 10^3/uL (0.0-0.2); ABSOLUTE EOSINOPHILS # (AUTO) 0.1 10^3/uL (0.0-0.6); ABSOLUTE LYMPHOCYTES (AUTO) 2.6 10^3/uL (0.5-4.7); ABSOLUTE MONOCYTES (AUTO) 0.8 10^3/uL (0.1-1.4); ABSOLUTE NEUT (AUTO) 7.6 10^3/uL (1.7-8.2); BASOPHILS % (AUTO) 1.2 % (0-2); EOSINOPHILS % (AUTO) 0.7 % (0-6); HEMATOCRIT 43.5 % (36.0-47.0); HEMOGLOBIN 14.3 g/dL (12.0-15.5); LYMPHOCYTES % (AUTO) 23.2 % (13-45); MEAN CORPUSCULAR HEMOGLOBIN 27.1 pg (27.0-33.4); MEAN CORPUSCULAR HGB CONC 32.9 g/dL (32.0-36.0); MEAN CORPUSCULAR VOLUME 82 fl (80-97); MONOCYTES % (AUTO) 7.4 % (3-13); PLATELET COUNT 120 10^3/uL (150-450); RED BLOOD COUNT 5.29 10^6/uL (3.72-5.28); RED CELL DISTRIBUTION WIDTH 16.5 % (11.5-14.0); SEGMENTED NEUTROPHILS % (AUTO) 67.5 % (42-78); TOTAL CELLS COUNTED % (AUTO) 100 %; WHITE BLOOD COUNT 11.3 10^3/uL (4.0-10.5)
[2020-11-04 03:49] LABS: ALBUMIN 3.3 g/dL (3.5-5.0); ALKALINE PHOSPHATASE 130 U/L (38-126); ANION GAP 7 (5-19); ASPARTATE AMINO TRANSFERASE 20 U/L (14-36); BILIRUBIN,DIRECT 0.2 mg/dL (0.0-0.4); BILIRUBIN,TOTAL 0.5 mg/dL (0.2-1.3); BLOOD UREA NITROGEN 19 mg/dL (7-20); CALCIUM 8.7 mg/dL (8.4-10.2); CARBON DIOXIDE 25 mmol/L (22-30); CHLORIDE 109 mmol/L (98-107); GLUCOSE 120 mg/dL (75-110); POTASSIUM 3.8 mmol/L (3.6-5.0)
[2020-11-04] MEDS: METOPROLOL SUCCINATE 25 MG TAB.SR.24H PO SCH (09:43)
[2020-11-04] MEDS: CETIRIZINE 10 MG TABLET PO SCH (09:43)
[2020-11-04] MEDS: VALSARTAN 160 MG TABLET PO SCH (09:43)
[2020-11-04] MEDS: AMLODIPINE BESYLATE 10 MG TABLET PO SCH (09:43)
[2020-11-04] MEDS: GABAPENTIN 100 MG CAPSULE PO SCH ×2 (09:43→22:23)
[2020-11-04] MEDS: PANTOPRAZOLE SODIUM 20 MG TABLET.DR PO SCH (09:43)
[2020-11-04] MEDS: INSULIN GLARGINE,HUM.REC.ANLOG 1,000 UNIT/10 ML VIAL SUBCUT SCH (09:44)
[2020-11-04] MEDS ORDERED: (PENDING PHARMACY ID) (Omeprazole [Omeprazole] 20 MG Capsule.Dr) PO SCH (10:00)
[2020-11-04] MEDS ORDERED: (PENDING PHARMACY ID) (Umeclidinium Brm/Vilanterol Tr [Anoro Ellipta 62.5-25 Mcg Inh] 1 EA IH SCH (10:00)
[2020-11-04] MEDS: CYCLOSPORINE 0.05% OPH EMULSIO 0.4 ML DROPERETTE OU SCH ×2 (11:27→22:23)
--- NOTE | 2020-11-04 15:32 | RADIOLOGY REPORT (SQ) ---
EXAM DESCRIPTION: VENOUS BILATERAL LOWER IMAGES COMPLETED DATE/TIME: 11/04/2020 3:17 pm REASON FOR STUDY: PULMONARY EMBOLI COMPARISON: None. TECHNIQUE: Dynamic and static mi scale and color images acquired of both lower extremity venous sy stems. Selected spectral images acquired with additional compression and augmentation maneuvers. Imag es stored on PACS. LIMITATIONS: None. FINDINGS: RIGHT LEG COMMON FEMORAL AND FEMORAL: Normal phasicity, compression and augmentation. No visualized echogenic m aterial on mi scale. No defects on color images. POPLITEAL: Partially occlusive thrombus is seen within the popliteal vein. CALF VESSELS: Occlusive thrombus is seen within the caudal peroneal vein. GSV AND SSV: Normal compression. No visualized echogenic material on mi scale. No defects on color images. ANY DEEP VENOUS INSUFFICIENCY: Not evaluated. ANY EVIDENCE OF POPLITEAL CYST: No. OTHER: No other significant finding. LEFT LEG COMMON FEMORAL AND FEMORAL: Normal phasicity, compression and augmentation. No visualized echogenic m aterial on mi scale. No defects on color images. POPLITEAL: Normal compression and augmentation. No visualized echogenic material on mi scale. No de fects on color images. CALF VESSELS: Normal compression and augmentation. No visualized echogenic material on mi scale. No defects on color images. GSV AND SSV: Normal compression. No visualized echogenic material on mi scale. No defects on color images. ANY DEEP VENOUS INSUFFICIENCY: Not evaluated. ANY EVIDENCE POPLITEAL CYST: No. OTHER: No other significant finding. IMPRESSION: Occlusive and nonocclusive thrombus are seen within the right peroneal and popliteal vei ns. No left lower extremity thrombus. TECHNICAL DOCUMENTATION: JOB ID: [id number] [employer]- All Rights Reserved Reading location - IP/workstation name: [email or web address]
--- NOTE | 2020-11-04 17:20 | PDOC PROGRESS REPORT ---
Subjective Date:: 11/04/20 Subjective:: Comfortably. Ultrasound called and she does have DVTs in addition to the pulmonary emboli. Currently on 6 L nasal cannula but appears to be breathing comfortably. Reason For Visit: PULMONARY EMBOLISM Physical Exam Vital Signs: Temp Pulse Resp BP Pulse Ox 97.4 F 72 19 122/67 90 L 11/04/20 15:53 11/04/20 15:53 11/04/20 15:53 11/04/20 15:53 11/04/20 15:53 Intake & Output 11/03/20 11/04/20 11/05/20 06:59 06:59 06:59 Intake Total 760 125 Output Total 1150 Balance -390 125 Weight 66.1 kg Respiratory exam: PRESENT: clear to auscultation nicolas Cardiovascular exam: PRESENT: RRR, +S1, +S2 GI/Abdominal exam: PRESENT: soft. ABSENT: tenderness Extremities exam: PRESENT: other - Right calf diameter slightly bigger than the left Results Laboratory Results: 11/04/20 02:30 11/04/20 02:30 11/03/20 11/03/20 11/03/20 14:30 17:02 17:44 WBC RBC Hgb Hct MCV MCH MCHC RDW Plt Count Seg Neutrophils % Carbonic Acid HCO3/H2CO3 Ratio ABG pH ABG pCO2 ABG pO2 ABG HCO3 ABG O2 Saturation ABG Base Excess VBG pH 7.36 VBG pCO2 48.3 VBG HCO3 26.7 VBG Base Excess 0.5 FiO2 Sodium Potassium Chloride Carbon Dioxide Anion Gap BUN Creatinine Est GFR ( Amer) Glucose Calcium Magnesium Ferritin 263.00 Total Bilirubin AST Alkaline Phosphatase C-Reactive Protein 12.4 H Total Protein Albumin TSH Urine Color YELLOW Urine Appearance CLEAR Urine pH 6.0 Ur Specific [place] 1.011 Urine Protein 30 H Urine Glucose (UA) NEGATIVE Urine Ketones NEGATIVE Urine Blood NEGATIVE Urine Nitrite NEGATIVE Ur Leukocyte Esterase NEGATIVE Urine WBC (Auto) 1 Urine RBC (Auto) 0 11/03/20 11/04/20 11/04/20 19:55 02:30 02:30 WBC 11.3 H RBC 5.29 H Hgb 14.3 Hct 43.5 MCV 82 MCH 27.1 MCHC 32.9 RDW 16.5 H Plt Count 120 L Seg Neutrophils % 67.5 Carbonic Acid 1.05 HCO3/H2CO3 Ratio 23:1 ABG pH 7.47 H ABG pCO2 34.8 L ABG pO2 56.9 L ABG HCO3 24.7 H ABG O2 Saturation 91.5 L ABG Base Excess 1.6 VBG pH VBG pCO2 VBG HCO3 VBG Base Excess FiO2 6L Sodium 140.6 Potassium 3.8 Chloride 109 H Carbon Dioxide 25 Anion Gap 7 BUN 19 Creatinine 1.06 Est GFR ( Amer) 59 L Glucose 120 H Calcium 8.7 Magnesium 1.9 Ferritin Total Bilirubin 0.5 AST 20 Alkaline Phosphatase 130 H C-Reactive Protein Total Protein 6.0 L Albumin 3.3 L TSH Urine Color Urine Appearance Urine pH Ur Specific [place] Urine Protein Urine Glucose (UA) Urine Ketones Urine Blood Urine Nitrite Ur Leukocyte Esterase Urine WBC (Auto) Urine RBC (Auto) 11/04/20 11/04/20 02:30 04:12 WBC RBC Hgb Hct MCV MCH MCHC RDW Plt Count Seg Neutrophils % Carbonic Acid HCO3/H2CO3 Ratio ABG pH ABG pCO2 ABG pO2 ABG HCO3 ABG O2 Saturation ABG Base Excess VBG pH VBG pCO2 VBG HCO3 VBG Base Excess FiO2 Sodium Potassium Chloride Carbon Dioxide Anion Gap BUN Creatinine Est GFR ( Amer) Glucose Calcium Magnesium Ferritin Total Bilirubin AST Alkaline Phosphatase C-Reactive Protein Total Protein Albumin TSH Cancelled 1.88 Urine Color Urine Appearance Urine pH Ur Specific [place] Urine Protein Urine Glucose (UA) Urine Ketones Urine Blood Urine Nitrite Ur Leukocyte Esterase Urine WBC (Auto) Urine RBC (Auto) 11/03/20 11/03/20 11/03/20 14:30 14:30 18:33 Troponin I 0.070 0.081 NT-Pro-B Natriuret Pep 6930 H 11/03/20 11/04/20 11/04/20 22:14 02:30 09:42 Troponin I 0.083 0.079 0.060 NT-Pro-B Natriuret Pep Impressions: Chest X-Ray 11/03/20 15:20 IMPRESSION: Hyperinflated lungs with chronic pleural and parenchymal scarring 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 No evidence of acute cardiopulmonary disease. Chest/Abdomen CTA 11/03/20 17:55 IMPRESSION: 1. Bilateral pulmonary emboli as described. Moderate clot burden. 2. Chronic lung changes. Cannot exclude a limited acute infiltrate in the superior aspect of the right lower lobe. Venous Doppler Study 11/04/20 00:00 IMPRESSION: Occlusive and nonocclusive thrombus are seen within the right peroneal and popliteal veins. No left lower extremity thrombus. Assessment and Plan - Diagnosis (1) Bilateral pulmonary embolism Is this a current diagnosis for this admission?: Yes (2) Acute on chronic respiratory failure with hypoxia Is this a current diagnosis for this admission?: Yes (3) COPD (chronic obstructive pulmonary disease) Qualifiers: COPD type: unspecified COPD Qualified Code(s): J44.9 - Chronic obstructive pulmonary disease, unspecified Is this a current diagnosis for this admission?: Yes (4) Diastolic CHF, chronic Is this a current diagnosis for this admission?: Yes (5) Severe pulmonary arterial systolic hypertension Is this a current diagnosis for this admission?: Yes (6) Hypertension Qualifiers: Hypertension type: essential hypertension Qualified Code(s): I10 - Essential (primary) hypertension Is this a current diagnosis for this admission?: Yes (7) DM type 2 (diabetes mellitus, type 2) Qualifiers: Diabetes mellitus residential insulin use: with manager terminal use Diabetes mellitus complication status: with hyperglycemia Qualified Code(s): E11.65 - Type 2 diabetes mellitus with hyperglycemia; Z79.4 - manager terminal (current) use of insulin Is this a current diagnosis for this admission?: Yes (8) Deep vein thrombosis (DVT) of popliteal vein of right lower extremity Qualifiers: Chronicity: acute Qualified Code(s): I82.431 - Acute embolism and thr ombosis of right popliteal vein Is this a current diagnosis for this admission?: Yes (9) Deep venous thrombosis (DVT) of right peroneal vein Qualifiers: Chronicity: acute Qualified Code(s): I82.451 - Acute embolism and thrombosis of right peroneal vein Is this a current diagnosis for this admission?: Yes - Plan Summary Summary: (1) Bilateral pulmonary embolism Is this a current diagnosis for this admission?: Yes (2) Acute on chronic respiratory failure with hypoxia Is this a current diagnosis for this admission?: Yes (3) COPD (chronic obstructive pulmonary disease) Qualifiers: COPD type: unspecified COPD Qualified Code(s): J44.9 - Chronic obstructive pulmonary disease, unspecified Is this a current diagnosis for this admission?: Yes (4) Diastolic CHF, chronic Is this a current diagnosis for this admission?: Yes (5) Severe pulmonary arterial systolic hypertension Is this a current diagnosis for this admission?: Yes (6) Hypertension Qualifiers: Hypertension type: essential hypertension Qualified Code(s): I10 - Essential (primary) hypertension (7) DM type 2 (diabetes mellitus, type 2) Qualifiers: Diabetes mellitus residential insulin use: with manager terminal use Diabetes mellitus complication status: with hyperglycemia Qualified Code(s): E11.65 - Type 2 diabetes mellitus with hyperglycemia; Z79.4 - custodial (current) use of insulin Is this a current diagnosis for this admission?: Yes (8) Deep vein thrombosis (DVT) of popliteal vein of right lower extremity Qualifiers: Chronicity: acute Qualified Code(s): I82.431 - Acute embolism and thrombosis of right popliteal vein Is this a current diagnosis for this admission?: Yes (9) Deep venous thrombosis (DVT) of right peroneal vein Qualifiers: Chronicity: acute Qualified Code(s): I82.451 - Acute embolism and thrombosis of right peroneal vein Is this a current diagnosis for this admission?: Yes 11/04/1999 Patient is well-known to this provider. Bilateral pulmonary emboli-tolerating heparin infusion well. We will start direct oral anticoagulant therapy tomorrow. Deep venous thromboses in the right leg-the nanotechnology engineering technologist called me to let me know that the patient had a DVT in the right popliteal as well as the right peroneal veins. Continue heparin and change to oral anticoagulant therapy tomorrow. Acute on chronic respiratory failure with hypoxia-she still requires oxygen therapy. During her previous admission we did try to orchestrate home oxygen for the patient. With this new diagnosis I will look to see if she qualifies. With the bilateral pulmonary emboli on top of her already established pulmonary hypertension can certainly lead to oxygen dependence. Chronic diastolic heart failure-stable at this time. Will monitor intake and output. Primary cause of hypoxic failure bilateral pulmonary emboli. Diabetes mellitus type 2-the patient is on a controlled carbohydrate diet. Continue Accu-Cheks and sliding scale. - Time Time Spent with patient: 15-24 minutes Medications reviewed and adjusted accordingly: Yes Anticipated Discharge Disposition: Home with Home Health Anticipated Discharge Timeframe: within 72 hours
[2020-11-04] MEDS ORDERED: SODIUM CHLORIDE NASAL SPRAY 44 ML NASL PRN (17:58)
[2020-11-04] MEDS: HEPARIN SODIUM,PORCINE/D5W 25,000 UNIT/250 ML RTUINJ IV PRN (18:30)
--- NOTE | 2020-11-05 00:24 | CDI QUERY ---
CDI Query CDI Review: Per H&P: Bilateral pulmonary embolism Is this a current diagnosis for this admission?: Yes Plan: Patient was started on intravenous heparin drip. She is hemodynamically stable. She is fairly hypoxic but she has significant chronic hypoxemia. Her respiratory distress has resolved. Continue intravenous heparin drip for 24 to 48 hours and if she remains stable she can be converted to oral anticoagulant. Physical examination is not suspicious for DVT but she is going to have a venous ultrasound of the lower extremities. She is going to have an echocardiogram. At this point she is not a candidate for thrombolytic treatment. Based on your medical judgement, can you further clarify in the Progress Notes and carry through the Discharge Summary: Acute Pulmonary embolism with [facility] Chronic Pulmonary embolism with [facility] Acute on chronic Pulmonary embolism with [facility] [place] No [facility] [place] Unable to determine Other Thank you for your consideration. GAYE Plascencia RN Clinical Software Clerk Physician Advisor [email or web address]
[2020-11-05 03:39] LABS: APPEARANCE,URINE CLEAR; BILIRUBIN,URINE NEGATIVE (NEGATIVE); COLOR,URINE YELLOW; GLUCOSE, URINE 50 mg/dL (NEGATIVE); KETONES,URINE NEGATIVE (NEGATIVE); LEUKOCYTE ESTERASE,URINE NEGATIVE (NEGATIVE); NITRITE,URINE NEGATIVE (NEGATIVE); PROTEIN,URINE 100 mg/dL (NEGATIVE); URINE SPECIFIC GRAVITY 1.021; UROBILINOGEN,URINE NEGATIVE mg/dL (<2.0)
[2020-11-05 06:11] LABS: HEMATOCRIT 42.9 % (36.0-47.0); HEMOGLOBIN 14.4 g/dL (12.0-15.5); MEAN CORPUSCULAR HEMOGLOBIN 27.9 pg (27.0-33.4); MEAN CORPUSCULAR HGB CONC 33.7 g/dL (32.0-36.0); MEAN CORPUSCULAR VOLUME 83 fl (80-97); PLATELET COUNT 130 10^3/uL (150-450); RED BLOOD COUNT 5.17 10^6/uL (3.72-5.28); RED CELL DISTRIBUTION WIDTH 17.1 % (11.5-14.0)
[2020-11-05] MEDS: INSULIN LISPRO 100 UNIT/ML 3 ML VIAL SUBCUT SCH ×4 (07:35→22:02)
--- NOTE | 2020-11-05 08:59 | XCELERA REPORT ---
[address] [address] Transthoracic Echocardiogram Report Name: DAVIN HERNANDEZ Age: 85 yrs Gender: Female : 1935 Patient Status: Inpatient [facility] Study Date: 11/04/2020 01:49 PM Height: 64 in Weight: 153 lb BSA: 1.7 m2 Procedure: A complete two-dimensional transthoracic echocardiogram was performed (2D, M-mode, spectral and color flow Doppler). Study Quality: Good. Reason For Study: Pulmonary embolism Ordering Physician: SHEN VERONICA Performed By: Afua Hope Interpretation Summary There is mild concentric left ventricular hypertrophy. Left ventricular systolic function is normal. The Ejection Fraction estimate is 60-65%. Doppler measurements suggest pseudonormalized left ventricular relaxation, which is associated with grade II/IV or mild to moderate diastolic dysfunction. No regional wall motion abnormalities noted. Moderate to severe RVE. Severe RV systolic dysfunction. Severe FAIZAN. Mild MR, severe TR, moderfate PI. Severe pulmonary hypertension estimated to be between 82 and 87 mmHg. When compared to a prior study report dated 09/21/20: -RV is now dilated withe severe systolic dysfunction. -Pulmonary hypertension is significantly worse in the current study. MMode/2D Measurements & Calculations RVDd: 3.3 cm LVIDd: 4.0 cm FS: 31.4 % Ao root diam: 2.6 cm IVSd: 0.97 cm LVIDs: 2.7 cm EDV(Teich): 69.9 ml Ao root area: 5.2 cm2 LVPWd: 0.97 cm ESV(Teich): 28.1 ml EF(Teich): 59.8 % Doppler Measurements & Calculations MV E max arlyn: MV dec slope: Ao V2 max: LV V1 max P.7 cm/sec 294.0 cm/sec2 197.3 cm/sec 5.6 mmHg MV A max arlyn: MV dec time: Ao max PG: LV V1 max: 132.2 cm/sec 0.24 sec 15.6 mmHg 118.7 cm/sec MV E/A: 0.54 PA V2 max: PI end-d arlyn: TR max arlyn: 50.0 cm/sec 151.1 cm/sec 414.7 cm/sec PA max PG: TR max P.00 mmHg 69.1 mmHg Left Ventricle There is mild concentric left ventricular hypertrophy. Left ventricular systolic function is normal. The Ejection Fraction estimate is 60-65%. Doppler measurements suggest pseudonormalized left ventricular relaxation, which is associated with grade II/IV or mild to moderate diastolic dysfunction. No regional wall motion abnormalities noted. Right Ventricle The right ventricle is moderate to severely dilated. The right ventricular systolic function is severely reduced. Atria The right atrium is severely dilated. The left atrial size is normal. The interatrial septum is difficult to see, but appears to be grossly normal. Mitral Valve The mitral valve leaflets appear thickened, but open well. There is a mild amount of mitral regurgitation. Aortic Valve The aortic valve is sclerotic, but shows no functional abnormality. No aortic regurgitation is present. Tricuspid Valve Tricuspid leaflets are thickened. There is a severe amount of tricuspid regurgitation. There is servere pulmonary hypertension by echo. Best estimated RVSP is approximately 82-87 mm/Hg. Pulmonic Valve The pulmonic valve is normal in structure and function. There is a moderate amount of pulmonic regurgitation. Great Vessels The inferior vena cava appeared normal. Effusions There is no pericardial effusion. : SHEN VERONICA Antonio
[2020-11-05] MEDS: VALSARTAN 160 MG TABLET PO SCH (09:12)
[2020-11-05] MEDS: GABAPENTIN 100 MG CAPSULE PO SCH ×3 (09:15→22:03)
[2020-11-05] MEDS: PANTOPRAZOLE SODIUM 20 MG TABLET.DR PO SCH (09:15)
[2020-11-05] MEDS: METOPROLOL SUCCINATE 25 MG TAB.SR.24H PO SCH (09:16)
[2020-11-05] MEDS: APIXABAN 5 MG TABLET PO SCH ×2 (09:16→17:56)
[2020-11-05] MEDS: AMLODIPINE BESYLATE 10 MG TABLET PO SCH (09:16)
[2020-11-05] MEDS: CYCLOSPORINE 0.05% OPH EMULSIO 0.4 ML DROPERETTE OU SCH ×2 (09:17→22:03)
[2020-11-05] MEDS: INSULIN GLARGINE,HUM.REC.ANLOG 1,000 UNIT/10 ML VIAL SUBCUT SCH (09:17)
[2020-11-05] MEDS: CETIRIZINE 10 MG TABLET PO SCH (09:17)
--- NOTE | 2020-11-05 09:43 | PDOC PROGRESS REPORT ---
Subjective Date:: 11/05/20 Subjective:: Is resting comfortably. She has no complaints. Her nasal cannula is actually r esting on the top of her head. Her finger probe is actually off and she is losing the IV in her left antecubital fossa. Reason For Visit: PULMONARY EMBOLISM Right leg deep venous thrombosis Severe acute pulmonary hypertension on chronic pulmonary hypertension Acute cor pulmonale Physical Exam Vital Signs: Temp Pulse Resp BP Pulse Ox 98.0 F 77 20 105/68 91 L 11/05/20 08:44 11/05/20 08:44 11/05/20 08:44 11/05/20 08:44 11/05/20 08:44 Intake & Output 11/04/20 11/05/20 11/06/20 06:59 06:59 06:59 Intake Total 760 1005 Output Total 1150 Balance -390 1005 Weight 66.1 kg 66.6 kg General appearance: PRESENT: cooperative, mild distress, well-developed Head exam: PRESENT: atraumatic, normocephalic Eye exam: PRESENT: conjunctiva pink, EOMI. ABSENT: scleral icterus Ear exam: PRESENT: normal external ear exam. ABSENT: bleeding, drainage Mouth exam: PRESENT: moist, tongue midline Respiratory exam: PRESENT: clear to auscultation nicolas, symmetrical, unlabored. ABSENT: rales, rhonchi, tachypnea, wheezes Cardiovascular exam: PRESENT: RRR, +S1, +S2. ABSENT: bradycardia, diastolic murmur, irregular rhythm, systolic murmur, tachycardia GI/Abdominal exam: PRESENT: normal bowel sounds, soft. ABSENT: tenderness Rectal exam: PRESENT: deferred Gentrourinary exam: ABSENT: indwelling catheter Extremities exam: PRESENT: other - Right leg still slightly larger than the left Neurological exam: PRESENT: alert, awake, oriented to person, oriented to place, oriented to time, oriented to situation, CN II-XII grossly intact. ABSENT: altered Psychiatric exam: PRESENT: appropriate affect. ABSENT: agitated, anxious Focused psych exam: ABSENT: delusional, paranoid, restlessness Skin exam: PRESENT: dry, normal color, warm. ABSENT: rash Results Laboratory Results: 11/05/20 05:30 11/04/20 02:30 11/05/20 11/05/20 03:23 05:30 WBC 10.0 RBC 5.17 Hgb 14.4 Hct 42.9 MCV 83 MCH 27.9 MCHC 33.7 RDW 17.1 H Plt Count 130 L Urine Color YELLOW Urine Appearance CLEAR Urine pH 5.0 Ur Specific [place] 1.021 Urine Protein 100 H Urine Glucose (UA) 50 H Urine Ketones NEGATIVE Urine Blood NEGATIVE Urine Nitrite NEGATIVE Ur Leukocyte Esterase NEGATIVE Urine WBC (Auto) 4 Urine RBC (Auto) 1 11/03/20 11/03/20 11/03/20 14:30 14:30 18:33 Troponin I 0.070 0.081 NT-Pro-B Natriuret Pep 6930 H 11/03/20 11/04/20 11/04/20 22:14 02:30 09:42 Troponin I 0.083 0.079 0.060 NT-Pro-B Natriuret Pep Impressions: Chest X-Ray 11/03/20 15:20 IMPRESSION: Hyperinflated lungs with chronic pleural and parenchymal scarring 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 No evidence of a cute cardiopulmonary disease. Chest/Abdomen CTA 11/03/20 17:55 IMPRESSION: 1. Bilateral pulmonary emboli as described. Moderate clot burden. 2. Chronic lung changes. Cannot exclude a limited acute infiltrate in the superior aspect of the right lower lobe. Venous Doppler Study 11/04/20 00:00 IMPRESSION: Occlusive and nonocclusive thrombus are seen within the right peroneal and popliteal veins. No left lower extremity thrombus. Assessment and Plan - Diagnosis (1) Bilateral pulmonary embolism Is this a current diagnosis for this admission?: Yes (2) Acute on chronic respiratory failure with hypoxia Is this a current diagnosis for this admission?: Yes (3) COPD (chronic obstructive pulmonary disease) Qualifiers: COPD type: unspecified COPD Qualified Code(s): J44.9 - Chronic obstructive pulmonary disease, unspecified Is this a current diagnosis for this admission?: Yes (4) Diastolic CHF, chronic Is this a current diagnosis for this admission?: Yes (5) Pulmonary hypertension with acute cor pulmonale Is this a current diagnosis for this admission?: Yes (6) Severe pulmonary arterial systolic hypertension Is this a current diagnosis for this admission?: Yes (7) Hypertension Qualifiers: Hypertension type: essential hypertension Qualified Code(s): I10 - Essential (primary) hypertension Is this a current diagnosis for this admission?: Yes (8) DM type 2 (diabetes mellitus, type 2) Qualifiers: Diabetes mellitus terminal system operator insulin use: with terminal system operator use Diabetes mellitus complication status: with hyperglycemia Qualified Code(s): E11.65 - Type 2 diabetes mellitus with hyperglycemia; Z79.4 - half-way (current) use of insulin Is this a current diagnosis for this admission?: Yes (9) Deep vein thrombosis (DVT) of popliteal vein of right lower extremity Qualifiers: Chronicity: acute Qualified Code(s): I82.431 - Acute embolism and thrombosis of right popliteal vein Is this a current diagnosis for this admission?: Yes (10) Deep venous thrombosis (DVT) of right peroneal vein Qualifiers: Chronicity: acute Qualified Code(s): I82.451 - Acute embolism and thrombosis of right peroneal vein Is this a current diagnosis for this admission?: Yes - Plan Summary Summary: (1) Bilateral pulmonary embolism Is this a current diagnosis for this admission?: Yes (2) Acute on chronic respiratory failure with hypoxia Is this a current diagnosis for this admission?: Yes (3) COPD (chronic obstructive pulmonary disease) Qualifiers: COPD type: unspecified COPD Qualified Code(s): J44.9 - Chronic obstructive pulmonary disease, unspecified Is this a current diagnosis for this admission?: Yes (4) Diastolic CHF, chronic Is this a current diagnosis for this admission?: Yes (5) Severe pulmonary arterial systolic hypertension Is this a current diagnosis for this admission?: Yes (6) Hypertension Qualifiers: Hypertension type: essential hypertension Qualified Code(s): I10 - Essential (primary) hypertension (7) DM type 2 (diabetes mellitus, type 2) Qualifiers: Diabetes mellitus terminal system operator insulin use: with nursing home use Diabetes mellitus complication status: with hyperglycemia Qualified Code(s): E11.65 - Type 2 diabetes mellitus with hyperglycemia; Z79.4 - half-way (current) use of insulin Is this a current diagnosis for this admission?: Yes (8) Deep vein thrombosis (DVT) of popliteal vein of right lower extremity Qualifiers: Chronicity: acute Qualified Code(s): I82.431 - Acute embolism and thrombosis of right popliteal vein Is this a current diagnosis for this admission?: Yes (9) Deep venous thrombosis (DVT) of right peroneal vein Qualifiers: Chronicity: acute Qualified Code(s): I82.451 - Acute embolism and thrombosis of right peroneal vein Is this a current diagnosis for this admission?: Yes (10) Acute cor pulmonale with pulmonary hypertension 11/04/1999 Patient is well-known to this provider. Bilateral pulmonary emboli-tolerating heparin infusion well. We will start direct oral anticoagulant therapy tomorrow. Deep venous thromboses in the right leg-the dispensary technician called me to let me know that the patient had a DVT in the right popliteal as well as the right peroneal veins. Continue heparin and change to oral anticoagulant therapy tomorrow. Acute on chronic respiratory failure with hypoxia-she still requires oxygen therapy. During her previous admission we did try to orchestrate home oxygen for the patient. With this new diagnosis I will look to see if she qualifies. With the bilateral pulmonary emboli on top of her already established pulmonary hypertension can certainly lead to oxygen dependence. Chronic diastolic heart failure-stable at this time. Will monitor intake and output. Primary cause of hypoxic failure bilateral pulmonary emboli. Diabetes mellitus type 2-the patient is on a controlled carbohydrate diet. Continue Accu-Cheks and sliding scale. 11/05/2019 Bilateral pulmonary emboli-the patient has chronic pulmonary hypertension however with the bilateral pulmonary emboli it has worsened her pulmonary hypertension. She now has severe pulmonary hypertension with acute cor pulmonale. Echocardiogram demonstrated the right heart strain. She will transition to Eliquis from heparin infusion this morning. Because of the severe pulmonary hypertension she will likely require home oxygen therapy at this time. DVT-transition to Eliquis as above Diabetes mellitus-currently on Lantus with AC Humalog and sliding scale. Continue to monitor. Hypertension-continue to monitor vital signs and adjust medications accordingly Chronic diastolic heart failure-stable at this time Chronic obstructive pulmonary disease-stable. Overwhelmed by the pulmonary emboli with cor pulmonale and worsened pulmonary hypertension. - Time Time Spent with patient: 15-24 minutes Medications reviewed and adjusted accordingly: Yes Anticipated Discharge Disposition: Home with Home Health Anticipated Discharge Timeframe: within 72 hours
[2020-11-06 06:15] LABS: ABSOLUTE EOSINOPHILS # (AUTO) 0.1 10^3/uL (0.0-0.6); ABSOLUTE LYMPHOCYTES (AUTO) 2.2 10^3/uL (0.5-4.7); ABSOLUTE MONOCYTES (AUTO) 0.8 10^3/uL (0.1-1.4); ABSOLUTE NEUT (AUTO) 4.6 10^3/uL (1.7-8.2); BASOPHILS % (AUTO) 0.3 % (0-2); EOSINOPHILS % (AUTO) 1.1 % (0-6); HEMATOCRIT 42.1 % (36.0-47.0); LYMPHOCYTES % (AUTO) 29.2 % (13-45); MEAN CORPUSCULAR HEMOGLOBIN 27.7 pg (27.0-33.4); MEAN CORPUSCULAR HGB CONC 33.3 g/dL (32.0-36.0); MEAN CORPUSCULAR VOLUME 83 fl (80-97); MONOCYTES % (AUTO) 9.8 % (3-13); PLATELET COUNT 140 10^3/uL (150-450); RED BLOOD COUNT 5.05 10^6/uL (3.72-5.28); SEGMENTED NEUTROPHILS % (AUTO) 59.6 % (42-78); TOTAL CELLS COUNTED % (AUTO) 100 %; WHITE BLOOD COUNT 7.7 10^3/uL (4.0-10.5)
[2020-11-06 06:38] LABS: ANION GAP 7 (5-19); BLOOD UREA NITROGEN 19 mg/dL (7-20); CALCIUM 8.8 mg/dL (8.4-10.2); CARBON DIOXIDE 25 mmol/L (22-30); CHLORIDE 107 mmol/L (98-107); GLUCOSE 82 mg/dL (75-110); POTASSIUM 4.2 mmol/L (3.6-5.0)
[2020-11-06] MEDS: INSULIN LISPRO 100 UNIT/ML 3 ML VIAL SUBCUT SCH ×2 (08:54→11:32)
[2020-11-06] MEDS: INSULIN GLARGINE,HUM.REC.ANLOG 1,000 UNIT/10 ML VIAL SUBCUT SCH (10:11)
[2020-11-06] MEDS: PANTOPRAZOLE SODIUM 20 MG TABLET.DR PO SCH (10:11)
[2020-11-06] MEDS: CETIRIZINE 10 MG TABLET PO SCH (10:12)
[2020-11-06] MEDS: VALSARTAN 160 MG TABLET PO SCH (10:12)
[2020-11-06] MEDS: APIXABAN 5 MG TABLET PO SCH (10:12)
[2020-11-06] MEDS: AMLODIPINE BESYLATE 10 MG TABLET PO SCH (10:12)
[2020-11-06] MEDS: METOPROLOL SUCCINATE 25 MG TAB.SR.24H PO SCH (10:12)
[2020-11-06] MEDS: GABAPENTIN 100 MG CAPSULE PO SCH (10:12)
[2020-11-06] MEDS: CYCLOSPORINE 0.05% OPH EMULSIO 0.4 ML DROPERETTE OU SCH (10:13)
[2020-11-06 11:49] VITALS: BP 122/86
--- NOTE | 2020-11-06 13:23 | PDOC DISCHARGE SUMMARY ---
Impression - Admit/DC Date/PCP Admission Date/Primary Care Provider: 11/03/20 20:11 RAMILA ESCALONA MD Discharge Date: 11/06/20 - Discharge Diagnosis (1) Bilateral pulmonary embolism Is this a current diagnosis for this admission?: Yes (2) Acute on chronic respiratory failure with hypoxia Is this a current diagnosis for this admission?: Yes (3) COPD (chronic obstructive pulmonary disease) Is this a current diagnosis for this admission?: Yes (4) Diastolic CHF, chronic Is this a current diagnosis for this admission?: Yes (5) Pulmonary hypertension with acute cor pulmonale Is this a current diagnosis for this admission?: Yes (6) Severe pulmonary arterial systolic hypertension Is this a current diagnosis for this admission?: Yes (7) Hypertension Is this a current diagnosis for this admission?: Yes (8) DM type 2 (diabetes mellitus, type 2) Is this a current diagnosis for this admission?: Yes (9) Deep vein thrombosis (DVT) of popliteal vein of right lower extremity Is this a current diagnosis for this admission?: Yes (10) Deep venous thrombosis (DVT) of right peroneal vein Is this a current diagnosis for this admission?: Yes - Assessment Summary: (1) Bilateral pulmonary embolism Is this a current diagnosis for this admission?: Yes (2) Acute on chronic respiratory failure with hypoxia Is this a current diagnosis for this admission?: Yes (3) COPD (chronic obstructive pulmonary disease) Qualifiers: COPD type: unspecified COPD Qualified Code(s): J44.9 - Chronic obstructive pulmonary disease, unspecified Is this a current diagnosis for this admission?: Yes (4) Diastolic CHF, chronic Is this a current diagnosis for this admission?: Yes (5) Severe pulmonary arterial systolic hypertension Is this a current diagnosis for this admission?: Yes (6) Hypertension Qualifiers: Hypertension type: essential hypertension Qualified Code(s): I10 - Essential (primary) hypertension (7) DM type 2 (diabetes mellitus, type 2) Qualifiers: Diabetes 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 Diabetes mellitus complication status: with hyperglycemia Qualified Code(s): E11.65 - Type 2 diabetes mellitus with hyperglycemia; Z79.4 - retirement (current) use of insulin Is this a current diagnosis for this admission?: Yes (8) Deep vein thrombosis (DVT) of popliteal vein of right lower extremity Qualifiers: Chronicity: acute Qualified Code(s): I82.431 - Acute embolism and thrombosis of right popliteal vein Is this a current diagnosis for this admission?: Yes (9) Deep venous thrombosis (DVT) of right peroneal vein Qualifiers: Chronicity: acute Qualified Code(s): I82.451 - Acute embolism and thrombosis of right peroneal vein Is this a current diagnosis for this admission?: Yes (10) Acute cor pulmonale with pulmonary hypertension 11/04/2020 Patient is well-known to this provider. Bilateral pulmonary emboli-tolerating heparin infusion well. We will start direct oral anticoagulant therapy tomorrow. Deep venous thromboses in the right leg-the log data technician called me to let me know that the patient had a DVT in the right popliteal as well as the right peroneal veins. Continue heparin and change to oral anticoagulant therapy tomorrow. Acute on chronic respiratory failure with hypoxia-she still requires oxygen therapy. During her previous admission we did try to orchestrate home oxygen for the patient. With this new diagnosis I will look to see if she qualifies. With the bilateral pulmonary emboli on top of her already established pulmonary hypertension can certainly lead to oxygen dependence. Chronic diastolic heart failure-stable at this time. Will monitor intake and output. Primary cause of hypoxic failure bilateral pulmonary emboli. Diabetes mellitus type 2-the patient is on a controlled carbohydrate diet. Continue Accu-Cheks and sliding scale. 11/05/2020 Bilateral pulmonary emboli-the patient has chronic pulmonary hypertension however with the bilateral pulmonary emboli it has worsened her pulmonary hypertension. She now has severe pulmonary hypertension with acute cor pulmonale. Echocardiogram demonstrated the right heart strain. She will transition to Eliquis from heparin infusion this morning. Because of the severe pulmonary hypertension she will likely require home oxygen therapy at this time. DVT-transition to Eliquis as above Diabetes mellitus-currently on Lantus with AC Humalog and sliding scale. Continue to monitor. Hypertension-continue to monitor vital signs and adjust medications accordingly Chronic diastolic heart failure-stable at this time Chronic obstructive pulmonary disease-stable. Overwhelmed by the pulmonary emboli with cor pulmonale and worsened pulmonary hypertension. 11/06/2020 The patient has been stable. Home oxygen has been delivered. She is tolerating Eliquis 10 mg twice daily. She is stable for home. 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 in 2 weeks - Additional Information Resuscitation Status: Do Not Resuscitate Discharge Diet: Cardiac, Diabetic Discharge Activity: Balance Activity w/Rest, Slowly Increase Activity Referrals: RAMILA ESCALONA MD [Primary Care Provider] - Follow up as needed Prescriptions: Apixaban [Eliquis] 5 mg PO ASDIR #1 tab.ds.pk Apixaban [Eliquis] 5 mg PO ASDIR #1 tab.ds.pk Apixaban [Eliquis] 5 mg PO ASDIR #1 tab.ds.pk Home Medications: Insulin Glargine,Hum.rec.anlog [Lantus Insulin 100 Unit/mL Insulin Pen] 14 unit SUBCUT QPM 09/21/20 Metoprolol Succinate [Toprol Xl 25 mg Tab.sr] 25 mg PO DAILY 09/21/20 Omeprazole 20 mg PO DAILY 09/21/20 Telmisartan/Amlodipine [Telmisartan-Amlodipine 40-10] 1 each PO DAILY 09/21/20 Umeclidinium Brm/Vilanterol Tr [Anoro Ellipta 62.5-25 Mcg INH] 1 each IH DAILY 09/21/20 Glimepiride [Amaryl 4 mg Tablet] 4 mg PO DAILY 09/23/20 Gabapentin [Neurontin 100 mg Capsule] 200 mg PO Q12 capsule 09/27/20 Cetirizine HCl [Zyrtec 10 mg Tablet] 10 mg PO DAILY 11/03/20 Cyclosporine 0.05% Oph Emulsio [Restasis 0.05% Oph Emulsion Pf 0.4 ml] 1 drop OU Q12 11/03/20 Furosemide [Lasix 20 mg Tablet] 20 mg PO QAM 11/03/20 Apixaban [Eliquis] 5 mg PO ASDIR #1 tab.ds.pk 11/06/20 Apixaban [Eliquis] 5 mg PO ASDIR #1 tab.ds.pk 11/06/20 Apixaban [Eliquis] 5 mg PO ASDIR #1 tab.ds.pk 11/06/20 Metoprolol Succinate [Toprol Xl 25 mg Tab.sr] 25 mg PO DAILY tab.sr.24h 11/06/20 Sodium Chloride [Varnell Nasal Fletcher 44 ml Bottle] 1 spray NASL Q4HP PRN bottle 01/23/21 History of Present Illiness History of Present Illness: DAVIN HERNANDEZ is a 85 year old female who is on chronic oxygen 3.5 L/min via nasal cannula for advanced COPD and congestive heart failure secondary to diastolic dysfunction. She has chronic shortness of breath which she tolerates fairly well. For the last 24 hours she was developing increasing shortness of breath, she could not speak in full sentences. Eventually ambulance was called. She was put on nonrebreather mask but later when she was tapered down to 6 L/min nasal oxygen. She is breathing comfortably now even though her oxygen saturation is 90 to 92%. She said her breathing is back to so-called normal. Denies any chest pain. She did not have any leg swelling. She has some chronic diarrhea. No nausea or vomiting. The patient is compliant with her medications. When I saw her she did not appear to be in any distress. She was diagnosed with pulmonary emboli, she was started on intravenous heparin drip. Hospital Course Hospital Course: As outlined above. Patient had a relatively unremarkable course. Physical Exam Vital Signs: Temp Pulse Resp BP Pulse Ox 97.6 F 70 20 122/86 H 94 11/06/20 11:13 11/06/20 11:13 11/06/20 11:13 11/06/20 11:13 11/06/20 11:13 Intake & Output 11/05/20 11/06/20 11/07/20 06:59 06:59 06:59 Intake Total 1005 588 Balance 1005 588 Weight 66.6 kg 68.6 kg General appearance: PRESENT: no acute distress, cooperative, well-developed Respiratory exam: PRESENT: clear to auscultation nicolas, symmetrical, other - Decreased inspiratory phase. ABSENT: rales, rhonchi, tachypnea, wheezes Cardiovascular exam: PRESENT: RRR, +S1, +S2. ABSENT: bradycardia, diastolic murmur, irregular rhythm, systolic murmur, tachycardia GI/Abdominal exam: PRESENT: normal bowel sounds, soft. ABSENT: distended, guarding, tenderness Rectal exam: PRESENT: deferred Gentrourinary exam: ABSENT: indwelling catheter Extremities exam: ABSENT: pedal edema Musculoskeletal exam: PRESENT: ambulatory. ABSENT: deformity, dislocation Neurological exam: PRESENT: alert, awake, oriented to person, oriented to place, oriented to time, oriented to situation, CN II-XII grossly intact. ABSENT: altered Psychiatric exam: PRESENT: appropriate affect, normal mood. ABSENT: agitated, anxious Focused psych exam: ABSENT: delusional, paranoid, restlessness Results Laboratory Results: WBC 7.7 10^3/uL (4.0-10.5) 11/06/20 04:49 RBC 5.05 10^6/uL (3.72-5.28) 11/06/20 04:49 Hgb 14.0 g/dL (12.0-15.5) 11/06/20 04:49 Hct 42.1 % (36.0-47.0) 11/06/20 04:49 MCV 83 fl (80-97) 11/06/20 04:49 MCH 27.7 pg (27.0-33.4) 11/06/20 04:49 MCHC 33.3 g/dL (32.0-36.0) 11/06/20 04:49 RDW 17.0 % (11.5-14.0) H 11/06/20 04:49 Plt Count 140 10^3/uL (150-450) L 11/06/20 04:49 Lymph % (Auto) 29.2 % (13-45) 11/06/20 04:49 [place] % (Auto) 9.8 % (3-13) 11/06/20 04:49 Eos % (Auto) 1.1 % (0-6) 11/06/20 04:49 Baso % (Auto) 0.3 % (0-2) 11/06/20 04:49 Absolute Neuts (auto) 4.6 10^3/uL (1.7-8.2) 11/06/20 04:49 Absolute Lymphs (auto) 2.2 10^3/uL (0.5-4.7) 11/06/20 04:49 Absolute Monos (auto) 0.8 10^3/uL (0.1-1.4) 11/06/20 04:49 Absolute Eos (auto) 0.1 10^3/uL (0.0-0.6) 11/06/20 04:49 Absolute Basos (auto) 0.0 10^3/uL (0.0-0.2) 11/06/20 04:49 Seg Neutrophils % 59.6 % (42-78) 11/06/20 04:49 PT 12.2 SEC (11.4-15.4) 11/03/20 14:30 INR 0.88 11/03/20 14:30 APTT 113.6 SEC (23.5-35.8) H 11/05/20 05:30 D-Dimer 6.88 ug/mL (0.00-0.50) H 11/03/20 14:30 Carbonic Acid 1.05 mmol/L (1.05-1.35) 11/03/20 19:55 HCO3/H2CO3 Ratio 23:1 11/03/20 19:55 ABG pH 7.47 (7.35-7.45) H 11/03/20 19:55 ABG pCO2 34.8 mmHg (35-45) L 11/03/20 19:55 ABG pO2 56.9 mmHg (80-100) L 11/03/20 19:55 ABG HCO3 24.7 mmol/L (20-24) H 11/03/20 19:55 ABG Total CO2 25.8 mmol/L (21-25) H 11/03/20 19:55 ABG O2 Saturation 91.5 % (94-98) L 11/03/20 19:55 ABG Base Excess 1.6 mmol/L 11/03/20 19:55 VBG pH 7.36 (7.30-7.42) 11/03/20 17:44 VBG pCO2 48.3 mmHg (35-63) 11/03/20 17:44 VBG HCO3 26.7 mmol/L (20-32) 11/03/20 17:44 VBG Base Excess 0.5 mmol/L 11/03/20 17:44 FiO2 6L 11/03/20 19:55 Sodium 139.3 mmol/L (137-145) 11/06/20 04:49 Potassium 4.2 mmol/L (3.6-5.0) 11/06/20 04:49 Chloride 107 mmol/L (98-107) 11/06/20 04:49 Carbon Dioxide 25 mmol/L (22-30) 11/06/20 04:49 Anion Gap 7 (5-19) 11/06/20 04:49 BUN 19 mg/dL (7-20) 11/06/20 04:49 Creatinine 0.83 mg/dL (0.52-1.25) 11/06/20 04:49 Est GFR ( Amer) > 60 (>60) 11/06/20 04:49 Est GFR (MDRD) Non-Af > 60 (>60) 11/06/20 04:49 Glucose 82 mg/dL (75-110) 11/06/20 04:49 POC Glucose 164 mg/dL (70-110) H 11/06/20 11:12 Hemoglobin A1c % 10.4 % (4.7-6.0) H 11/04/20 02:30 Calcium 8.8 mg/dL (8.4-10.2) 11/06/20 04:49 Magnesium 1.9 mg/dL (1.6-2.3) 11/06/20 04:49 Ferritin 263.00 ng/mL (11.1-264.0) 11/03/20 14:30 Total Bilirubin 0.5 mg/dL (0.2-1.3) 11/04/20 02:30 Direct Bilirubin 0.2 mg/dL (0.0-0.4) 11/04/20 02:30 Neonat Total Bilirubin Not Reportable 11/04/20 02:30 Neonat Direct Bilirubin Not Reportable 11/04/20 02:30 Neonat Indirect Bili Not Reportable 11/04/20 02:30 AST 20 U/L (14-36) 11/04/20 02:30 ALT 17 U/L (<35) 11/04/20 02:30 Alkaline Phosphatase 130 U/L (38-126) H 11/04/20 02:30 Troponin I 0.060 ng/mL 11/04/20 09:42 C-Reactive Protein 12.4 mg/L (<10.0) H 11/03/20 14:30 NT-Pro-B Natriuret Pep 6930 pg/mL (<450) H 11/03/20 14:30 Total Protein 6.0 g/dL (6.3-8.2) L 11/04/20 02:30 Albumin 3.3 g/dL (3.5-5.0) L 11/04/20 02:30 TSH 1.88 uIU/mL (0.47-4.68) 11/04/20 04:12 Urine Color YELLOW 11/05/20 03:23 Urine Appearance CLEAR 11/05/20 03:23 Urine pH 5.0 (5.0-9.0) 11/05/20 03:23 Ur Specific [place] 1.021 11/05/20 03:23 Urine Protein 100 mg/dL (NEGATIVE) H 11/05/20 03:23 Urine Glucose (UA) 50 mg/dL (NEGATIVE) H 11/05/20 03:23 Urine Ketones NEGATIVE mg/dL (NEGATIVE) 11/05/20 03:23 Urine Blood NEGATIVE (NEGATIVE) 11/05/20 03:23 Urine Nitrite NEGATIVE (NEGATIVE) 11/05/20 03:23 Urine Bilirubin NEGATIVE (NEGATIVE) 11/05/20 03:23 Urine Urobilinogen NEGATIVE mg/dL (<2.0) 11/05/20 03:23 Ur Leukocyte Esterase NEGATIVE (NEGATIVE) 11/05/20 03:23 Urine WBC (Auto) 4 /HPF 11/05/20 03:23 Urine RBC (Auto) 1 /HPF 11/05/20 03:23 U Hyaline Cast (Auto) 1 /LPF 11/05/20 03:23 Urine Bacteria (Auto) TRACE /HPF 11/05/20 03:23 Squamous Epi Cells Auto <1 /HPF 11/05/20 03:23 Urine Mucus (Auto) RARE /LPF 11/05/20 03:23 Urine Ascorbic Acid NEGATIVE (NEGATIVE) 11/05/20 03:23 Influenza A (RT-PCR) NEGATIVE (NEGATIVE) 11/03/20 16:54 Influenza B (RT-PCR) NEGATIVE (NEGATIVE) 11/03/20 16:54 RSV (RT-PCR) NEGATIVE (NEGATIVE) 11/03/20 16:54 SARS-CoV-2 Rap RNA(RT-PCR) NEGATIVE (NEGATIVE) 11/03/20 16:54 11/03/20 11/03/20 11/03/20 14:30 14:30 18:33 Troponin I 0.070 0.081 NT-Pro-B Natriuret Pep 6930 H 11/03/20 11/04/20 11/04/20 22:14 02:30 09:42 Troponin I 0.083 0.079 0.060 NT-Pro-B Natriuret Pep Impressions: Chest X-Ray 11/03/20 15:20 IMPRESSION: Hyperinflated lungs with chronic pleural and parenchymal scarring 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 No evidence of acute cardiopulmonary disease. Chest/Abdomen CTA 11/03/20 17:55 IMPRESSION: 1. Bilateral pulmonary emboli as described. Moderate clot burden. 2. Chronic lung changes. Cannot exclude a limited acute infiltrate in the superior aspect of the right lower lobe. Venous Doppler Study 11/04/20 00:00 IMPRESSION: Occlusive and nonocclusive thrombus are seen within the right peroneal and popliteal veins. No left lower extremity thrombus. Plan Health Concerns: Bilateral pulmonary emboli and residual DVT (right popliteal and right peroneal veins) in patient with already existing pulmonary hypertension. She now has severe pulmonary hypertension and is requiring oxygen. Plan of Treatment: Continue anticoagulation. Hopefully clot burden will decrease. Continue other medications as before. Goals: Improvement of pulmonary status especially as it affects her cardiac status Time Spent: Greater than 30 Minutes Stroke Is this a Stroke Patient?: No Acute Heart Failure Is this a Heart Failure Patient?: No
== END 2020-11-06 14:06 | disposition home health service (06) | DRG 175 ==
LOC: ER 14:52 → EH 20:11 → 5 11-04 00:22
PROVIDERS: ADMIT Internal Medicine; ATTEND Hospitalist
PROC: B24BZZ4 Ultrasonography of Heart with Aorta, Transesophageal (ICD-10-PCS; principal; 2020-11-05)
DX: I26.99 Other pulmonary embolism without acute cor pulmonale (principal); J96.21 Acute and chronic respiratory failure with hypoxia; I50.32 Chronic diastolic (congestive) heart failure; I82.431 Acute embolism and thrombosis of right popliteal vein; I82.451 Acute embolism and thrombosis of right peroneal vein; Z20.822 Contact with and (suspected) exposure to COVID-19; J44.9 Chronic obstructive pulmonary disease, unspecified; I27.21 Secondary pulmonary arterial hypertension; I11.0 Hypertensive heart disease with heart failure; E11.65 Type 2 diabetes mellitus with hyperglycemia; E78.5 Hyperlipidemia, unspecified; Z66 Do not resuscitate; I25.2 Old myocardial infarction; Z79.4 Long term (current) use of insulin; Z79.899 Other long term (current) drug therapy; Z79.01 Long term (current) use of anticoagulants; Z99.81 Dependence on supplemental oxygen; Z88.2 Allergy status to sulfonamides; Z88.8 Allergy status to other drugs, medicaments and biological substances
CPT/HCPCS: 36415; 71045; 71275; 80048; 80053; 81001; 82728; 82803; 82962; 83036; 83735; 83880; 84443; 84484; 85025; 85027; 85379; 85610; 85730; 86140; 93005; 93010; 93306; 93970; 96360; 99285; 0241U; C9803; J1644; J1815; J3490; J7040